=== PATIENT | female | born 1940 | race Hispanic/Latino ===

== ENCOUNTER 2020-03-17 12:53 | Inpatient (IN) | payer MEDICARE, OTHER ==
[~2020-03-17] VITALS: Ht 162.6 cm; Wt 72.2 kg
[2020-03-17 13:35] LABS: BASOPHILS # (AUTO) 0.1 (0.0-0.1); BASOPHILS % 0.7 % (0.0-1.0); EOSINOPHILS # (AUTO) 0.2 (0.0-0.4); EOSINOPHILS % 2.4 % (0.0-6.0); HEMATOCRIT 27.7 % (34.2-44.1); HEMOGLOBIN 8.1 g/dL (12.0-16.0); LYMPHOCYTES # (AUTO) 2.5 (1.0-3.2); LYMPHOCYTES % 27.6 % (18.0-39.1); MEAN CORPUSCULAR HEMOGLOBIN 22.4 pg (28-32); MEAN CORPUSCULAR HGB CONC 29.2 g/dL (31-35); MEAN CORPUSCULAR VOLUME 76.5 fL (81-99); MONOCYTES # (AUTO) 1.1 (0.2-0.8); MONOCYTES % 11.9 % (4.4-11.3); NEUTROPHILS # (AUTO) 5.2 (2.1-6.9); NEUTROPHILS % 56.7 % (38.7-80.0); PLATELET COUNT 265 x10e3/uL (140-360); RED BLOOD COUNT 3.62 x10e6/uL (3.6-5.1); RED CELL DISTRIBUTION WIDTH 21.9 % (11.7-14.4)
--- NOTE | 2020-03-17 13:41 | Diagnostic Imaging Report ---
EXAMINATION: CHEST SINGLE (PORTABLE) INDICATION: Chest pain COMPARISON: None FINDINGS: LINES/TUBES:EKG leads overlie the chest. LUNGS:The lungs are moderately inflated. There is perihilar fullness and indistinctness of the pulmonary vasculature. PLEURA:No pleural effusion or pneumothorax. MEDIASTINUM:The cardiomediastinal silhouette appears normal in size and shape. Atherosclerotic calcifications of the thoracic aorta. Postoperative findings of prior CABG. BONES/SOFT TISSUES:No acute osseous injury. Sternotomy wires in place. ABDOMEN:No free air under the diaphragm. IMPRESSION: Central pulmonary vascular congestion. No focal consolidation or jamal airspace edema. Signed by: Rick Talley MD on 03/17/2020 1:38 PM
[2020-03-17 13:46] LABS: INR 1.05; PROTHROMBIN TIME 14.2 seconds (11.9-14.5)
[2020-03-17 13:47] LABS: PARTIAL THROMBOPLASTIN TIME 33.2 seconds (23.8-35.5)
[2020-03-17 13:56] LABS: ALBUMIN 2.8 g/dL (3.5-5.0); ALBUMIN/GLOBULIN RATIO 0.8 (0.8-2.0); ANION GAP 12.8 mmol/L (8-16); CALCIUM 8.9 mg/dL (8.4-10.2); CREATININE, SERUM 1.2 mg/dL (0.57-1.11); POTASSIUM 4.8 mmol/L (3.5-5.1)
[2020-03-17 14:02] LABS: CREATINE KINASE MB 2.1 ng/mL (0-5.0)
--- NOTE | 2020-03-17 14:49 | Emergency Department Note ---
History of Present Illnes History of Present Illness Chief Complaint: Chest Pain History of Present Illness This is a 79 year old female . 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 PT WENT TO [facility] TODAY BECAUSE SHE HAD CP LAST NIGHT/GERD AND WANT TO GET IT CHECKED OUT. PT AAOX4. PT WITH PREVIOUS EXTENSIVE CARDIAC HX. CABG 2017. SKIN W/D. SINUS WIDE QRS. 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: O2, EKG, See EMS Report Onset (how long ago): day(s) (1) Location: CHEST Quality: DULL Radiation: Denies non-radiation, Denies back, Denies neck, Denies extremity, Denies abdomen, Denies periumbilical, Denies flank, Denies proximal, Denies distal, Denies other Severity: mild Onset quality: gradual Duration (how long): day(s) (1) Timing of current episode: constant, intermittent Progression: waxing and waning Chronicity: new Context: Denies recent illness, Denies recent surgery, Denies recent immobilization, Denies recent travel, Denies trauma/injury, Denies new medications, Denies hx of DVT/PE, Denies non-compliance w/ medications, Denies other Relieving factors: none Exacerbating factors: none Associated symptoms: Reports chest pain; Denies denies other symptoms, Denies confusion, Denies cough, Denies diaphoresis, Denies fever/chills, Denies headaches, Denies loss of appetite, Denies malaise, Denies nausea/vomiting, Denies rash, Denies seizure, Denies shortness of breath, Denies syncope, Denies weakness, Denies other Treatments prior to arrival: none Past Medical/Family History Physician Review I have reviewed the patient's past medical and family history. Any updates have been documented here. Past Medical History Recent Fever: No Clinical Suspicion of Infectio: No New/Unexplained Change in Ment: No Past Medical History: Hypertension, Diabetes, Hypothyroidism, CAD, Anemia, Depression, GERD, Hyperlipedemia, Chronic Kidney Disease, Osteoarthritis Other Medical History: PUD GI BLEED LFT EAR [place] CARPAL TUNNEL SYNDROME Past Surgical History: CABG Other Surgery: BLADDER Social History Smoking Cessation: Never Smoker Counseling Performed: No Alcohol Use: None Any Illegal Drug Use: No Other Any Pre-Existing Lines (PICC,: No Review of Systems Review of Systems Constitutional: Reports no symptoms EENTM: Reports no symptoms Cardiovascular: Reports as per HPI Respiratory: Reports no symptoms Gastrointestinal: Reports no symptoms Genitourinary: Reports no symptoms Musculoskeletal: Reports no symptoms Integumentary: Reports no symptoms Neurological: Reports no symptoms Psychological: Reports no symptoms Endocrine: Reports no symptoms Hematological/Lymphatic: Reports no symptoms Review of other systems: All other systems negative Physical Exam Related Data Triage Vital Signs Vital Signs Date Time Temp Pulse Resp B/P (MAP) Pulse Ox O2 Delivery O2 Flow Rate FiO2 03/17/20 12:58 98.3 70 18 136/77 97 Room Air Vital signs reviewed: Yes Physical Exam CONSTITUTIONAL Constitutional: Present well-developed, Present well-nourished HENT HENT: Present normocephalic, Present atraumatic, Present oropharynx clear/moist, Present nose normal HENT L/R: Present left ext ear normal, Present right ext ear normal EYES Eyes: Reports PERRL, Reports conjunctivae normal NECK Neck: Present ROM normal PULMONARY Pulmonary: Present effort normal, Present breath sounds normal CARDIOVASCULAR Cardiovascular: Present regular rhythm, Present heart sounds normal, Present capillary refill normal, Present normal rate GASTROINTESTINAL Abdominal: Present soft, Present nontender, Present bowel sounds normal GENITOURINARY Genitourinary: Present exam deferred SKIN Skin: Present warm, Present dry MUSCULOSKELETAL Musculoskeletal: Present ROM normal NEUROLOGICAL Neurological: Present alert, Present oriented x 3, Present no gross motor or sensory deficits PSYCHOLOGICAL Psychological: Present mood/affect normal, Present judgement normal Results Laboratory Result Diagram: 03/17/20 [facility] 03/17/20 1326 Laboratory Laboratory Tests Test 03/17/20 13:26 03/17/20 12:57 Prothrombin Time 14.2 seconds (11.9-14.5) Prothromb Time International Ratio 1.05 Activated Partial Thromboplast Time 33.2 seconds (23.8-35.5) Sodium Level 138 mmol/L (136-145) Potassium Level 4.8 mmol/L (3.5-5.1) Chloride Level 111 mmol/L (98-107) Carbon Dioxide Level 19 mmol/L (22-29) Anion Gap 12.8 mmol/L (8-16) Blood Urea Nitrogen 18 mg/dL (7-26) Creatinine 1.20 mg/dL (0.57-1.11) Estimat Glomerular Filtration Rate 44 ML/MIN (60-) BUN/Creatinine Ratio 15 (6-25) Glucose Level 157 mg/dL (74-118) Calcium Level 8.9 mg/dL (8.4-10.2) Total Bilirubin 0.5 mg/dL (0.2-1.2) Aspartate Amino Transf (AST/SGOT) 38 IU/L (5-34) Alanine Aminotransferase (ALT/SGPT) 21 IU/L (0-55) Alkaline Phosphatase 103 IU/L (40-150) Creatine Kinase 40 IU/L (29-168) Creatine Kinase MB 2.10 ng/mL (0-5.0) Troponin I 0.355 ng/mL (0-0.300) Total Protein 6.4 g/dL (6.5-8.1) Albumin 2.8 g/dL (3.5-5.0) Globulin 3.6 g/dL (2.3-3.5) Albumin/Globulin Ratio 0.8 (0.8-2.0) White Blood Count 9.08 x10e3/uL (4.8-10.8) Red Blood Count 3.62 x10e6/uL (3.6-5.1) Hemoglobin 8.1 g/dL (12.0-16.0) Hematocrit 27.7 % (34.2-44.1) Mean Corpuscular Volume 76.5 fL (81-99) Mean Corpuscular Hemoglobin 22.4 pg (28-32) Mean Corpuscular Hemoglobin Concent 29.2 g/dL (31-35) Red Cell Distribution Width 21.9 % (11.7-14.4) Platelet Count 265 x10e3/uL (140-360) Neutrophils (%) (Auto) 56.7 % (38.7-80.0) Lymphocytes (%) (Auto) 27.6 % (18.0-39.1) Monocytes (%) (Auto) 11.9 % (4.4-11.3) Eosinophils (%) (Auto) 2.4 % (0.0-6.0) Basophils (%) (Auto) 0.7 % (0.0-1.0) Neutrophils # (Auto) 5.2 (2.1-6.9) Lymphocytes # (Auto) 2.5 (1.0-3.2) Monocytes # (Auto) 1.1 (0.2-0.8) Eosinophils # (Auto) 0.2 (0.0-0.4) Basophils # (Auto) 0.1 (0.0-0.1) Absolute Immature Granulocyte (auto 0.06 x10e3/uL (0-0.1) Lab results reviewed: Yes Imaging Imaging results reviewed: Yes Procedures 12 Lead ECG Interpretation ECG Interpretation : ECG: ECG 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: Interpreted by ED physician Date: Mar 17, 2020 Time: 13:08 Rhythm: sinus rhythm Rate: normal BPM: 69 QRS axis: right Conduction: complete RBBB ST segments normal: Yes T waves normal: Yes Critical Care Time Total Critical Care Time (min): 45 Critical care time exclusive o: separately billable procedures Critcal care time spent by me: develop tx plan w patient/surrogate, discussion w primary provider, obtaining hx from patient/surrogate, order/perform tx or interventions, order/review laboratory studies, order/review radiographic studies, pulse oximetry, re-evaluation of patient condition Assessment & Plan Medical Decision Making MDM CHEST PAIN ANGINA Reassessment Reassessment BETTER Assessment & Plan Final Impression: (1) Chest pain (2) PUD (peptic ulcer disease) (3) ACS (acute coronary syndrome) Last Vital Signs Date Time Temp Pulse Resp B/P (MAP) Pulse Ox O2 Delivery O2 Flow Rate FiO2 03/17/20 13:24 98.7 65 18 159/79 100 Room Air Medications in the ED Aspirin 325 mg ONCE ONCE PO ; Start 03/17/20 at 14:45; Stop 03/17/20 at 14:46; Status SHARRON COLLINS MD Mar 17, 2020 14:49
[2020-03-17] MEDS ORDERED: ASPIRIN 81 MG CHEW TAB PO ONE (15:00)
[2020-03-17] MEDS ORDERED: ONDANSETRON HCL INJ 2MG/ML 2ML 2 MG/ML VIAL IV PRN (15:00)
[2020-03-17] MEDS ORDERED: PANTOPRAZOLE SOD 40 MG TABEC PO ONE (16:40)
[2020-03-17] MEDS ORDERED: ASPIRIN 325 MG TAB PO ONE (16:40)
--- NOTE | 2020-03-17 18:00 | NUR ---
RECEIVED REPORT FROM REMIGIO SEYMOUR. PATIENT ARRIVED TO THE UNIT @ 1800. PATIENT IN STABLE CONDITION, NO S/S OF DISTRESS NOTED. TELEMETRY APPLIED #18. IV SITE TO THE LEFT FOREARM 20 G, ASYMPTOMATIC AND PATENT, TRANSPARENT DRESSING C/D/I. BED IN LOWEST POSITION AND LOCKED, SIDE RAILS X 2 NON SKID SOCKS APPLIED. CALL LIGHT WITHIN REACH.
[2020-03-17 18:05] VITALS: BP 169/61
--- NOTE | 2020-03-17 19:14 | NUR ---
COMPLETED BEDSIDE SHIFT REPORT AND ROUNDING WITH ONCOMING NIGHT NURSE. PATIENT IN STABLE CONDITION, NO S/S OF DISTRESS NOTED. TELEMETRY APPLIED. BED IN LOWEST POSITION AND BED LOCKED, SIDE RAILS X2, NON SKID SOCK APPLIED. CALL LIGHT WITHIN REACH.
[2020-03-17 20:00] VITALS: BP 171/58
[2020-03-17 20:10] VITALS: BP 171/58
--- NOTE | 2020-03-17 20:30 | NUR ---
Admission assessment done.no pain voiced.no resp.distress.call light within reach.stool to be collected.specimen bottle given and explained to the patient.verbalised understanding.
[2020-03-17 20:34] LABS: CREATINE KINASE MB 1.9 ng/mL (0-5.0)
--- NOTE | 2020-03-17 20:50 | Consultation ---
DATE OF CONSULTATION: Cardiac Consultation REASON FOR CONSULTATION: Chest pain. HISTORY OF PRESENT ILLNESS: A 79-year-old lady, who is known with coronary artery disease, questionable myocardial infarction and coronary artery bypass surgery definitely in 2017 for three vessels in [facility]. The patient is relatively active. She was feeling for the last month or so, very weak. No energy. She went to be seen in [facility] early February, where her lab was done, which showed severe anemia. At that time, she admitted she is having melena. She is admitted to [facility] from 03/04 to 03/07/2020. She had EGD, which showed very large peptic ulcer. The patient treated and she was dismissed home. She went to be seen in [facility], where she complained of severe chest pain over the left side yesterday. But more importantly, the patient's symptoms are severe shortness of breath, easy fatigability, and no energy. The patient referred to the emergency room. Her initial troponin is borderline elevated at 0.355. Her pain responded nicely to nitroglycerin given under her tongue. She is pain-free now. Her hemoglobin is 8.1 and hematocrit 27%. Of note, the patient had blood transfusion during her hospital stay. The patient now denying having any chest pain. She does have definitely shortness of breath on exertion with easy fatigability and chest tightness going on for a month. She had left-sided chest pain, not retrosternal, very vague yesterday, which was severe. There is no pleuritic nor pericarditic component of chest pain. There is no cough. No hemoptysis. REVIEW OF SYSTEMS: Done to all 14 systems, will be summarized for clarity. GENERAL: No fever. No chills. HEENT: Decreased hearing. No vision problem. No hearing problem. PULMONARY: No cough. No hemoptysis. CARDIAC: As per History and Physical. GI: Surprisingly, the patient even when she had severe anemia, she is not having abdominal pain. She does have black melenic stool every now and then. : Increased frequency of urination. MUSCULOSKELETAL: Back pain. ENDOCRINE: No heat, no cold intolerance. The patient does have hypothyroidism, on treatment. SOCIAL HISTORY: She is divorcee. She stopped smoking few years back since 4 years ago. She does not drink alcohol. PAST MEDICAL HISTORY: 1. Coronary artery disease, prior myocardial infarction and coronary artery bypass surgery in 2017 for three vessels. 2. Bladder suspension surgery. 3. Carpal tunnel surgery. 4. Decreased hearing. HOME MEDICATIONS: Metoprolol XL 50 mg daily, Protonix 40 mg twice a day, lovastatin 40 mg a day, levothyroxine 50 mcg a day, hydralazine 25 mg q.8 hours, and Paxil 60 mg a day. ALLERGIES: NONE. FAMILY HISTORY: Positive for diabetes mellitus and hypertension. PHYSICAL EXAMINATION: VITAL SIGNS: Height of 5 feet 4 inches, weight of 170 pounds. Blood pressure 130/70, heart rate of 70, respiratory rate of 18, and temperature of 98.3 Fahrenheit. HEENT: Pupils are reactive. NECK: No elevation of jugular venous pulsation. CHEST: Clear to auscultation and percussion. HEART: PMI 5th left intercostal space. Normal first and second heart sounds. ABDOMEN: Soft. EXTREMITIES: No cyanosis. No clubbing. No edema. NEUROLOGIC: Nonfocal. LABORATORY DATA: Hemoglobin of 8.1, hematocrit 27%, and platelet count of 565,000. BUN of 18, creatinine of 1.2, sodium of 138, potassium of 4.8, and glucose of 157. Troponin of 0.355. EKG, normal sinus rhythm, right bundle branch block, left anterior fascicular block, nonspecific ST changes. Chest x-ray by report showed central pulmonary vascular congestion. No other abnormality. IMPRESSION AND PLAN: 1. Acute coronary syndrome with possible [id number] myocardial infarction, possible demand ischemia, possible occluded graft. 2. Coronary artery bypass surgery in October 2016 with WISDOM to LAD, saphenous vein graft to OM, saphenous vein graft to PDA. 3. Recent major gastrointestinal bleed. 4. The patient remains anemic despite recent blood transfusion. 5. Hypothyroidism. 6. Hypercholesterolemia. Cardiac prieto, my recommendation will be as follow: Beta-devang, statin. No aspirin for the time being because of the patient's recent gastrointestinal bleed. Checking serial H and H, of course serial cardiac enzymes. Hopefully, the enzymes will not go higher, then we can treat her medically till resolution of the current gastrointestinal bleed. I explained the patient in case her enzymes are getting higher and so on, then we will proceed with intervention. Although this will be high risk for gastrointestinal re-bleed. Protonix to be increased to twice a day because of the recent bleed. We will get an echocardiogram. Other steps will be done pending on her course, the lab data, etc. Case discussed and explained to the patient. Questions are answered. MD LILIA Shirley/AMADOU /[id number]
[2020-03-17 21:00] VITALS: BP 171/58
[2020-03-17] MEDS: ATORVASTATIN 40 MG TAB PO SCH (21:47)
[2020-03-17] MEDS: PANTOPRAZOLE SOD 40 MG TABEC PO SCH (22:14)
[2020-03-17] MEDS: HYDRALAZINE HCL 25 MG TAB PO SCH (22:50)
[2020-03-18] VITALS (9 sets, daily range): BP systolic 101–179; BP diastolic 44–65
--- NOTE | 2020-03-18 00:25 | History and Physical ---
PRIMARY CARE DOCTOR: Dr. Ash Andrade. CHIEF COMPLAINT: Chest pain. HISTORY OF PRESENT ILLNESS: This is a 79-year-old woman, who was just discharged from [facility] for anemia. The patient was discharged 6 days ago. The patient was transfused with 1 unit of blood. EGD was done, which showed gastric ulcer. Three days ago, the patient developed left-sided chest pain, lasted for about 3 hours, subsequently went away. The patient also has some shortness of breath. The patient also noticed more dyspnea on exertion. Today, the patient had a followup appointment with her primary care doctor. While over there, her chest pain came back again. This was relieved with nitroglycerin. The patient denies any radiation. No nausea or vomiting. No cough. PAST MEDICAL AND PAST SURGICAL HISTORY: 1. Coronary artery disease, status post CABG 2 years ago. 2. Diabetes. 3. Chronic kidney disease. 4. Hypertension. 5. Dyslipidemia. 6. Hypothyroidism. 7. Peptic ulcer disease. MEDICATIONS: Please see medication reconciliation form. ALLERGIES: NONE. SOCIAL HISTORY: Does not smoke. FAMILY HISTORY: Positive for heart disease. REVIEW OF SYSTEMS: A 10-point review of systems obtained and nothing else is significant other than what is stated in HPI. PHYSICAL EXAMINATION: VITAL SIGNS: Temperature 97.8, pulse 63, respiratory rate 18, blood pressure 168/62. GENERAL: No acute distress. SKIN: No rash. HEENT: Anicteric. Oropharynx is clear. LUNGS: Clear. HEART: Regular rate and rhythm. Normal S1 and S2. GI: Abdomen is soft, nondistended. NEUROLOGIC: Alert and oriented x3. Cranial nerves II through XII grossly intact. PSYCHIATRIC: No hallucination. MUSCULOSKELETAL: Painless range of motion. LABORATORY DATA: White count 9, hemoglobin 8.1, MCV 76.5, and platelet count 265. PT and PTT are normal. Bicarb 19, creatinine 1.2, GFR 44, sugar 157. Troponin is 0.355. Chest x-ray shows some congestion. ASSESSMENT AND PLAN: 1. Chest pain, possibly [id number] myocardial infarction. The patient has been evaluated by Cardiology. At this time, we will hold further aspirin given recent transfusion and gastric ulcer. We will get an echocardiogram and also repeat troponin. The patient will continue on beta-devang and statin. 2. Microcytic anemia. We will check iron studies. She may benefit from iron infusion. We will continue proton pump inhibitor twice a day. 3. Uncontrolled hypertension. We will restart her home medications including losartan, hydralazine, and metoprolol. We will also order IV hydralazine as needed. 4. Stage 3 chronic kidney disease due to diabetes with mild metabolic acidosis. We will continue to monitor. We will continue losartan. 5. Hypothyroidism. We will continue levothyroxine. We will check a TSH. 6. Diabetes. We will continue sliding scale and we will get hemoglobin A1c in the morning. 7. Gastrointestinal and deep venous thrombosis prophylaxis. No chemical deep venous thrombosis prophylaxis given anemia. Tammyching MD JERRY Hawkins/AMADOU /[id number] cc: [facility]
[2020-03-18] MEDS ORDERED: PROTONIX20 MG PO (03:48)
[2020-03-18] MEDS ORDERED: LOSARTAN POTASS25 MG PO (03:48)
[2020-03-18] MEDS ORDERED: HYDRALAZINE HCL25 MG PO (03:48)
[2020-03-18] MEDS ORDERED: LOVASTATIN40 MG PO (03:48)
[2020-03-18] MEDS ORDERED: CYMBALTA30 MG PO (03:48)
[2020-03-18] MEDS ORDERED: ASPIRIN81 MG PO (03:48)
[2020-03-18] MEDS ORDERED: LEVOTHYROXINE50 MCG PO (03:48)
[2020-03-18] MEDS ORDERED: METOPROLOL SUCC50 MG PO (03:56)
[2020-03-18] MEDS: LEVOTHYROXINE SODIUM 50 MCG TAB PO SCH (05:52)
[2020-03-18 06:12] LABS: BASOPHILS # (AUTO) 0.1 (0.0-0.1); BASOPHILS % 0.6 % (0.0-1.0); EOSINOPHILS # (AUTO) 0.3 (0.0-0.4); EOSINOPHILS % 3.5 % (0.0-6.0); HEMATOCRIT 24.3 % (34.2-44.1); HEMOGLOBIN 7.3 g/dL (12.0-16.0); LYMPHOCYTES # (AUTO) 2.7 (1.0-3.2); LYMPHOCYTES % 33.1 % (18.0-39.1); MEAN CORPUSCULAR HEMOGLOBIN 22.5 pg (28-32); MEAN CORPUSCULAR VOLUME 74.8 fL (81-99); MONOCYTES % 12.3 % (4.4-11.3); NEUTROPHILS # (AUTO) 4.1 (2.1-6.9); NEUTROPHILS % 49.9 % (38.7-80.0); PLATELET COUNT 229 x10e3/uL (140-360); RED BLOOD COUNT 3.25 x10e6/uL (3.6-5.1); RED CELL DISTRIBUTION WIDTH 21.5 % (11.7-14.4)
[2020-03-18 06:35] LABS: ALBUMIN 2.3 g/dL (3.5-5.0); ALBUMIN/GLOBULIN RATIO 0.7 (0.8-2.0); ANION GAP 11.9 mmol/L (8-16); CALCIUM 8.5 mg/dL (8.4-10.2); CREATININE, SERUM 0.96 mg/dL (0.57-1.11); POTASSIUM 4.9 mmol/L (3.5-5.1)
--- NOTE | 2020-03-18 07:00 | NUR ---
BEDSIDE SHIFT REPORT RECEIVED FROM THE CNA CAREGIVER RN. EDUCATED PT ABOUT FALL PRECAUTIONS. PT VERBALIZED UNDERSTANDING. CALL LIGHT WITH IN EASY REACH. INSTRUCTED PT TO USE CALL LIGHT FOR ALL THE NEEDS. BED IS LOW AND LOCKED. SIDE RAILS X2. PT DENIES NEEDS AT THIS TIME.
[2020-03-18 07:08] LABS: CHOL/HDL RATIO 3.6 (3.0-3.6)
--- NOTE | 2020-03-18 07:10 | NUR ---
Bed side shift report given to oncoming Rn.stable condition.
[2020-03-18 07:21] LABS: THYROID STIMULATING HORMONE 3.444 uIU/mL (0.350-4.940)
[2020-03-18 07:29] LABS: CREATINE KINASE MB 1.4 ng/mL (0-5.0)
[2020-03-18 07:48] LABS: % IRON SATURATION 6 % (15-50); IRON 23 ug/dL (50-170); TOTAL IRON BINDING CAPACITY 392 ug/dL (261-478); TRANSFERRIN 280 mg/dL (180-382)
[2020-03-18] MEDS: HYDRALAZINE HCL 25 MG TAB PO SCH ×3 (08:52→20:47)
[2020-03-18] MEDS ORDERED: LOSARTAN POTASSIUM 100 MG TAB PO SCH (09:00)
[2020-03-18] MEDS ORDERED: ASPIRIN 325 MG TAB EC PO SCH (09:00)
[2020-03-18] MEDS ORDERED: PANTOPRAZOLE SOD 40 MG TABEC PO SCH (09:00)
[2020-03-18] MEDS: PANTOPRAZOLE SOD 40 MG TABEC PO SCH ×2 (09:00→16:16)
[2020-03-18] MEDS: METOPROLOL SUCCINATE 50 MG TAB XL PO SCH (09:02)
--- NOTE | 2020-03-18 11:50 | NUR ---
OCCULT BLOOD STOOL PENDING FOR THE PT. PT IS AWARE. NO BM YET PER THE PT.
[2020-03-18] MEDS: IRON SUCROSE 100 MG in SODIUM CHLORIDE 0.9% 100 ML 100 ML IV SCH (13:28)
[2020-03-18] MEDS ORDERED: SODIUM CHLORIDE 0.9% 250ML 250 ML ONE (13:35)
[2020-03-18] MEDS ORDERED: LACTULOSE SYRUP 20 GM/30 ML UDC PO ONE (15:20)
[2020-03-18] MEDS: LOSARTAN POTASSIUM 25 MG TAB PO SCH (15:25)
--- NOTE | 2020-03-18 15:32 | NUR ---
PAGED DR. OLMEDO AND INFORMED PT VITALS BP 184/55 HR 70.
--- NOTE | 2020-03-18 19:00 | NUR ---
BEDSIDE SHIFT REPORT GIVEN TO THE BLUE LEATHER SORTER RN. PT DENIED FURTHER NEEDS.
--- NOTE | 2020-03-18 19:08 | NUR ---
Received the patient in report.no pain voiced.stable condition.lyeing in the bed.bed locked and in lowest position.phone and call light within reach.instructed to call for assistance as needed.
[2020-03-18] MEDS: ATORVASTATIN 40 MG TAB PO SCH (20:47)
[2020-03-18] MEDS ORDERED: HYDRALAZINE HCL 20 MG/ML VIAL IV PRN ×2 (21:00)
--- NOTE | 2020-03-18 22:21 | Progress Note ---
DATE: 03/18/2020 SUBJECTIVE: No chest pain. OBJECTIVE: VITAL SIGNS: Temperature 98.6, pulse 67, respiratory rate 16, and blood pressure 148/60. GENERAL: No acute distress. SKIN: No rash. LUNGS: Clear. HEART: Regular rate and rhythm. Normal S1 and S2. GI: Abdomen is soft and nondistended. NEUROLOGIC: Alert and oriented x3. PSYCHIATRIC: No hallucination. LABORATORY DATA: Laboratory prieto, hemoglobin 7.3. Creatinine 0.96. Iron saturation is 6%. Hemoglobin A1c is 6. ASSESSMENT AND PLAN: 1. Chest pain. Cardiology is on the case. Given her troponin trend, possibly she may had a small coo-[id number] myocardial infarction. At this time, we will continue to hold her aspirin given her anemia. Echocardiogram is pending. I will continue beta-devang and statin. We will also continue hydralazine for blood pressure and also along with her losartan. 2. Iron deficiency anemia. We will start iron infusion or continue proton pump inhibitor twice a day. We will repeat hemoglobin in the morning, hopefully she does not need any transfusion. 3. Mild acute kidney injury, resolved. 4. Hypothyroidism, continue levothyroxine. 5. Diabetes, well controlled. A1c is 6.0. 6. Gastrointestinal and deep venous thrombosis prophylaxis. No chemical deep venous thrombosis prophylaxis due to anemia. MD JERRY Fink/AMADOU /[id number]
--- NOTE | 2020-03-18 23:31 | NUR ---
Resting in the bed.no pain voiced.no resp.distress noted.phone and call light within reach.ambulates .voided.
[2020-03-19] VITALS (8 sets, daily range): BP systolic 117–148; BP diastolic 42–83
[2020-03-19] MEDS: LEVOTHYROXINE SODIUM 50 MCG TAB PO SCH (05:34)
--- NOTE | 2020-03-19 07:00 | NUR ---
PATIENT IS ALERT, AWAKE, AND IN STABLE CONDITION WITH NO S/S OF RESPIRATORY DISTRESS. NO PAIN VOICED. TELE APPLIED. CALL LIGHT IS WITHIN REACH, PATIENT INSTRUCTED TO CALL FOR ASSISTANCE NEEDED.
--- NOTE | 2020-03-19 07:01 | NUR ---
Bed side shift report given to oncoming rn.stable condition.
[2020-03-19] MEDS: METOPROLOL SUCCINATE 50 MG TAB XL PO SCH (08:09)
[2020-03-19] MEDS: PANTOPRAZOLE SOD 40 MG TABEC PO SCH ×2 (08:09→16:50)
[2020-03-19] MEDS: HYDRALAZINE HCL 25 MG TAB PO SCH ×3 (08:09→21:00)
[2020-03-19] MEDS: LOSARTAN POTASSIUM 25 MG TAB PO SCH (08:09)
[2020-03-19] MEDS ORDERED: LOSARTAN POTASSIUM 25 MG TAB PO SCH (09:00)
[2020-03-19] MEDS: IRON SUCROSE 100 MG in SODIUM CHLORIDE 0.9% 100 ML 100 ML IV SCH (12:00)
[2020-03-19] MEDS ORDERED: REGADENOSON 0.4 MG/5 ML SYR IV ONE (15:35)
--- NOTE | 2020-03-19 16:48 | NUR ---
PATIENT BACK ON THE UNIT FROM NUCLEAR MEDICINE- REASSESS TEMPERATURE RESULT 99.5. PATIENT IN STABLE CONDITION WITH NO S/S OF RESPIRATORY DISTRESS. NO PAIN VOICED. CALL LIGHT IS WITHIN REACH, PATIENT INSTRUCTED TO CALL FOR ASSISTANCE NEEDED.
[2020-03-19] MEDS: SODIUM CHLORIDE 0.9% 1000ML 1,000 ML IV SCH (18:03)
[2020-03-19] MEDS: DULOXETINE HCL 30 MG DELAYED RELEASE PO SCH (18:03)
--- NOTE | 2020-03-19 19:24 | NUR ---
BEDSIDE SHIF REPORT RECEIVED FROM DAY RN. PT IS ALERT AND ORIENTED X3. TELE ON SR BBB. NS INFUSING VIA LEFT FA AT 75ML/HR.RESPIRATIONS ARE EVEN AND UNLABORED. PT TO HAVE CARDIAC CATH THIS AM. PT TO BE NPO AFTER 12MN. FAMILY AND PT TALKED WITH DR ESCALERA ON THE TELEPHNE YESTERDAY.LABS TO BE CALLED TO DR PICKARD THIS AM 03/20.CALL LIGHT WITHIN REACH. BED LOCKED IN LOW POSITION.
--- NOTE | 2020-03-19 19:27 | NUR ---
PATIENT IN STABLE CONDITION WITH NO S/S OF RESPIRATORY DISTRESS. NO PAIN VOICED. IV FLUIDS INFUSING. TELEMETRY APPLIED. PATIENT IS AWARE SHE WILL BE NPO AFTERMIDNIGHT FOR CARDIAC CATH TOMORROW. CALL LIGHT IS WITHIN REACH, PATIENT INSTRUCTED TO CALL FOR ASSISTANCE NEEDED. REPORT GIVEN TO ONCOMING NURSE.
--- NOTE | 2020-03-19 22:11 | Progress Note ---
DATE: 03/19/2020 SUBJECTIVE: Feeling tired this afternoon. OBJECTIVE: VITAL SIGNS: T-max 100.1, pulse 76, respiratory rate 20, and blood pressure 134/42. GENERAL: Appears tired. SKIN: No rash. LUNGS: Clear. HEART: Regular rate and rhythm. Normal S1 and S2. GI: Abdomen is soft and nondistended. NEUROLOGIC: Alert and oriented x3. PSYCHIATRIC: No hallucination. LABORATORY DATA: Laboratory prieto, hemoglobin 7.9. ASSESSMENT AND PLAN: 1. Chest pain, being evaluated by Cardiology. Given her troponin trend, possibly she may had a small iso-IV-miulbvplh myocardial infarction. Her stress test was done. Unfortunately, she did not pass. At this time, the plan is for a left heart catheterization tomorrow if her hemoglobin was stable. We will continue beta-devang and a statin. We will hold aspirin for now given her anemia. 2. Iron deficiency anemia. We will continue proton pump inhibitor twice a day and an iron infusion. 3. Mild acute kidney injury, which is resolved. 4. Gastrointestinal and deep venous thrombosis prophylaxis. No chemical deep venous thrombosis prophylaxis due to anemia. MD JERRY Fink/AMADOU /[id number]
[2020-03-19] MEDS: ATORVASTATIN 40 MG TAB PO SCH (22:49)
[2020-03-20] VITALS: BP 112/60
[2020-03-20 04:55] VITALS: BP 99/52
[2020-03-20] MEDS: SODIUM CHLORIDE 0.9% 1000ML 1,000 ML IV SCH ×2 (05:53→20:10)
[2020-03-20] MEDS: LEVOTHYROXINE SODIUM 50 MCG TAB PO SCH (05:53)
[2020-03-20 06:11] LABS: BASOPHILS # (AUTO) 0.1 (0.0-0.1); BASOPHILS % 0.5 % (0.0-1.0); EOSINOPHILS # (AUTO) 0.1 (0.0-0.4); EOSINOPHILS % 0.7 % (0.0-6.0); HEMATOCRIT 26.3 % (34.2-44.1); HEMOGLOBIN 7.9 g/dL (12.0-16.0); LYMPHOCYTES # (AUTO) 5.4 (1.0-3.2); MEAN CORPUSCULAR HEMOGLOBIN 22.4 pg (28-32); MEAN CORPUSCULAR VOLUME 74.7 fL (81-99); MONOCYTES # (AUTO) 2.2 (0.2-0.8); MONOCYTES % 11.4 % (4.4-11.3); NEUTROPHILS # (AUTO) 11.2 (2.1-6.9); NEUTROPHILS % 58.4 % (38.7-80.0); PLATELET COUNT 282 x10e3/uL (140-360); RED BLOOD COUNT 3.52 x10e6/uL (3.6-5.1); RED CELL DISTRIBUTION WIDTH 22.3 % (11.7-14.4)
[2020-03-20 06:29] LABS: ALBUMIN 2.6 g/dL (3.5-5.0); ALBUMIN/GLOBULIN RATIO 0.7 (0.8-2.0); ANION GAP 14.6 mmol/L (8-16); CALCIUM 8.8 mg/dL (8.4-10.2); CREATININE, SERUM 1.29 mg/dL (0.57-1.11); POTASSIUM 4.6 mmol/L (3.5-5.1)
[2020-03-20] MEDS ORDERED: HEPARIN SOD (PORCINE) 1000 UNIT/ML 30ML ONE (07:09)
[2020-03-20] MEDS ORDERED: MIDAZOLAM HCL 2 MG/2 ML VIAL ONE (07:09)
[2020-03-20] MEDS ORDERED: LIDOCAINE HCL 2% LOCAL 20 ML VIAL ONE (07:10)
[2020-03-20] MEDS ORDERED: NITROGLYCERIN/D5W 200 MCG/ML 250 ML ONE (07:10)
[2020-03-20] MEDS ORDERED: FENTANYL CITRATE/PF 100MCG/2 ML INJ ONE (07:10)
[2020-03-20] MEDS ORDERED: SODIUM CHLORIDE 0.9% 1000ML 1,000 ML ONE (07:10)
[2020-03-20] MEDS ORDERED: HEPARIN SOD/SOD CHLORIDE 2,000 ML ONE (07:10)
[2020-03-20] MEDS ORDERED: IOPAMIDOL 370 MG/ML 200 ML INFUS..BTL INJ ONE ×2 (07:11→08:07)
--- NOTE | 2020-03-20 07:27 | NUR ---
LAB RESULTS CALLED TO DR ESCALERA BY COSTUMER ASSISTANT. OK TO DO CARDIAC CATH. PT CALLED HER SON.
--- NOTE | 2020-03-20 08:35 | NUR ---
Received patient from chemical laboratory chief. Right groin access checked, no hematoma, no bleeding noted, dressing intact. Bilateral pedal pulses palpated 2+. Patient is advised not to move the right leg and lay straight for 4 hours as ordered. Verbalized understanding. Respiration even and unlabored without SOB. Call light is placed within reach and told to call for assistance.
[2020-03-20] MEDS: PANTOPRAZOLE SOD 40 MG TABEC PO SCH ×2 (09:00→14:10)
[2020-03-20] MEDS: HYDRALAZINE HCL 25 MG TAB PO SCH ×3 (09:00→21:00)
--- NOTE | 2020-03-20 09:12 | Operative Report ---
DATE OF PROCEDURE: 03/20/2020 SURGEON: Betsy Huerta MD TITLE OF THE PROCEDURE: Left cardiac catheterization with graft injection. INDICATION: Unstable coronary syndrome, very abnormal nuclear stress test. TECHNICAL DETAILS: After the usual sterile preparation and draping procedure, intravenous Versed and fentanyl given for sedation, local Xylocaine for anesthesia. A 4-Bengali sheath established in place. Gabby left 4 and 3DRC catheter to engage the coronaries, as well as subclavian injection for WISDOM and saphenous vein graft to the OM. For the SVG to the RCA, we used a multipurpose. Pigtail for hemodynamic measurement and left ventriculogram. At the end of the procedure, sheath was removed. Hemostasis was achieved manually. No complication. No blood loss. Of note, the patient prior to the procedure, her white blood cell count are 19.2, her temperature was 99.3, and her hemoglobin 7.9 and hematocrit 26%. All this numbers before the procedure. RESULTS: 1. Coronary angiogram. a. Left main: Ostial lesion 50%, distal lesion of 90%, very calcified artery. b. LAD: Diffusely diseased with competitive flow from the WISDOM. c. Circumflex: Giving very high obtuse marginal, almost ramus like and then the other branches are occluded. d. Right coronary artery: A 50% mid and 70-80% distal calcified, giving PLV branch. PDA is totally occluded. The WISDOM to LAD seems to be patent, but the problem is with the left subclavian, which got 99% lesion early after its origin and the left vertebral seems to be small and 80% lesion there. SVG to OM is patent with 40% as anastomosis. SVG to PDA is patent. IMPRESSION: 1. Left main and three-vessel coronary artery disease as described above. 2. A 95-99% left subclavian supplying left internal mammary artery to left anterior descending. 3. Patent saphenous vein graft to obtuse marginal. 4. Patent saphenous vein graft to posterior descending artery. 5. Severely diseased right coronary artery, which is giving large PLV. 6. Heavily calcified artery, including heavily calcified femorals. RECOMMENDATION: That is a complex case. CD is made and given to the patient. We need to await the patient anemia to be resolved. Of note, the patient had major GI bleed as per record from [facility] with large peptic ulcer. Her hemoglobin in the 7. Furthermore, the patient having elevated white blood cell count at 19.2, which is new from a couple of days lab. There are no obvious source for infection at this time. Regardless, whatever decision made in managing this patient is very complex. Because of the diffuse nature of the disease and the disease, subclavian, etc., it needs to have multidisciplinary approach with fixing the subclavian and possibly working on the RCA and maybe the left main. COMPLICATION: None. ESTIMATED BLOOD LOSS: None. MD LILIA Shirley/AMADOU /[id number]
[2020-03-20 09:20] VITALS: BP 99/52
[2020-03-20 09:55] LABS: ANISOCYTOSIS MODERATE; LYMPHOCYTES % (MANUAL) 35 % (19-48); MICROCYTOSIS SLIGHT; MONOCYTES % (MANUAL) 5 % (3.4-9.0); NEUTROPHILS % (MANUAL) 60 % (40-74); PLATELET ESTIMATE ADEQUATE; PLATELET MORPHOLOGY COMMENT NORMAL; RBC MORPHOLOGY COMMENT ABNORMAL
[2020-03-20 09:56] LABS: HYPOCHROMASIA SLIGHT; OVALOCYTES FEW; POLYCHROMASIA FEW
--- NOTE | 2020-03-20 10:49 | Myoview Stress Test ---
DATE OF STUDY: 03/19/2020 11:30:00 TITLE OF THE TEST: Lexiscan nuclear cardiac stress test. TECHNICAL DETAILS: This is resting stress protocol. For the resting images, 11 millicurie of Myoview given. After half an hour, proper SPECT imaging and scanning were done. For the stress part, Lexiscan 0.4 mg intravenously followed by 33 millicurie of Myoview. Half an hour after that, SPECT imaging and scanning were done. The patient tolerated the test. There were no complications. RESULTS: A: Hemodynamics: 1. Heart rate remained stable from 86-96 per minute. 2. Blood pressure remained stable at 140/50 to 160/53. No ST-T segment changes. B: Nuclear imaging: I- Myocardial perfusion: 1. Resting images: Showed smooth distribution of the isotope in all segments with no abnormal uptake. 2. Stress images: Showed decreased uptake in the anterior and lateral segments. Moderate to large size defect. II- Segmental wall motion: Normal wall motion with no segmental wall motion abnormality. III- Heart volumes: End-diastolic volume of 79 mL and systolic volume of 20 mL with ejection fraction of 74%. IMPRESSION: Very abnormal nuclear cardiac stress test with moderate to large ischemic area in the lateral and anterior segments with preserved left ventricular systolic function. MD LILIA Shirley/MODL /[id number]
--- NOTE | 2020-03-20 11:00 | Diagnostic Imaging Report ---
X-ray chest AP portable Comparison: None. History: Leukocytosis Findings: Status post median sternotomy and CABG. Cardiomegaly. Atherosclerotic aorta. No pleural effusion. No pneumothorax. Prominence of vascularity in the left upper lobe. No definite focal lung infiltrates. Status post posterior cervical spine fusion. Status post left shoulder orthopedic surgery. Impression: No significant acute cardiopulmonary disease on this exam. Signed by: Bc Starr MD on 03/20/2020 10:57 AM the SI this is
[2020-03-20 11:29] VITALS: BP 140/46
[2020-03-20] MEDS: METOPROLOL SUCCINATE 50 MG TAB XL PO SCH (13:00)
[2020-03-20] MEDS: IRON SUCROSE 100 MG in SODIUM CHLORIDE 0.9% 100 ML 100 ML IV SCH (13:00)
[2020-03-20] MEDS: DULOXETINE HCL 30 MG DELAYED RELEASE PO SCH (13:00)
[2020-03-20] MEDS: LOSARTAN POTASSIUM 25 MG TAB PO SCH (13:00)
[2020-03-20 14:03] LABS: BILIRUBIN,URINE NEGATIVE (NEGATIVE); CLARITY,URINE CLEAR (CLEAR); COLOR,URINE YELLOW (YELLOW); KETONES,URINE NEGATIVE (NEGATIVE); LEUKOCYTE ESTERASE ,URINE NEGATIVE (NEGATIVE); NITRITE,URINE NEGATIVE (NEGATIVE); PROTEIN,URINE DIPSTICK NEGATIVE (NEGATIVE); URINE UROBILINOGEN 0.2 mg/dL (0.2 - 1)
[2020-03-20 14:18] LABS: BACTERIA,URINE RARE /HPF; EPITHELIAL CELLS,URINE FEW /LPF; RBC,URINE 0-5 /HPF (0-5)
[2020-03-20 14:19] LABS: RENAL EPITHELIAL CELLS,URINE RARE
[2020-03-20 15:53] VITALS: BP 145/45
--- NOTE | 2020-03-20 19:15 | NUR ---
BEDSIDE SHIFT REPORT RECEIVED FROM DAY RN. PT IS ALERT AND ORIENTED X3. RESPIRATIONS ARE EVEN AND UNLABORED. TELE ON. GROIN DRESSING IS DRY AND INTACT. NS INFUSING AT 75 ML/HR VIA LEFT FA- 20 G.. PT AMBULATING TO BATHROOM. PT DENIES PAIN. CALL LIGHT WITHIN REACH. BED IN LOW POSITION.
[2020-03-20 20:00] VITALS: BP 147/52
--- NOTE | 2020-03-20 21:00 | NUR ---
LEFT PIV LEAKING. 20 G IV D/C WITH CATHETER INTACT. 22 G SL STARTED IN RT WRIST. PT TOLERATED PROCEDURE WELL.
[2020-03-20] MEDS: ATORVASTATIN 40 MG TAB PO SCH (21:46)
--- NOTE | 2020-03-20 23:32 | Progress Note ---
DATE: 03/20/2020 SUBJECTIVE: Feels better today, not tired anymore. OBJECTIVE: VITAL SIGNS: Temperature 97.9, pulse 74, respiratory rate 18, blood pressure 145/45. GENERAL: No acute distress. SKIN: No rash. LUNGS: Clear. HEART: Regular rate and rhythm. Normal S1, S2. GI: Abdomen is soft, nondistended. NEUROLOGIC: Alert and oriented x3. PSYCHIATRIC: No hallucination. LABORATORY: White count 19, hemoglobin 7.9, platelet count 282, creatinine 1.29. ASSESSMENT/PLAN: 1. Likely a small resolving non ST-elevation myocardial infarction. The patient failed her stress test yesterday and had a left heart catheterization today. I spoke to Dr. Huerta. The patient has a left main and three-vessel coronary disease. At this time, she does have a 95-99% left subclavian supplying left internal mammary artery to left anterior descending. At this time, we will wait till her anemia is better, then at that time, the patient will need a multidisciplinary approach to fix this subclavian and possibly the RCA, and may be the left main. 2. Iron deficiency anemia. We will continue IV infusion and proton pump inhibitor twice a day. 3. Mild acute kidney injury, resolved. 4. Gastrointestinal and deep vein thrombosis prophylaxes. No chemical deep vein thrombosis prophylaxis due to anemia. 5. Leukocytosis. The patient is afebrile. UA and chest x-rays are okay, possibly reacting to iron infusion, possibly reactive. The patient clinically stable. We will repeat the WBC in the morning. If that is better, the patient can be discharged, and I will update primary care doctor in detail. Tammyching MD JERRY Hawkins/AMADOU /[id number]
[2020-03-21] VITALS (14 sets, daily range): BP systolic 100–133; BP diastolic 40–89
[2020-03-21] MEDS: LEVOTHYROXINE SODIUM 50 MCG TAB PO SCH (05:49)
[2020-03-21 06:06] LABS: BASOPHILS # (AUTO) 0.1 (0.0-0.1); BASOPHILS % 0.5 % (0.0-1.0); EOSINOPHILS # (AUTO) 0.2 (0.0-0.4); EOSINOPHILS % 1.9 % (0.0-6.0); LYMPHOCYTES # (AUTO) 3.7 (1.0-3.2); LYMPHOCYTES % 28.6 % (18.0-39.1); MEAN CORPUSCULAR HEMOGLOBIN 22.2 pg (28-32); MEAN CORPUSCULAR HGB CONC 29.9 g/dL (31-35); MEAN CORPUSCULAR VOLUME 74.2 fL (81-99); MONOCYTES # (AUTO) 1.6 (0.2-0.8); MONOCYTES % 12.1 % (4.4-11.3); NEUTROPHILS # (AUTO) 7.3 (2.1-6.9); NEUTROPHILS % 56.1 % (38.7-80.0); PLATELET COUNT 259 x10e3/uL (140-360); RED BLOOD COUNT 3.02 x10e6/uL (3.6-5.1); RED CELL DISTRIBUTION WIDTH 22.3 % (11.7-14.4)
[2020-03-21 06:26] LABS: HEMATOCRIT 22.4 % (34.2-44.1); HEMOGLOBIN 6.7 g/dL (12.0-16.0)
--- NOTE | 2020-03-21 06:30 | NUR ---
LAB CALLED WITH CRITICAL VALUE. HGB 6.7 HCT 22.4 WBC 12.75. CALLED RESULTS TO DR OLMEDO.DR WATKINS INSTRUCT NURSE TO WAIT UNTIL CARDIOLOGY COMES BY TO ASK WHAT TO DO. HE DOES NOT WANT TO GIVE BLOOD.
[2020-03-21 06:33] LABS: ALBUMIN 2.3 g/dL (3.5-5.0); ALBUMIN/GLOBULIN RATIO 0.7 (0.8-2.0); ANION GAP 9.2 mmol/L (8-16); CALCIUM 8.2 mg/dL (8.4-10.2); CREATININE, SERUM 1.08 mg/dL (0.57-1.11); POTASSIUM 4.2 mmol/L (3.5-5.1)
[2020-03-21 07:59] LABS: EOSINOPHILS % (MANUAL) 1 % (0-7); LYMPHOCYTES % (MANUAL) 20 % (19-48); MONOCYTES % (MANUAL) 13 % (3.4-9.0); MYELOCYTES % (MANUAL) 1 % (0-0); NEUTROPHILS % (MANUAL) 65 % (40-74)
[2020-03-21 08:00] LABS: ANISOCYTOSIS MODERATE; BURR CELLS SLIGHT; HYPOCHROMASIA SLIGHT; OVALOCYTES FEW; POLYCHROMASIA FEW; RBC MORPHOLOGY COMMENT ABNORMAL
[2020-03-21 08:01] LABS: PLATELET ESTIMATE ADEQUATE; PLATELET MORPHOLOGY COMMENT NORMAL
[2020-03-21] MEDS ORDERED: SODIUM CHLORIDE 0.9% 250ML 250 ML IV ONE (08:30)
[2020-03-21] MEDS: HYDRALAZINE HCL 25 MG TAB PO SCH ×3 (09:00→20:37)
[2020-03-21] MEDS: LOSARTAN POTASSIUM 25 MG TAB PO SCH (09:00)
[2020-03-21] MEDS: PANTOPRAZOLE SOD 40 MG TABEC PO SCH ×2 (09:11→17:42)
[2020-03-21] MEDS: METOPROLOL SUCCINATE 50 MG TAB XL PO SCH (09:11)
[2020-03-21] MEDS: DULOXETINE HCL 30 MG DELAYED RELEASE PO SCH (09:11)
[2020-03-21] MEDS ORDERED: SODIUM CHLORIDE 0.9% 250ML 250 ML ONE (12:44)
--- NOTE | 2020-03-21 15:15 | NUR ---
blood transfusion started.
--- NOTE | 2020-03-21 18:28 | NUR ---
1 unit of prbc infused. patient doing well. wctm.
--- OUTSIDE RECORDS SUMMARY | 2020-03-21 18:50 | XMS REPORT | Clinical Summary ---
Author Author EDWIN [facility] Address Unknown Phone Unavailable Care Team Providers Care Storekeeper Engineering Name Role Phone Ash Andrade MD PCP Unavailable Allergies No Known Allergies Medications End Date Status Medication Sig Dispensed Refills Start Date Active aspirin 81 MG EC tablet Take 81 mg by 0 mouth daily. Active HYDROcodone-acetaminophen Take 1 tablet 0 (NORCO 5-325) 5-325 mg by mouth per tablet every 8 (eight) hours as needed for Pain . Active levothyroxine (SYNTHROID, Take 50 mcg 0 LEVOTHROID) 50 MCG tablet by mouth Every morning on an empty stomach. Active DULoxetine (CYMBALTA) 60 Take 60 mg by 0 MG capsule mouth daily. Active fenofibrate (TRICOR) 48 Take 48 mg by 0 MG tablet mouth daily. Active gabapentin (NEURONTIN) Take 1 30 capsule 0 300 MG capsule capsule (300 8 mg total) by mouth nightly. Active metoprolol (TOPROL-XL) 50 Take 1 tablet 60 tablet 0 MG 24 hr tablet (50 mg total) 8 by mouth 2 (two) times daily Note change in dose. Active lovastatin (MEVACOR) 40 Take 1 tablet 0 01/20/ 202 MG tablet by mouth 0 nightly. Active triamcinolone (KENALOG) Apply 1 0 0.1 % topical cream application 7 topically daily APPLY TO AFFECTED AREA(S) ONCE DAILY NEEDED FOR RASH. Active hydrALAZINE (APRESOLINE) Take 1 tablet 180 tablet 0 25 MG tablet (25 mg total) 0 by mouth every 8 (eight) hours Hold for SBP < 110 mmHg. Active pantoprazole (PROTONIX) Take 1 tablet 60 tablet 0 40 MG tablet (40 mg total) 0 by mouth 2 (two) times daily. 03/04/2020 Discontinued simvastatin (ZOCOR) 20 MG Take 20 mg by 0 tablet mouth nightly. 03/07/2020 Discontinued lisinopril Take 1 tablet 30 tablet 0 (PRINIVIL,ZESTRIL) 10 MG (10 mg total) 8 tablet by mouth daily Note change in dose. 03/04/2020 Discontinued atorvastatin (LIPITOR) 80 Take 1 tablet 90 tablet 0 MG tablet (80 mg total) 8 by mouth nightly Take instead of simvastatin. 03/07/2020 Discontinued COZAAR 50 mg tablet Take 1 tablet 0 by mouth 0 every morning. 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 11/04/2016 pectoris Bilateral carotid artery stenosis 11/04/2016 CKD (chronic kidney disease) stage 3, GFR 30-59 ml/mi n 11/04/2016 Essential hypertension 11/04/2016 H/O major depression 11/04/2016 Cervical spinal stenosis s/p fusion 02/06/2013 Resolved Problems Problem Noted Date Resolved Date Visual loss 11/18/2017 03/04/2020 Postoperative anemia due to acute blood loss 11/11/2016 03/04/2020 FRITZ (acute kidney injury) 11/11/2016 03/04/2020 Oliguria 11/10/2016 03/04/2020 Acute pulmonary insufficiency following thoracic surgery 0 11/09/2016 03/04/2020 Dyslipidemia 11/04/2016 03/04/2020 Encounters Care Team Description Date Type Specialty Reny Michelle CRNA 03/05/2020 Anesthesia Gastroenterology Event Eric Barkley UPPER ENDOSCOPY 03/05/2020 Surgery Gastroenterology 03/05/2020 Travel Usman Melgar, Tricia Cartwright MD Microcytic hypochromic anemia (Primary D x) 03/04/2020 Hospital General Internal Nc dicine - Encounter 03/07/2020 03/04/2020 Travel after 03/17/2019 Family History Medical History Relation Name Comments Heart disease Brother Heart disease Father Diabetes Mother Cancer Sister pancreatic Relation Name Status Comments Brother Father Mother Sister Social History Date Tobacco Use Types Packs/Day Years Used Former Smoker Smokeless Tobacco: Never Used Comments: quit 90's Alcohol Use Drinks/Week oz/Week Comments No Sex Assigned at Date Recorded Not on file Industry Job Start Date Occupation Not on file Not on file Not on file Travel End Travel History Travel Start No recent travel history available. Last Filed Vital Signs Time Taken Vital Sign Reading 03/07/2020 7:47 AM CDT Blood Pressure 140/61 03/07/2020 7:47 AM CDT Pulse 55 03/07/2020 7:47 AM CDT Temperature 36.7 C (98.1 F) 03/07/2020 7:47 AM CDT Respiratory Rate 18 03/07/2020 7:47 AM CDT Oxygen Saturation 97% - Inhaled Oxygen - Concentration - Weight - - Height - - Body Mass Index - Plan of Treatment Health Maintenance Due Date Last Done Comments MEDICARE ANNUAL WELLNESS 05/23/2008 (YEAR 2 or FIRST YEAR if no IPPE) INFLUENZA VACCINE (#1) 2020 04/27/2019, 07/2017, 05/06/2016, Additional history exists PNEUMOCOCCAL 65+ Completed 04/29/2015, 010, 10/13/2007 LOW/MEDIUM RISK Procedures Comments Procedure Name Priority Date/Time Associated Diag nosis TRANSFUSION SERVICE 03/07/2020 REPORT - SCAN 6:03 PM CDT POCT-GLUCOSE METER Routine 03/07/2020 7:49 AM CDT CBC W/PLT COUNT & AUTO Routine 03/07/2020 DIFFERENTIAL 4:28 AM CDT CBC W/PLT COUNT & AUTO Routine 03/07/2020 DIFFERENTIAL 4:28 AM CDT BASIC METABOLIC PANEL (7) Routine 03/07/2020 4:28 AM CDT PREPARE LEUKO-REDUCED RBC Routine 03/06/2020 11:54 PM CDT TRANSFUSION SERVICE 03/06/2020 REPORT - SCAN 6:03 PM CDT POTASSIUM STAT 03/06/2020 8:18 AM CDT CBC W/PLT COUNT & AUTO Routine 03/06/2020 DIFFERENTIAL 4:25 AM CDT CBC W/PLT COUNT & AUTO Routine 03/06/2020 DIFFERENTIAL 4:25 AM CDT BASIC METABOLIC PANEL (7) Routine 03/06/2020 4:25 AM CDT TRANSFUSION SERVICE 03/05/2020 REPORT - SCAN 6:03 PM CDT CBC W/PLT COUNT & AUTO Routine 03/05/2020 DIFFERENTIAL 4:47 PM CDT CBC W/PLT COUNT & AUTO Routine 03/05/2020 DIFFERENTIAL 4:47 PM CDT BASIC METABOLIC PANEL (7) Routine 03/05/2020 4:47 PM CDT TRANSFUSE LEUKO-REDUCED Routine 03/05/2020 RED BLOOD CELLS 2:08 PM CDT REPORT OF PROCEDURE - 03/05/2020 ENDOSCOPY URL 1:59 PM CDT TISSUE EXAM AP Routine 03/05/2020 1:49 PM CDT UPPER ENDOSCOPY 03/05/2020 Melena 1:00 PM CDT TYPE AND SCREEN, Routine 03/04/2020 AUTOMATED 11:25 PM CDT SARS-COV2/RT-PCR ([facility] & STAT 03/04/2020 REF LABS) 9:51 PM CDT CBC W/PLT COUNT & AUTO Routine 03/04/2020 DIFFERENTIAL 9:49 PM CDT VITAMIN B12 AND FOLATE Routine 03/04/2020 9:49 PM CDT IRON, TIBC, % SAT. Routine 03/04/2020 (WITHOUT FERRITIN) 9:49 PM CDT FERRITIN Routine 03/04/2020 9:49 PM CDT CBC W/PLT COUNT & AUTO Routine 03/04/2020 DIFFERENTIAL 9:49 PM CDT BASIC METABOLIC PANEL (7) Routine 03/04/2020 9:49 PM CDT after 03/17/2019 Results * TRANSFUSION SERVICE REPORT - SCAN (03/07/2020 6:03 PM CDT) Only the most recent of 3 results within the time period is included. Narrative Performed At This result has an attachment that is n ot available. * POC-Glucose meter (03/07/2020 7:49 AM CDT) POC-Glucose Meter 100Comment: : TESTED AT [facility] 70 - 110 mg/d L [address] [address]: Lithographic Camera Operator/Engineering Operations Leader ID = [id number] for QUEEN BASSETT [facility] Blood Performing Organization Address City/State/[facility] Ph one Number [address] [facility] * CBC with platelet count + automated diff (03/07/2020 4:28 AM CDT) Only the most recent of 4 results within the time period is included. WBC 8.2 3.5 - 10.5 K/L [facility] RBC 3.66 (L) 3.93 - 5.22 M/L [facility] Hemoglobin 8.5 (L) 11.2 - 15.7 GM/DL [facility] Hematocrit 28.0 (L) 34.1 - 44.9 % [facility] MCV 76.5 (L) 79.4 - 94.8 fL [facility] MCH 23.2 (L) 25.6 - 32.2 pg [facility] MCHC 30.4 (L) 32.2 - 35.5 GM/DL [facility] RDW 19.3 (H) 11.7 - 14.4 % [facility] Platelets 236 150 - 450 K/CU MM [facility] MPV 11.2 9.4 - 12.3 fL [facility] nRBC 0 0 - 0 /100 WBC [facility] % Neutros 42 % [facility] % Lymphs 42 % [facility] % Monos 12 % [facility] % Eos 3 % [facility] % Baso 1 % [facility] # Neutros 3.44 1.56 - 6.13 K/L [facility] # Lymphs 3.46 1.18 - 3.74 K/L [facility] # Monos 1.02 (H) 0.24 - 0.36 K/L [facility] # Eos 0.24 0.04 - 0.36 K/L [facility] # Baso 0.05 0.01 - 0.08 K/L [facility] Immature 0 0 - 1 % [facility] Granulocytes-[facility] Specimen Blood Performing Organization Address City/State/Zipcode Ph one Number [facility] [address] [place] [address] [facility] [facility] * Basic Metabolic Panel (03/07/2020 4:28 AM CDT) Only the most recent of 4 results within the time period is included. Sodium 140 136 - 145 meq/L [facility] Potassium 4.7 3.5 - 5.1 meq/L [facility] Chloride 112 (H) 98 - 107 meq/L [facility] CO2 23 22 - 29 meq/L [facility] BUN 19 7 - 21 mg/dL [facility] Creatinine 1.14 0.57 - 1.25 mg/dL [facility] Glucose 106 (H) 70 - 105 mg/dL [facility] Calcium 8.7 8.4 - 10.2 mg/dL [facility] EGFR 46Comment: ESTIMATED GFR IS mL/min/1.73 sq m [facility] NOT ACCURATE CREATININE [facility] CLEARANCE IN PREDICTING GLOMERULAR FILTRATION RATE. ESTIMATED GFR IS NOT APPLICABLE FOR DIALYSIS PATIENTS. Specimen Blood Narrative Performed At Lithographic Camera Operator ID - DALTON W [facility] Performing Organization Address [facility] Ph one Number [place] [address] [phone] [place] [address] * Prepare Leuko-Red RBC (03/06/2020 11:54 PM CDT) CROSSMATCH COMPATIBLE SAFETRACE TX Unit ABO A Pos [facility]ET[facility] TX UNIT NUMBER [id number] [facility] [place] Status TX_TIMEINCHART [facility] [place] Blood Bank Product RED BLOOD CELLS [place] PRODUCT CODE [id number] [place] Specimen Other Performing Organization Address [facility] one Number [place] * Potassium (03/06/2020 8:18 AM CDT) Potassium 5.3 (H)Comment: Specimen 3.5 - 5.1 meq/L [facility] slightly hemolyzed [facility] Specimen Blood Narrative Performed At Lithographic Camera Operator ID - LM [facility] Performing Organization Address [facility] one [place] [address] [phone] [place] [address] * Transfuse Leuko-Red RBC (03/05/2020 2:08 PM CDT) Only the most recent of 2 results within the time period is included. * REPORT OF PROCEDURE - ENDOSCOPY URL (03/05/2020 1:59 PM CDT) Narrative Performed At This result has an attachment that is n ot available. * Tissue Exam (03/05/2020 1:49 PM CDT) Case Report Surgical Pathology [facility] Case: [id number] Authorizing Provider:Eric Barkley Collected: 03/05/2020 01:49 PM Ordering Location: [address] Received: 03/05/2020 04:10 PM Service Pathologist: Andres Stuart MD Specimen:Biopsy, Gastric, Random Bx DIAGNOSIS PART A RANDOM GASTRIC BIOPSY: [facility] ANTRAL MUCOSA WITH FOCAL [facility] ACTIVE CHRONIC GASTRITIS AND INTESTINAL METAPLASIA WITH REACTIVE CHANGES. NEGATIVE FOR DYSPLASIA OR INVASIVE CARCINOMA. WARTHIN STARRY STAIN FOR HELICOBACTER IS NEGATIVE. Signing Pathologist Direct Phone Line: [phone] CPT Code(s) 69009, [address] [facility] CLINICAL HISTORY Clinical history: Melena [facility] Procedure: Upper endoscopy [facility] SPECIMEN SOURCE Gastric antrum [facility] GROSS DESCRIPTION Part A. Received in formalin [facility] labeled with the same [facility] patient's information and "gastric random biopsy" is a 0.7 x 0.3 x 0.2 cm aggregate of brown-barnett irregular shaped fragment of soft tissue that is submitted in toto one cassette (A1). ELLIS/ew MICROSCOPIC DESCRIPTION PERFORMED. [facility] SPECIAL STUDIES The interpretation of this [facility] case included the use of [facility] immunohistochemistry or special stains. BLOCK A1- WARTHIN STARRY Control Slides Examined: In-house known positive controls were evaluated along with the test tissue. These control slides run alongside of the patients sample show appropriate staining. Internal positive and negative controls when available are evaluated Immunohistochemistry technical testing was performed at [facility], Pathology Laboratory where it was developed and its performance characteristics were determined. It has not been cleared or approved by the U.S. Food and Drug Administration. The FDA has determined that such clearance or approval is not necessary. The test is used for clinical purposes. It should not be regarded as investigational or for research. This laboratory is certified under the Clinical Laboratory Improvement Amendments of 1988 (CLIA-88) as qualified to perform high complexity clinical laboratory testing. Gross assessment was [facility] performed at Center, Department of [facility] Pathology, [address] [place] [address], Technical component was [facility] performed at [place], Department of [facility] Pathology, [address] [place] [address], Professional component [facility] was performed at [place], Department of [facility] Pathology, [address] [place] [address], Specimen Tissue Performing Organization Address [facility] Ph one Number [address] [facility] * Type and screen, automated (03/04/2020 11:25 PM CDT) ABO/RH AUTOMATED (BEAKER) A POSITIVE [facility] Ab Scrn NEGATIVE [facility] Specimen Blood Performing Organization Address [facility] Ph one Number [address] [address] [facility] * SARS-CoV2/RT-PCR (Asymptomatic ONLY) (03/04/2020 9:51 PM CDT) SARS-COV2/RT-PCR Negative Not Detected, Negative [facility] SARS-COV-2 PERFORMING LAB [facility] Specimen Other Narrative Performed At Negative result for this test determine s that SARS-CoV-2 RNA was not present in [facility] the specimen above the Limit of Detecti on (LOD).However, Negative results do [facility] not preclude SARS-CoV-2 infection and s hould not be used as the sole basis for treatment or patient management decisio ns. Negative results must be combined with clinical observations, patient his tory, and epidemiological information. A false negative result may occur if a sp ecimen is improperly collected, transported or handled.A false nega tive result should be considered if patient's recent exposures or clinical presentation indicate that COVID-19 (SARS-CoV-2) is likely and diagnostic t ests for other causes of illness are negative.Re-testing should be consi dered in cases of suspected false negatives. The limit of detection for this assay i s 800 copies/mL. This SARS CoV-2 test is a real-time RT- PCR test intended for the qualitative detection of nucleic acid from SARS-CoV -2 in a nasopharyngeal swab specimen collected from individuals suspected of COVID-19 by their healthcare provider. This test has not been Food and Drug Ad ministration (FDA) cleared or approved.This is a modified version of an approved Emergency Use Authorization (EUA) and is in the proce ss of review by the FDA. Once authorized by the FDA, the issued EUA w ill be effective until the declaration that circumstances exist justifying the authorization of the emergency use of in vitro diagnostic tests for detection an d/or diagnosis of COVID-19 is terminated under Section 564(b)(2) of the Act or t he EUA is revoked under Section 564(g) of the Act. Fact Sheet for Healthcare Providers: https://www.[employer]/sites/default/files/product/documents/Fact_Sheet_HC_Provi itha_Rhqt_CLWR-OoN-4.pdf Fact Sheet for Healthcare Patients: https://www.[employer]/sites/default/files/product/documents/Fact_Sheet_Patients _Agnx_FNCC-SfR-8.pdf Performing Laboratory: [address] [place] [address] Performing Organization Address [facility] Ph one Number [address] [facility] * Vitamin B12 and Folate (03/04/2020 9:49 PM CDT) Vitamin B12 279 213 - 816 pg/mL [facility] Folate 6.50 (L) >=7.00 ng/mL [facility] Specimen Blood Narrative Performed At Lithographic Camera Operator ID - PIAYA L [facility] Performing Organization Address [facility] Ph one Number [address] [facility] * Iron, TIBC, % sat. (without ferritin) (03/04/2020 9:49 PM CDT) Iron 19.0 (L) 40.0 - 160.0 ug/dL [facility] TIBC 423 250 - 450 ug/dL [facility] Iron % Saturation 4 (L) 20 - 55 % [facility] Specimen Blood Narrative Performed At Lithographic Camera Operator ID - DB [facility] Performing Organization Address City/[facility] Ph one Number [address] [facility] * Ferritin (03/04/2020 9:49 PM CDT) Ferritin 13.68 5.00 - 275.00 ng/mL [facility] Specimen Blood Narrative Performed At Lithographic Camera Operator ID - PIAYA L [facility] Performing Organization Address City/State/Zipcode Ph one Number [address] [facility] after 03/17/2019 Insurance Payer Benefit Subscriber ID Type Phone Address Plan / Group MEDICAID - MEDICAID MGD [facility] xxxxxxxxx Medica id CARE COMM STAR Contracted PLAN WELLCARE MEDICARE MGD WELLCARE xxxxxxxxxxx [facility] x[facility]xx MEDICARE ADV MEDICAID MEDICAID xxxxxxxxx Medicaid [facility] MEDICARE MEDICARE A xxxxxxxxxx Medicare B (Home) [place] [phone] Advance Directives For more information, please contact: [address] [phone] Date Inactivated Comments Code Status Date Activated 03/07/2020 1:49 PM Full Code 03/04/2020 6:51 PM This code status was determined by: Patient 11/19/2017 8:30 PM Full Code 11/18/2017 2:59 AM This code status was determined by: Patient 11/16/2016 5:05 PM Full Code 11/09/2016 5:40 PM This code status was determined by: Person holding P ower of Power Nut Runner Operator 11/09/2016 5:40 PM Full Code 11/04/2016 1:57 AM This code status was determined by: Patient 02/08/2013 1:58 PM All possible means of suppor t, including: cardiac massage, mechanical ventilation, and defibrillation will be used to support life. Code ONE 02/06/2013 7:57 PM Relationship Healthcare Agent Relationship Phone Name Daughter First alternate healthcare agent [phone] Lacey Nelson Natural son Second alternate healthcare agent Jose Alberto Villa
[2020-03-21] MEDS: ATORVASTATIN 40 MG TAB PO SCH (20:40)
--- NOTE | 2020-03-21 21:16 | Progress Note ---
DATE: 03/21/2020 SUBJECTIVE: No new complaints. OBJECTIVE: VITAL SIGNS: Temperature 98.1, pulse 66, respiratory rate 17, blood pressure 130/47. GENERAL: No acute distress. SKIN: No rash. LUNGS: Clear. HEART: Regular rate and rhythm. Normal S1, S2. GI: Abdomen is soft, nondistended. NEUROLOGIC: Alert and oriented x3. PSYCHIATRIC: No depression. LABORATORY DATA: White count 12.95. Hemoglobin 6.7, platelet count 259. Creatinine 1.08. ASSESSMENT AND PLAN: 1. Likely chronic blood loss anemia. Given her coronary artery disease, we will go ahead and transfuse 1 unit of packed red blood. 2. Likely a small resolving lae-MC-wjgzshyve myocardial infarction. At this time, given her anemia, we will treat medically. However, the patient will need a multi-disciplinary approach to fix her subclavian and possibly the RCA and maybe the left main down the line. 3. Iron-deficiency anemia. We will finish her iron infusion x3 doses. 4. Peptic ulcer disease. Continue proton pump inhibitor twice a day. 5. Leukocytosis, resolved. 6. Gastrointestinal and deep vein thrombosis prophylaxis. No chemical DVT prophylaxis due to anemia. 7. Disposition. Likely home tomorrow if her repeat hemoglobin responded appropriately to the 1 unit of blood. MD JERRY Fink/AMADOU /[id number]
[2020-03-22] VITALS: BP 115/41
[2020-03-22 04:00] VITALS: BP 127/46
[2020-03-22] MEDS: LEVOTHYROXINE SODIUM 50 MCG TAB PO SCH (05:24)
[2020-03-22 06:13] LABS: BASOPHILS # (AUTO) 0.1 (0.0-0.1); BASOPHILS % 0.6 % (0.0-1.0); EOSINOPHILS # (AUTO) 0.3 (0.0-0.4); EOSINOPHILS % 2.9 % (0.0-6.0); HEMATOCRIT 27.3 % (34.2-44.1); HEMOGLOBIN 8.5 g/dL (12.0-16.0); LYMPHOCYTES # (AUTO) 3.5 (1.0-3.2); LYMPHOCYTES % 32.2 % (18.0-39.1); MEAN CORPUSCULAR HEMOGLOBIN 23.9 pg (28-32); MEAN CORPUSCULAR HGB CONC 31.1 g/dL (31-35); MEAN CORPUSCULAR VOLUME 76.7 fL (81-99); MONOCYTES # (AUTO) 1.3 (0.2-0.8); MONOCYTES % 12.3 % (4.4-11.3); NEUTROPHILS # (AUTO) 5.5 (2.1-6.9); NEUTROPHILS % 51.1 % (38.7-80.0); PLATELET COUNT 240 x10e3/uL (140-360); RED BLOOD COUNT 3.56 x10e6/uL (3.6-5.1); RED CELL DISTRIBUTION WIDTH 21.2 % (11.7-14.4)
--- NOTE | 2020-03-22 07:25 | NUR ---
received pt from previous shift, pt resting in bed, no c/o chest pain at time
[2020-03-22 07:46] VITALS: BP 126/44
[2020-03-22 08:18] VITALS: BP 126/44
[2020-03-22] MEDS: LOSARTAN POTASSIUM 25 MG TAB PO SCH (09:05)
[2020-03-22] MEDS: HYDRALAZINE HCL 25 MG TAB PO SCH (09:05)
[2020-03-22] MEDS: PANTOPRAZOLE SOD 40 MG TABEC PO SCH (09:05)
[2020-03-22] MEDS: METOPROLOL SUCCINATE 50 MG TAB XL PO SCH (09:05)
[2020-03-22] MEDS: DULOXETINE HCL 30 MG DELAYED RELEASE PO SCH (09:05)
--- NOTE | 2020-03-22 09:45 | NUR ---
dr weinberg at bedside. dr weinberg examined pt, right groin drsg dry and intact. pt has no c/o chest pain at time. dr weinberg given pt vital signs from 8am. dr weinberg told pt son wanted to be called. no new orders given
[2020-03-22 11:13] VITALS: BP 130/44
[2020-03-22 15:21] VITALS: BP 136/47
[2020-03-22] MEDS ORDERED: ONDANSETRON HCL 4 MG ORAL DISINTEGRATING TAB PO PRN (15:30)
--- NOTE | 2020-03-22 22:41 | Discharge Summary ---
PRIMARY CARE DOCTOR: Dr. Ash Andrade. FINAL DIAGNOSIS: Type 2 myocardial infarction. SECONDARY DIAGNOSES: 1. Iron-deficiency anemia. 2. Peptic ulcer disease. 3. Hypertension. 4. 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 5. Hypothyroidism. ARCHIVES DIRECTOR: Dr. Huerta, Cardiology. PROCEDURES/STUDIES PERFORMED: Nuclear stress test and left heart catheterization. HISTORY: Per dictated H and P. HOSPITAL COURSE: The patient was admitted. First troponin was 0.3, second was 0.2, the last one was 0.1. This is likely due to type 2 demand HI due to anemia. The patient received 3 doses of iron infusion. The patient also got 1 unit of packed red blood cell transfusion. Her baby aspirin was held. She was continued on her Protonix 40 mg twice a day. Stress test was done, which she failed. Subsequently, left heart catheterization was done, which showed 95% subclavian supplying left internal mammary artery to the left anterior descending. The patient also has RCA and also left main disease. The patient has had bypass previously. Given her anemia, no intervention was done. The recommendation right now is continue to hold aspirin. The patient can go home once her anemia and peptic ulcer disease are stable. The patient should be referred to [facility] for a multidisciplinary approach to fix the subclavian and possibly working on the RCA and may be the left main. This was related to the primary care doctor, who will see her within a week. This was also relayed to her son, Jose Alberto over the phone. CT of the left heart catheterization was also given to the patient. The patient was seen and examined today. It took 35 minutes total to discharge this patient including updating the PCP, the son, and also discussing with the gas brazer. CONDITION ON DISCHARGE: Improved. DISCHARGE MEDICATIONS: Please see medication reconciliation form. MD JERRY Fink/AMADOU /[id number] cc: [facility]
== END 2020-03-22 17:15 | disposition home or self-care (01) | DRG 811 ==
LOC: ER 13:13 → ERHOLD 14:53 → MED/SURG3 17:20
PROVIDERS: ADMIT Internal Medicine; ATTEND Internal Medicine
PROC: 4A023N7 Measurement of Cardiac Sampling and Pressure, Left Heart, Percutaneous Approach (ICD-10-PCS; principal; 2020-03-20)
PROC: B2131ZZ Fluoroscopy of Multiple Coronary Artery Bypass Grafts using Low Osmolar Contrast (ICD-10-PCS; 2020-03-20)
PROC: B2181ZZ Fluoroscopy of Left Internal Mammary Bypass Graft using Low Osmolar Contrast (ICD-10-PCS; 2020-03-20)
PROC: B2171ZZ Fluoroscopy of Right Internal Mammary Bypass Graft using Low Osmolar Contrast (ICD-10-PCS; 2020-03-20)
DX: D50.0 Iron deficiency anemia secondary to blood loss (chronic) (principal); I21.A1 Myocardial infarction type 2; N17.9 Acute kidney failure, unspecified; E87.2 Acidosis; K21.9 Gastro-esophageal reflux disease without esophagitis; Z95.1 Presence of aortocoronary bypass graft; E03.9 Hypothyroidism, unspecified; I25.10 Atherosclerotic heart disease of native coronary artery without angina pectoris; E78.5 Hyperlipidemia, unspecified; E11.22 Type 2 diabetes mellitus with diabetic chronic kidney disease; N18.3 Chronic kidney disease, stage 3 (moderate); I12.9 Hypertensive chronic kidney disease with stage 1 through stage 4 chronic kidney disease, or unspecified chronic kidney disease; K27.9 Peptic ulcer, site unspecified, unspecified as acute or chronic, without hemorrhage or perforation; K25.9 Gastric ulcer, unspecified as acute or chronic, without hemorrhage or perforation; Z82.49 Family history of ischemic heart disease and other diseases of the circulatory system; Z83.3 Family history of diabetes mellitus; Z87.891 Personal history of nicotine dependence; E78.00 Pure hypercholesterolemia, unspecified; D72.829 Elevated white blood cell count, unspecified; Z11.59 Encounter for screening for other viral diseases
CPT/HCPCS: 36415; 71045; 78452; 80053; 80061; 81001; 82270; 82550; 82553; 82948; 83036; 83540; 84443; 84466; 84484; 85014; 85025; 85610; 85730; 86850; 86900; 86920; 93005; 93017; 93306; 93458; 93459; 96360; 99152; 99153; 99284; A9502; C1766; C1769; C1887; J1644; J1756; J2001; J2250; J3010; J7030; J7050; P9016; Q9967; U0002

== ENCOUNTER 2020-06-30 18:01 | Emergency (ER) | payer MEDICARE, OTHER ==
[~2020-06-30] VITALS: Ht 162.6 cm; Wt 72.1 kg
[~2020-06-30 18:01] MED LIST: ASPIRIN81 MG PO; CYMBALTA30 MG PO; HYDRALAZINE HCL25 MG PO; LEVOTHYROXINE50 MCG PO; LOSARTAN POTASS25 MG PO; LOVASTATIN40 MG PO; METOPROLOL SUCC50 MG PO; PROTONIX20 MG PO
--- NOTE | 2020-06-30 19:06 | Emergency Department Note ---
History of Present Illnes History of Present Illness Chief Complaint: General Medicine Complaints History of Present Illness This is a 80 year old female STATES THAT SHE WAS SENT BY [facility] FOR EVALUATION OF ABDOMINAL PAIN AND LOW HEMOGLOBIN. PATIENT RATES PAIN 9/10, DENIES DARK OR TARRY STOOLS, DENIES NAUSEA OR VOMITING. PATIENT APPEARS IN NO DISTRESS, . Historian: Patient Arrival Mode: Car Onset (how long ago): day(s) (7) Location: GENERALIZED ABD Quality: PAIN, LOW HGB Radiation: Reports non-radiation Severity: moderate Onset quality: gradual Duration (how long): day(s) (7) Timing of current episode: constant Progression: worsening Chronicity: new Context: Denies recent illness, Denies recent surgery Relieving factors: none Exacerbating factors: none Associated symptoms: Reports weakness Treatments prior to arrival: none Past Medical/Family History Physician Review I have reviewed the patient's past medical and family history. Any updates have been documented here. Past Medical History Recent Fever: No Clinical Suspicion of Infectio: No New/Unexplained Change in Ment: No Past Medical History: Hypertension, Diabetes, Hypothyroidism, CAD, Anemia, Depression, GERD, Hyperlipedemia, Chronic Kidney Disease, Osteoarthritis Other Medical History: PUD GI BLEED LFT EAR CHICKEN RANCH CARPAL TUNNEL SYNDROME Past Surgical History: CABG Other Surgery: BLADDER Social History Smoking Cessation: Never Smoker Alcohol Use: None Any Illegal Drug Use: No Physically hurt or threatened: No Family History Family history of heart diseas: Yes Review of Systems Review of Systems Constitutional: Reports no symptoms EENTM: Reports no symptoms Cardiovascular: Reports no symptoms Respiratory: Reports no symptoms Gastrointestinal: Reports as per HPI Genitourinary: Reports no symptoms Musculoskeletal: Reports no symptoms Integumentary: Reports no symptoms Neurological: Reports as per HPI Psychological: Reports no symptoms Endocrine: Reports no symptoms Hematological/Lymphatic: Reports no symptoms Physical Exam Related Data Allergies: Coded Allergies: No Known Allergies (Unverified , 06/30/20) Triage Vital Signs Vital Signs Date Time Temp Pulse Resp B/P (MAP) Pulse Ox O2 Delivery O2 Flow Rate FiO2 06/30/20 18:54 97.3 62 20 133/48 97 Room Air Vital signs reviewed: Yes Physical Exam CONSTITUTIONAL Constitutional: Present well-developed, Present well-nourished; Absent distressed HENT HENT: Present normocephalic, Present atraumatic, Present oropharynx clear/moist, Present nose normal HENT L/R: Present left ext ear normal, Present right ext ear normal EYES Eyes: Reports PERRL, Reports other (PALE CONJUNCTIVA) NECK Neck: Present ROM normal PULMONARY Pulmonary: Present effort normal, Present breath sounds normal CARDIOVASCULAR Cardiovascular: Present regular rhythm, Present heart sounds normal, Present capillary refill normal, Present normal rate GASTROINTESTINAL Abdominal: Present soft, Present bowel sounds normal, Present tender (DIFFUSE TENDERNESS BUT UPPER ABD IS WORSE) GENITOURINARY Genitourinary: Present exam deferred SKIN Skin: Present warm, Present dry MUSCULOSKELETAL Musculoskeletal: Present ROM normal NEUROLOGICAL Neurological: Present alert, Present oriented x 3, Present no gross motor or sensory deficits PSYCHOLOGICAL Psychological: Present mood/affect normal, Present judgement normal Results Laboratory Lab results reviewed: Yes Laboratory comments Laboratory Tests Test 06/30/20 21:51 White Blood Count 14.53 x10e3/uL (4.8-10.8) Red Blood Count 2.68 x10e6/uL (3.6-5.1) Hemoglobin 7.2 g/dL (12.0-16.0) Hematocrit 23.5 % (34.2-44.1) Mean Corpuscular Volume 87.7 fL (81-99) Mean Corpuscular Hemoglobin 26.9 pg (28-32) Mean Corpuscular Hemoglobin Concent 30.6 g/dL (31-35) Red Cell Distribution Width 15.0 % (11.7-14.4) Platelet Count 352 x10e3/uL (140-360) Neutrophils (%) (Auto) 50.0 % (38.7-80.0) Lymphocytes (%) (Auto) 35.4 % (18.0-39.1) Monocytes (%) (Auto) 12.0 % (4.4-11.3) Eosinophils (%) (Auto) 1.4 % (0.0-6.0) Basophils (%) (Auto) 0.6 % (0.0-1.0) Neutrophils # (Auto) 7.3 (2.1-6.9) Lymphocytes # (Auto) 5.1 (1.0-3.2) Monocytes # (Auto) 1.8 (0.2-0.8) Eosinophils # (Auto) 0.2 (0.0-0.4) Basophils # (Auto) 0.1 (0.0-0.1) Absolute Immature Granulocyte (auto 0.08 x10e3/uL (0-0.1) Prothrombin Time 14.3 seconds (11.9-14.5) Prothromb Time International Ratio 1.06 Activated Partial Thromboplast Time 25.5 seconds (23.8-35.5) Sodium Level 136 mmol/L (136-145) Potassium Level 4.1 mmol/L (3.5-5.1) Chloride Level 103 mmol/L (98-107) Carbon Dioxide Level 23 mmol/L (22-29) Anion Gap 14.1 mmol/L (8-16) Blood Urea Nitrogen 40 mg/dL (7-26) Creatinine 1.74 mg/dL (0.57-1.11) Estimat Glomerular Filtration Rate 28 ML/MIN (60-) BUN/Creatinine Ratio 23 (6-25) Glucose Level 121 mg/dL (74-118) Calcium Level 8.8 mg/dL (8.4-10.2) Total Bilirubin 0.5 mg/dL (0.2-1.2) Aspartate Amino Transf (AST/SGOT) 27 IU/L (5-34) Alanine Aminotransferase (ALT/SGPT) 12 IU/L (0-55) Alkaline Phosphatase 86 IU/L (40-150) Total Protein 6.8 g/dL (6.5-8.1) Albumin 3.0 g/dL (3.5-5.0) Globulin 3.8 g/dL (2.3-3.5) Albumin/Globulin Ratio 0.8 (0.8-2.0) Amylase Level 248 U/L (25-125) Lipase 131 U/L (8-78) Imaging Imaging results reviewed: Yes Impressions EXAM: CT Abdomen and Pelvis WITHOUT contrast INDICATION: ^abd pain, low hemoglobin, dark stools ^[id number] ^2251 ^Y COMPARISON: None. TECHNIQUE: Abdomen and pelvis were scanned utilizing a multidetector helical scanner from the lung base to the pubic symphysis without administration of IV contrast. Absence of intravenous contrast decreases sensitivity for detection of focal lesions and vascular pathology. Coronal and sagittal reformations were obtained. Routine protocol was performed. IV CONTRAST: None ORAL CONTRAST: None COMPLICATIONS: None RADIATION DOSE: Total DLP: ... 413 mGy*cm Estimated effective dose: (DLP x 0.015 x size factor) mSv CTDIvol has been reviewed. It is below the limits set by the Radiation Protocol Committee (RPC). Dose modulation, iterative reconstruction, and/or weight based adjustment of the mA/kV was utilized to reduce the radiation dose to as low as reasonably achievable. FINDINGS: LINES and TUBES: None. LOWER THORAX: Scarring in the lung bases. Surgical changes in the coronaries. Mitral and aortic valve hyperdensities. Unremarkable HEPATOBILIARY: Nodular hepatic surface contour. No focal hepatic lesions. No biliary ductal dilation. GALLBLADDER: Tiny layering hyperdensity in the gallbladder neck, likely sludge. SPLEEN: No splenomegaly. PANCREAS: No focal masses or ductal dilatation. ADRENALS: No adrenal nodules KIDNEYS/URETERS: No hydronephrosis. No cystic or solid mass lesions. Punctate left renal superior pole nonobstructive calculus. GI TRACT: No abnormal distention, wall thickening, or evidence of bowel obstruction. Colonic diverticulosis. Appendix is normal. PELVIC ORGANS/BLADDER: Hysterectomy. No adnexal masses. Urinary bladder unremarkable. Unremarkable. LYMPH NODES: No lymphadenopathy. VESSELS: Arterial calcifications. PERITONEUM / RETROPERITONEUM: No free air or fluid. BONES: Degenerative changes. Sternotomy wires. SOFT TISSUES: Right proximal medial thigh fat stranding, likely due to prior vascular access or surgery.. IMPRESSION: Moderate volume of stool in the colon is seen for constipation. The stool is radiopaque, a blood component is possible. Tiny layering hyperdensity in the gallbladder neck, likely calcific sludge. Nodular hepatic surface contour can be seen with cirrhosis. No evidence of portal hypertension. Colonic diverticulosis without diverticulitis. Punctate left renal superior pole nonobstructive calculus. Signed by: Gonsalo Shah DO on 06/30/2020 11:55 PM Dictated By: GONSALO SHAH DO [id number] Transcribed By: JESSICA on 06/30/20 [id number] COPY TO: WILLARD BARRIGA MD~ Assessment & Plan Medical Decision Making MDM PT WITH ABD PAIN AND REPORTED LOW HGB CBC, CMP, AMYLASE,LIPASE, CTA ABD, PT/PTT ORDERED TO EVAL FOR ANEMIA, DIVERTICULITIS, COLITIS, AORTIC ANEURYSM, PANCREATITIS, COAGULOPATHY PT WITH GALLBLADDER PANCREATITIS, NEEDS ADMISSION FOR FURTHER EVAL, IV ANTIBIOTICS AND SURGERY, NO BEDS AVAILABLE AT THIS FACILITY, PT WILL REQUIRE TRANSFER TO ANOTHER HOSPITAL FOR CONTINUATION OF CARE I SPOKE WITH DR BRIONES [facility], HE ACCEPTS PT FOR TRANSFER Assessment & Plan Final Impression: (1) Pancreatitis (2) Sludge in gallbladder (3) Chronic anemia Depart Disposition: TRANS TO OTHER [facility] FAC[facility] Last Vital Signs Date Time Temp Pulse Resp B/P (MAP) Pulse Ox O2 Delivery O2 Flow Rate FiO2 06/30/20 18:54 97.3 62 20 133/48 97 Room Air Home Meds Reported Medications Metoprolol Succinate (METOPROLOL SUCCINATE) 50 Mg Tab.er.24h, 50 MG PO DAILY, MG 03/18/20 Hydralazine Hcl (HYDRALAZINE HCL) 25 Mg Tab, 25 MG PO TID, TAB 03/18/20 Pantoprazole Sodium (PROTONIX) 20 Mg Tablet.dr, 40 MG PO BID, #30 TAB 03/18/20 Levothyroxine Sodium (LEVOTHYROXINE SODIUM) 50 Mcg Tablet, 50 MCG PO DAILY, #30 TAB 03/18/20 Lovastatin (LOVASTATIN) 40 Mg Tablet, 40 MG PO DAILY THERAPEUTICALLY SUBSTITUTED WITH SIMVASTATIN 20MG 03/18/20 Duloxetine Hcl (CYMBALTA) 30 Mg Capsule.dr, 60 MG PO DAILY, #30 CAP 03/18/20 Losartan Potassium (LOSARTAN POTASSIUM) 25 Mg Tablet, 50 MG PO DAILY 03/18/20 WILLARD BARRIGA MD Jun 30, 2020 19:06
--- OUTSIDE RECORDS SUMMARY | 2020-06-30 20:09 | XMS REPORT | Clinical Summary ---
Author Author EDWIN [facility] Address Unknown Phone Unavailable Care Team Providers Care Kitchen Hand Name Role Phone Ash Andrade MD PCP Allergies No Known Allergies Medications End Date [...] 0 by mouth 2 (two) times daily. Active losartan (COZAAR) 50 MG Take 50 mg by 0 tablet mouth daily. Active furosemide (LASIX) 40 MG Take 40 mg by 0 tablet mouth 2 (two) times daily. Active biotin 10,000 mcg Cap Take by 0 mouth. Active meclizine (ANTIVERT) 25 Take 25 mg by 0 MG tablet mouth 3 (three) times daily as needed. 06/06/2021 Active clopidogreL (PLAVIX) 75 Take 1 tablet 90 tablet 3 mg tablet (75 mg total) 0 by mouth daily. 03/04/2020 Discontinued simvastatin (ZOCOR) 20 MG Take 20 mg by 0 tablet mouth nightly. 03/07/2020 Discontinued (Stop Taking at Discharge) lisinopril Take 1 tablet 30 tablet 0 (PRINIVIL,ZESTRIL) 10 MG (10 mg total) 8 tablet by mouth daily Note change in dose. 03/04/2020 Discontinued atorvastatin (LIPITOR) 80 Take 1 tablet 90 tablet 0 MG tablet (80 mg total) 8 by mouth nightly Take instead of simvastatin. 03/07/2020 Discontinued (Stop Taking at Discharge) COZAAR 50 mg tablet Take 1 tablet 0 by mouth 0 every morning. Active Problems Problem Noted Date Chest pain due to CAD 06/05/2020 CAD (coronary artery disease) 06/04/2020 Stenosis of left subclavian artery 06/04/2020 H/O three vessel coronary artery bypass 06/04/2020 Microcytic hypochromic anemia 03/07/2020 Gastric ulcer 03/07/2020 Hyperkalemia 03/07/2020 GI bleed 03/04/2020 S/P CABG (coronary artery bypass graft) on 11/09/2016 11/09/2016 Coronary artery disease of [place] artery of [place] he art with stable angina 11/04/2016 pectoris [...] Encounters Care Team Description Date Type Specialty 06/05/2020 Travel Humberto Lee MD 06/04/2020 Anesthesia Event Mateo Suarez MD L CATH & CORONARY ANGIOS 06/04/2020 Surgery Cirilo Mandujano MD 06/04/2020 Anesthesia Event Mateo Suarez MD Stenosis of left subclavian artery (HCC) (Primary Dx) 06/04/2020 Hospital Cardiac Intensive C are - Encounter 06/05/2020 Lucia English MD Ahmmed, Zahra Tiwana, JEAN 03/05/2020 Anesthesia Gastroenterology Event Eric Barkley UPPER ENDOSCOPY 03/05/2020 Surgery Gastroenterology 03/05/2020 Travel Usman Melgar, Tricia Cartwright MD Microcytic hypochromic anemia (Primary D x) 03/04/2020 Hospital General Internal [place] d[place] - Encounter 03/07/2020 03/04/2020 Travel after 06/30/2019 Family History Medical History Relation Name Comments Heart disease Brother Heart disease Father Diabetes Mother Cancer Sister pancreatic Relation Name Status Comments Brother Father Mother Sister Social History Date Tobacco Use Types Packs/Day Years Used Former Smoker Smokeless Tobacco: Never Used Comments: quit 90's Drinks/Week oz/Week Comments Alcohol Use No Sex Assigned at Date Recorded Not on file Date Recorded COVID-19 Exposure Response 06/05/2020 12:12 AM CDT In the last month, have you been in contact with No / Unsure someone who was confirmed or suspected to have Coronavirus / COVID-19? Last Filed Vital Signs Reading Time Taken Comments Vital Sign 150/42 06/05/2020 5:03 PM CDT Blood Pressure 90 06/05/2020 5:03 PM CDT Pulse 37.2 C (98.9 F) 06/05/2020 8:20 AM CDT Temperature 18 06/05/2020 5:03 PM CDT Respiratory Rate 96% 06/05/2020 3:00 PM CDT Oxygen Saturation - - Inhaled Oxygen Concentration 69.8 kg (153 lb 14.4 oz) 06/05/2020 3:09 AM CDT Weight 149.9 cm (4' 11") 06/05/2020 3:09 AM CDT Height 31.08 06/05/2020 3:09 AM CDT Body Mass Index Plan of Treatment Health Maintenance Due Date Last Done Comments MEDICARE ANNUAL WELLNESS 02/07/2014 (YEAR 2 or FIRST YEAR if no IPPE) INFLUENZA VACCINE (#1) 2020 04/27/2019, 05/03/2017, 05/06/2016, Additional history exists PNEUMOCOCCAL 65+ YRS Completed 04/29/2015, 09/30/2009, 10/13/2007 Implants Device Identifier Shelf Expiration Date Model / Serial / L ot Implanted Type Area Manufactur er 05/11/2021 [id number] / [id number] / Cirilo Ballon Expandable GORE Implanted: Qty: 1 on 06/04/2020 by Mateo Suarez MD at [facility] Procedures Comments Procedure Name Priority Date/Time Associated Diag nosis PREPARE LEUKO-REDUCED RBC Routine 06/06/2020 11:54 PM CDT HEMOGLOBIN AND HEMATOCRIT STAT 06/05/2020 4:51 PM CDT (CELLAVISION MANUAL DIFF) Routine 06/05/2020 9:24 AM CDT CBC W/PLT COUNT & AUTO Routine 06/05/2020 DIFFERENTIAL 9:24 AM CDT CBC W/PLT COUNT & AUTO Routine 06/05/2020 DIFFERENTIAL 9:24 AM CDT TRANSFUSE LEUKO-REDUCED Routine 06/05/2020 RED BLOOD CELLS 7:22 AM CDT XR CHEST 1 VIEW Routine 06/05/2020 PORTABLE/BEDSIDE 4:18 AM CDT CBC (HEMOGRAM ONLY) Routine 06/05/2020 3:03 AM CDT B-TYPE NATRIURETIC FACTOR Routine 06/05/2020 (BNP) 3:03 AM CDT BASIC METABOLIC PANEL (7) Routine 06/05/2020 3:02 AM CDT APTT Routine 06/05/2020 3:02 AM CDT 2D ECHO W/ DOPPLER STAT 06/05/2020 (CW/PW/COLOR) 12:58 AM CDT POCT-ACT Routine 06/04/2020 10:38 PM CDT POCT-ACT Routine 06/04/2020 7:14 PM CDT XR CHEST 1 VIEW STAT 06/04/2020 PORTABLE/BEDSIDE 7:12 PM CDT XR CHEST 1 VIEW Routine 06/04/2020 PORTABLE/BEDSIDE 5:18 PM CDT HEMOGLOBIN AND HEMATOCRIT STAT 06/04/2020 5:05 PM CDT TYPE AND SCREEN, STAT 06/04/2020 AUTOMATED 5:00 PM CDT POCT-ACT Routine 06/04/2020 4:00 PM CDT L CATH & CORONARY ANGIOS 06/04/2020 SOB (shortne ss of breath) 2:10 PM CDT Cardiovascular arteriosclerosis Case Notes 6TOP REPORT OF PROCEDURE - 06/04/2020 ENDOSCOPY SCAN CARDIAC CATH REPORT - 06/04/2020 SCAN TRANSFUSION SERVICE 03/07/2020 REPORT - SCAN 6:03 [...] 1:49 PM CDT UPPER ENDOSCOPY 03/05/2020 Melena 1:26 PM CDT TYPE AND SCREEN, Routine 03/04/2020 AUTOMATED 11:25 PM CDT SARS-COV2/RT-PCR ([facility] & STAT 03/04/2020 REF LABS) 9:51 PM [...] (7) Routine 03/04/2020 9:49 PM CDT after 06/30/2019 Results * Prepare Leuko-Red RBC (06/06/2020 11:54 PM CDT) Only the most recent of 2 results within the time period is included. CROSSMATCH COMPATIBLE SAFETRACE TX Unit ABO A Pos SAFETRACE TX UNIT NUMBER [id number] SAFETRACE TX Status TX_TIMEINCHART SAFETRACE TX Blood Bank RED BLOOD CELLS SAFETRACE TX Product PRODUCT CODE [id number] SAFETRACE TX Specimen Other Performing Organization Address [facility] one Number SAFETRACE TX * Hemoglobin and hematocrit (06/05/2020 4:51 PM CDT) Only the most recent of 2 results within the time period is included. Hemoglobin 9.1 (L) 11.2 - 15.7 GM/DL [facility] Hematocrit 28.1 (L) 34.1 - 44.9 % [facility] Specimen Blood Narrative Performed At Receiving Inspector ID - [id number] [facility] Performing Organization Address [facility] one Number [address] [address] MED[facility] CENTER * Manual Differential (06/05/2020 9:24 AM CDT) % Neutros 61 % [facility] % Lymphs 29 % [facility] % Monos 8 % [facility] % Eos 2 % [facility] # Neutros 9.09 (H) 1.56 - 6.13 K/ul [facility] # Lymphs 4.32 (H) 1.18 - 3.74 K/ul [facility] # Monos 1.19 (H) 0.24 - 0.36 K/uL [facility] # Eos 0.30 0.04 - 0.36 K/uL [facility] Total Counted 100 [facility] WBC Morphology Normal [facility] Giant Platelet Present [facility] Large Platelet Present [facility] Polychromasia 2+ moderate [facility] Anisocytosis 1+ few [facility] Microcytes 1+ few [facility] Artifact Present [facility] Platelet Conc Adequate [facility] Specimen Blood Narrative Performed At Receiving Inspector ID - Mikey Drummondobar [facility] User comments: [facility] Slide comments: Performing Organization Address City/State/Zipcode Ph one Number [facility] [address] [place], [place] [address] [facility] * CBC with platelet count + automated diff (06/05/2020 9:24 AM CDT) Only the most recent of 5 results within the time period is included. WBC 14.9 (H) 3.5 - 10.5 K/L [facility] RBC 2.96 (L) 3.93 - 5.22 M/L [facility] Hemoglobin 8.6 (L) 11.2 - 15.7 GM/DL [facility] Hematocrit 27.5 (L) 34.1 - 44.9 % [facility] MCV 92.9 79.4 - 94.8 fL [facility] MCH 29.1 25.6 - 32.2 pg [facility] MCHC 31.3 (L) 32.2 - 35.5 GM/DL [facility] RDW 17.6 (H) 11.7 - 14.4 % [facility] Platelets 215 150 - 450 K/CU MM [facility] MPV 11.7 9.4 - 12.3 fL [facility] nRBC 1 (H) 0 - 0 /100 WBC [facility] Specimen Blood Performing Organization Address City/State/Zipcode Ph one Number [facility] [address] [place], [place] [address] [facility] * Transfuse Leuko-Red RBC (06/05/2020 7:22 AM CDT) Only the most recent of 2 results within the time period is included. * XR chest 1 view portable / bedside (06/05/2020 4:18 AM CDT) Only the most recent of 3 results within the time period is included. Specimen Narrative Performed At FINAL REPORT GE RIS RAD, CHEST, 1 VIEW, NON DEPT INDICATION: IABP COMPARISON: Prior day's exam FINDINGS: Portable frontal view of the chest. IMPRESSION: Support Lines: Interval removal of the previously seen intra-aortic balloon pump Lungs and pleura: Increased coarse inte rstitial airspace opacities which may be in part related to decreas ed lung volumes. No pleural effusion.. No pneumothorax. Heart and mediastinum: Stable contours. Stable surgical changes. Additional findings: None. Signed: Gloria Underwood MD Report Verified Date/Time: 06/05/2020 04:41:13 Procedure Note Interface, External Ris In - 06/05/2020 4:43 AM CDT FINAL REPORT RAD, CHEST, 1 VIEW, NON DEPT INDICATION: IABP COMPARISON: Prior day's exam FINDINGS: Portable frontal view of the chest. IMPRESSION: Support Lines: Interval removal of the previously seen intra-aortic balloon pump Lungs and pleura: Increased coarse interstitial airspace opacities which may be in part related to decreased lung volumes. No pleural effusion.. No pneumothorax. Heart and mediastinum: Stable contours. Stable surgical changes. Additional findings: None. Signed: Gloria Underwood MD Report Verified Date/Time: 06/05/2020 04:41:13 Performing Organization Address City/[facility] Ph one Number GE RIS * CBC (Hemogram only) (06/05/2020 3:03 AM CDT) WBC 13.2 (H) 3.5 - 10.5 K/L [facility] RBC 2.44 (L) 3.93 - 5.22 M/L [facility] Hemoglobin 6.9 (L) 11.2 - 15.7 GM/DL [facility] Hematocrit 22.0 (L) 34.1 - 44.9 % [facility] MCV 90.2 79.4 - 94.8 fL [facility] MCH 28.3 25.6 - 32.2 pg [facility] MCHC 31.4 (L) 32.2 - 35.5 GM/DL [facility] RDW 18.7 (H) 11.7 - 14.4 % [facility] Platelets 214 150 - 450 K/CU MM [facility] MPV 11.7 9.4 - 12.3 fL [facility] nRBC 0 0 - 0 /100 WBC [facility] Specimen Blood Performing Organization Address [facility] Ph one Number [address] [facility] * B-type Natriuretic Factor (BNP) (06/05/2020 3:03 AM CDT) BNP 218 (H) 0 - 100 pg/mL [facility] Specimen Blood Narrative Performed At Receiving Inspector LIZBETH - COREY Nolasco [facility] Performing Organization Address City/[facility] Ph one Number [facility] [address] [place] [address] [facility] * aPTT (06/05/2020 3:02 AM CDT) PTT 35.7 22.5 - 36.0 seconds [facility] Specimen Blood Narrative Performed At Prior to initiating heparin [facility] Performing Organization Address [facility] Ph one Number [facility] [address] [place] [address] [facility] * Basic metabolic panel (06/05/2020 3:02 AM CDT) Only the most recent of 5 results within the time period is included. Sodium 137 136 - 145 meq/L [facility] Potassium 4.3 3.5 - 5.1 meq/L [facility] Chloride 111 (H) 98 - 107 meq/L [facility] CO2 17 (L) 22 - 29 meq/L [facility] BUN 31 (H) 7 - 21 mg/dL [facility] Creatinine 1.20 0.57 - 1.25 mg/dL [facility] Glucose 193 (H) 70 - 105 mg/dL [facility] Calcium 7.8 (L) 8.4 - 10.2 mg/dL [facility] EGFR 44Comment: ESTIMATED GFR IS mL/min/1.73 sq m [facility] NOT ACCURATE CREATININE [facility] CLEARANCE IN PREDICTING [facility] GLOMERULAR FILTRATION RATE. ESTIMATED GFR IS NOT APPLICABLE FOR DIALYSIS PATIENTS. Specimen Blood Narrative Performed At Receiving Inspector ID - COREY M [facility] Performing Organization Address [facility] Ph one Number [address] [facility] * 2D Echo W/Doppler(CW/PW/Color) (06/05/2020 12:58 AM CDT) Ejection SLEH ECHO Fraction HEARTLAB [facility] Specimen Narrative Performed At Transthoracic Echocardiography Report (TTE) SLE ECH O HEARTLAB Demographics [facility] Patient Name STEPHANIE LUBIN ate of Study 06/05/2020 EMILY Gender Female Visit Number [id number] Race Unknown Room Number 6101 Number Date of 1940 Referring Physician Mateo Suarez 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 Clinical History CAD;HLD;HYPOTHYROIDISM;RENAL DISORDER;B YPASS/AORTO [id number]. Height: 60 inches Weight: 67.13 kg (148 lbs) BSA: 1.64 m^2 BMI: 28.9 kg/m^2 HR: 81 bpm BP: 159/43 mmHg Signature Findings Rhythm/BP Regular s inus rhythm during the exam. Left Ventricle The left afia tricle is chamber size (by PSLAX dime nsion) is normal (female - LVIDd 3.8-5.2cm) . LV s eptal thickness is normal. LV posterior wall thic kness is mildly increased (1.2-1.4cm) . All of the LV segments contract normally . LVEF by Mcnamara's method of disk assessment is norm al (>60%) . Norm al diastolic function. Left Atrium LA size is normal (16-34 ml/m2) . Right Ventricle The right ve ntricular chamber size and systolic func tion are within normal limits. Right Atrium RA size is probably normal based on available view s. Atrial Septum Normal inte ratrial septum by available views. Aortic Valve Mild AoV cu sp thickening. Mild -to-moderate AoV cusp calcification. The non-coronary cusp has decreased mobility. Mitral Valve Mild MV jesus flet thickening. Mild mitral regurgitation. Tricuspid Valve TV structure is normal. A tr melanie amount of tricuspid regurgitation. Jahaira mated peak systolic PA pressure is 25-30 mmHg (nor mal range) . Pulmonic Valve Normal PV st ructure and function. Aorta Aortic root size (SInus of Valsalva diameter) is norm al . Pericardium No signifi cant pericardial effusion is visualized. IVC/SVC/PA/PV/Pleural The estimated R A pressure by IVC dynamics 0-5mmHg . Chambers/Structures Left Atrium LA Volume: 40.33 ml LA Area: 15.73 cm^2 LA Vol. Index: 25 ml/m^2 Left Ventricle LVIDd: 4.2 cm LVEDV:70.91 ml LVIDs: 1.69 cm LV Septum Diastolic: 0.97 cm LV PW Diastolic: 1.42 cm LV FS: 59.8 % LVEDV Mcnamara's:75.74 ml LVESV Mcnamara's:22.27 ml LVEDVI: 46 ml/m^2 LVEF Mcnamara's: 70.6 % LVESVI: 14 ml/m^2 LVOT Diameter: 2.21 cm Right Ventricle TAPSE: 1.4 7 cm Aorta Ao Root S of Kathryn.: 3.46 cm Doppler/Quantitative Measurements Mitral Valve MV Peak E-Wave: 0.69 m/s MV Peak A-Wave: 0.89 m/s E/A Ratio: 0.78 Peak Gradient: 1.91 mmHg Deceleration Time: 206.5 msec MV Sunil. Peak: Tissue Doppler E' Septal Velocity: 0.08 m/s A' Septal Velocity: 0.11 m/s E' Lateral Velocity: 0.14 m/s A' Lateral Velocity: 0.1 m/s E/E': 5.06 Aortic Valve Peak Velocity: 1.54 m/s Mean Velocity: 0.95 m/s Peak Gradient: 9.49 mmHg Mean Gradient: 4.29 mmHg AV Area (continuity): 4.16 cm^2 AV VTI: 25.31 cm AV DVI: 1.09 LVOT Peak Velocity: 1.33 m/s Peak Gradient: 7.04 mmHg Mean Velocity: 1.03 m/s Mean Gradient: 4.56 mmHg LVOT Diameter: 2.21 cm LVOT VTI: 27.48 cm LVOT Area: 3.84 cm^2 LVOT SV:105.36 ml LVOT CO: 8.53 l/min LVOT CI: 5.2 l/min/m^2 Pulmonic Valve Peak Velocity: 1.54 m/s Peak Gradient: 9.5 mmHg Mean Velocity: 1.04 m/s Mean Gradient: 4.33 mmHg Procedure Note Interface, External Ris In - 06/05/2020 9:14 AM CDT Transthoracic Echocardiography Report (TTE) Demographics Patient Name STEPHANIE LUBIN Date of Study 06/05/2020 EMILY Gender Female Visit Number [id number] Race Unknown Room Number 6101 Number Date of 1940 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 Clinical History CAD;HLD;HYPOTHYROIDISM;RENAL DISORDER;BYPASS/AORTO [id number]. Height: 60 inches Weight: 67.13 kg (148 lbs) BSA: 1.64 m^2 BMI: 28.9 kg/m^2 HR: 81 bpm BP: 159/43 mmHg Signature Findings Rhythm/BP Regular sinus rhythm during the exam. Left Ventricle The left ventricle is chamber size (by PSLAX dimension) is normal (female - LVIDd 3.8-5.2cm) . LV septal thickness is normal. LV posterior wall thickness is mildly increased (1.2-1.4cm) . All of the LV segments contract normally . LVEF by Mcnamara's method of disk assessment is normal (>60%) . Normal diastolic function. Left Atrium LA size is normal (16-34 ml/m2) . Right Ventricle The right ventricular chamber size and systolic function are within normal limits. Right Atrium RA size is probably normal based on available views. Atrial Septum Normal interatrial septum by available views. Aortic Valve Mild AoV cusp thickening. Jcwe-hq-emjoauky AoV cusp calcification. The non-coronary cusp has decreased mobility. Mitral Valve Mild MV leaflet thickening. Mild mitral regurgitation. Tricuspid Valve TV structure is normal. A trace amount of tricuspid regurgitation. Estimated peak systolic PA pressure is 25-30 mmHg (normal range) . Pulmonic Valve Normal PV structure and function. Aorta Aortic root size (SInus of Valsalva diameter) is normal . Pericardium No significant pericardial effusion is visualized. IVC/SVC/PA/PV/Pleural The estimated RA pressure by IVC dynamics 0-5mmHg . Chambers/Structures Left Atrium LA Volume: 40.33 ml LA Area: 15.73 cm^2 LA Vol. Index: 25 ml/m^2 Left Ventricle LVIDd: 4.2 cm LVEDV:70.91 ml LVIDs: 1.69 cm LV Septum Diastolic: 0.97 cm LV PW Diastolic: 1.42 cm LV FS: 59.8 % LVEDV Mcnamara's:75.74 ml LVESV Mcnamara's:22.27 ml LVEDVI: 46 ml/m^2 LVEF Mcnamara's: 70.6 % LVESVI: 14 ml/m^2 LVOT Diameter: 2.21 cm Right Ventricle TAPSE: 1.47 cm Aorta Ao Root S of Kathryn.: 3.46 cm Doppler/Quantitative Measurements Mitral Valve MV Peak E-Wave: 0.69 m/s MV Peak A-Wave: 0.89 m/s E/A Ratio: 0.78 Peak Gradient: 1.91 mmHg Deceleration Time: 206.5 msec MV Sunil. Peak: Tissue Doppler E' Septal Velocity: 0.08 m/s A' Septal Velocity: 0.11 m/s E' Lateral Velocity: 0.14 m/s A' Lateral Velocity: 0.1 m/s E/E': 5.06 Aortic Valve Peak Velocity: 1.54 m/s Mean Velocity: 0.95 m/s Peak Gradient: 9.49 mmHg Mean Gradient: 4.29 mmHg AV Area (continuity): 4.16 cm^2 AV VTI: 25.31 cm AV DVI: 1.09 LVOT Peak Velocity: 1.33 m/s Peak Gradient: 7.04 mmHg Mean Velocity: 1.03 m/s Mean Gradient: 4.56 mmHg LVOT Diameter: 2.21 cm LVOT VTI: 27.48 cm LVOT Area: 3.84 cm^2 LVOT SV:105.36 ml LVOT CO: 8.53 l/min LVOT CI: 5.2 l/min/m^2 Pulmonic Valve Peak Velocity: 1.54 m/s Peak Gradient: 9.5 mmHg Mean Velocity: 1.04 m/s Mean Gradient: 4.33 mmHg Performing Organization Address [facility] one Number [facility] ECHO HEARTLAB MKCKESSON CPACS * POC ACTIVATED CLOTTING TIME (06/04/2020 10:38 PM CDT) Only the most recent of 3 results within the time period is included. Pathologist Katharine Activated 147 sec [facility] Clotting Time Comment: [facility] : 74-137 seconds, [facility] : TESTED AT [address], [address] : Receiving Inspector/Tax Services Manager ID = [id number] for DAVIDSON LEE Specimen Blood Performing Organization Address [facility] one Number [address] [facility] * Type and screen, automated (06/04/2020 5:00 PM CDT) Only the most recent of 2 results within the time period is included. Pathologist Katharine ABO/RH A POSITIVE [facility] Ab Scrn NEGATIVE [facility] Specimen Blood Performing Organization Address [facility] Ph one Number [address] [phone] [place] [address] * EKG-SCANNED (06/04/2020) Narrative Performed At This result has an attachment that is n ot available. Ordered by an unspecified provider. * CARDIAC CATH REPORT - SCAN (06/04/2020) Narrative Performed At This result has an attachment that is n ot available. Ordered by an unspecified provider. * TRANSFUSION SERVICE REPORT - SCAN (03/07/2020 6:03 PM CDT) Only the most recent of 3 results within the time period is included. Narrative Performed At This result has an attachment that is n ot available. * POC-Glucose meter (03/07/2020 7:49 AM CDT) POC-Glucose 100Comment: : TESTED AT [facility] 70 - 110 mg/dL [facility] Meter [address] [place] [id number]: Receiving Inspector/Tax Services Manager ID [facility] = [id number] for [facility] Specimen Blood Performing Organization Address City/[facility] Ph one Number [address] 0 [phone] * Potassium (03/06/2020 8:18 AM CDT) Potassium 5.3 (H)Comment: Specimen 3.5 - 5.1 meq/L [facility] slightly hemolyzed [facility] Specimen Blood - Entire left upper arm (body structure) Narrative Performed At Receiving Inspector ID - LM [facility] Performing Organization Address City/[facility] Ph one Number [address] 0 [phone] [address] * REPORT OF PROCEDURE - ENDOSCOPY URL (03/05/2020 1:59 PM CDT) Narrative Performed At This result has an attachment that is n ot available. * Tissue Exam (03/05/2020 1:49 PM CDT) Case Report Surgical Pathology Report [facility] Case: [id number] [facility] Authorizing Provider: Eric Barkley Collected: 03/05/2020 01:49 PM Ordering Location: [address] Received: 03/05/2020 04:10 PM Service Pathologist: Andres Stuart MD Specimen: Biopsy, Gastric, Random Bx DIAGNOSIS PART A RANDOM GASTRIC BIOPSY: [facility] Electronically ANTRAL MUCOSA WITH FOCAL [facility] signed by Jeremias londono, ACTIVE CHRONIC GASTRITIS AND [facility] Andres Mccoy MD on INTESTINAL METAPLASIA WITH 03/06/2020 at 10:37 REACTIVE CHANGES. AM NEGATIVE FOR DYSPLASIA OR INVASIVE CARCINOMA. WARTHIN STARRY STAIN FOR HELICOBACTER IS NEGATIVE. Signing Pathologist Direct Phone Line: [phone] CPT Code(s) 98225, [address] [facility] CL[facility]ICAL Clinical history: Melena [facility] HISTORY Procedure: Upper endoscopy [facility] SPECIMEN SOURCE Gastric antrum [facility] GROSS Part A. Received in formalin [facility] ST Lamberto FIORE DESCRIPTION labeled with the same [facility] patient's information and MEDICAL CENTER "gastric random biopsy" is a 0.7 x 0.3 x 0.2 cm aggregate of brown-barnett irregular shaped fragment of soft tissue that is submitted in toto one cassette (A1). ELLIS/ew MICROSCOPIC PERFORMED. [facility] DESCRIPTION [facility] SPECIAL STUDIES The interpretation of this [facility] ST ALVAREZ S case included the use of [facility] immunohistochemistry or [facility] special stains. BLOCK A1- WARTHIN STARRY Control Slides Examined: In-house known positive controls were evaluated along with the test tissue. These control slides run alongside of the patients sample show appropriate staining. Internal positive and negative controls when available are evaluated Immunohistochemistry technical testing was performed at [facility], Pathology Laboratory where it was developed and [...] perform high complexity clinical laboratory testing. [facility] assessment was Center, Department of [facility] performed at Pathology, [address] [place] [address], [place] [address], Technical [facility] 'S component was [facility] performed at Pathology, [address] [place] [id number], Professional [facility] component was [facility] performed at Pathology, [address] [place] [address], [place] [address], Specimen Tissue - Gastric biopsy sample (specimen) Performing Organization Address City/State/Zipcode Ph one Number [address] [facility] [facility]ENTER * SARS-CoV2/RT-PCR (Asymptomatic ONLY) (03/04/2020 9:51 PM CDT) SARS-COV2/RT-PC Negative Not Detected, [facility] Negative [facility] SARS-COV-2 [facility] PERFORMING LAB [facility] Specimen Other - Nasopharyngeal wall structure (body structure) Narrative Performed At Negative result for this test determine s that SARS-CoV-2 RNA was not present in [facility] the specimen above the Limit of Detecti on (LOD). However, Negative results do [facility] not preclude SARS-CoV-2 infection and s hould not be used as the sole basis for treatment or patient management decisio ns. Negative results must be combined with clinical observations, patient his tory, and epidemiological information. A false negative result may occur if a sp ecimen is improperly collected, transported or handled. A false negat sharon result should be considered if patient's recent exposures or clinical presentation indicate that COVID-19 (SARS-CoV-2) is likely and diagnostic t ests for other causes of illness are negative. Re-testing should be consid ered in cases of suspected false negatives. The [...] and Drug Ad ministration (FDA) cleared or approved. This is a modified version of an appr grecia Emergency Use Authorization (EUA) and is in the process of review by the FDA. Once authorized by the FDA, the issued EUA will be effective until the declaration that circumstances exist justifying the authorization of the suasn rgency use of in vitro diagnostic tests for detection and/or diagnosis of COVID -19 is terminated under Section 564(b)(2) of the Act or the EUA is revoked under Section 564(g) of the Act. Fact Sheet for Healthcare Providers: https://www.[employer]/sites/default/files/product/documents/Fact_Sheet_HC_Provi iqdn_Nwmy_ENSU-HrX-4.pdf Fact Sheet for Healthcare Patients: https://www.[employer]/sites/default/files/product/documents/Fact_Sheet_Patients _Dhzi_MOGF-GfE-9.pdf Performing Laboratory: [address] [place] [address] Performing Organization Address [facility] Ph one Number [place] [address] [facility] * Vitamin B12 and Folate (03/04/2020 9:49 PM CDT) Vitamin B12 279 213 - 816 pg/mL [facility] Folate 6.50 (L) >=7.00 ng/mL [facility] Specimen Blood Narrative Performed At Receiving Inspector LIZBETH - JAMES Orantes [facility] Performing Organization Address [facility] Ph one Number [address] [facility] * Iron, TIBC, % sat. (without ferritin) (03/04/2020 9:49 PM CDT) Iron 19.0 (L) 40.0 - 160.0 ug/dL [facility] TIBC 423 250 - 450 ug/dL [facility] Iron % 4 (L) 20 - 55 % [facility] Specimen Blood Narrative Performed At Receiving Inspector ID - DB [facility] Performing Organization Address City/[facility]/Zipcode Ph one Number [facility] [address] [place] [address] [facility] * Ferritin (03/04/2020 9:49 PM CDT) Ferritin 13.68 5.00 - 275.00 ng/mL [facility] Specimen Blood Narrative Performed At Receiving Inspector ID - PIAYA L [facility] Performing Organization Address City/State/Zipcode Ph one Number [facility] [address] [place] [address] [facility] after 06/30/2019 Insurance Type Payer Benefit Subscriber ID Effective Phone Address Plan / Dates Group [employer] [id number] 2018-P MEDICARE resent ADV CDC REVIEW CDC REVIEW [id number] 2020- [place] [place] [address] Medicaid Contracted MEDICAID - MEDICAID [facility] [id number] 20 15-P CARE COMM STAR resent PLAN [id number] [facility] (Home) [place] [address] Advance Directives For more information, please contact: [phone] Date Inactivated Comments Code Status Date Activated 06/05/2020 8:06 PM Full Code 06/04/2020 10:55 AM This code status was determined by: Patient 03/07/2020 1:49 PM Full Code 03/04/2020 6:51 PM This code status was determined by: Patient 11/19/2017 8:30 PM Full Code 11/18/2017 2:59 AM This code status was determined by: Patient 11/16/2016 5:05 PM Full Code 11/09/2016 5:40 PM This code status was determined by: 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
--- OUTSIDE RECORDS SUMMARY | 2020-06-30 20:09 | XMS REPORT | Continuity of Care Document ---
Author Author [facility] t Organization [facility] Address [address] [place] [id number] Phone Unavailable Care Team Providers Care Truck Jumper Name Role Phone NONSTAFF PCP Unavailable Daniela ANDERSON, Awa Attphys Rosa ANDERSON, Kg Paul Attphys Delbert ANDERSON, Cirilo Attphys AWA SUAREZ Attphys Unavailable Carson OLMEDO Attphys Unavailable Tran Oro DO Attphys Ky ANDERSON, Senia Attphys Tameka ANDERSON, Reid Myers Attphys Miguel Angel mcbride CRNA Attphys [phone] Rubia, Eric Attphys Tran ORO Attphys Unavailable ANNABEL VAZQUEZ Attphys Unavailable Moe FONSECA Attphys Unavailable AWA SUAREZ Admphys Unavailable Carson OLMEDO Admphys Unavailable SENIA FERREIRA Admphys Unavailable MARIFER ORONA Admphys Unavailable Moe FONSECA TERRY Admphys Unavailable Payers Payer Name Policy Type Policy Number Effective Date Expiration Date Nicolasa RHODESSEYCAREKELSEYCARE MEDICARE [id number] 2017-Present [id number] 2018 00:00:00 [facility] Monse gil [facility] [id number] RAJESH CALDWELL [id number] 2020 00:00:00 [facility] MEDICAID - MEDICAID MGD CARED [facility] [id number] 2014- PresentMedicaid Contracted [id number] 2015 00:00:00 [facility] [id number] 2020 00:00 :[address] [facility] Kelsey Care Medicare Advantage [id number] 2018 00:0 0:00 [facility] Problems Condition Name Condition Details Condition Category Status Onset Date Resolution Date Last Treatment Date Treating Clinician Comments Source Chest pain due to CAD Chest pain due to CAD Disease Active 00:00:00 [facility] CAD (coronary artery disease) CAD (coronary artery disease) Disease Active 2020-06-04 00:00:00 [facility] Stenosis of left subclavian artery Stenosis of left subclavian a rtery Disease Active 2020-06-04 00:00:00 [facility] H/O three vessel coronary artery bypass H/O three vessel cor onary artery bypass Disease Active 2020-06-04 00:00:00 [facility] Microcytic hypochromic anemia Microcytic hypochromic anemia Disease Active 2020-03-07 00:00:00 [facility] Gastric ulcer Gastric ulcer Disease Active 2020-03-07 00:00:00 [facility] Hyperkalemia Hyperkalemia Disease Active 2020-03-07 00:00:00 [facility] GI bleed GI bleed Disease Active 2020-03-04 00:00:00 [facility] S/P CABG (coronary artery bypass graft) on 11/09/2016 S/P CABG (coronary artery bypass graft) on 11/09/2016 Disease Active 2016-11-09 00:00:00 [facility] 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 Disease Active 2016-11-04 00:00:00 [facility] Bilateral carotid artery stenosis Bilateral carotid artery steno sis Disease Active 2016-11-04 00:00:00 [facility] CKD (chronic kidney disease) stage 3, GFR 30-59 ml/min CKD (chronic kidney disease) stage 3, GFR 30-59 ml/min Disease Active 2016-11-04 00:00:00 [facility] Essential hypertension Essential hypertension Disease Active 2016-11-04 00:00:00 [facility] H/O major depression H/O major depression Disease Active 00:00:00 [facility] Cervical spinal stenosis s/p fusion Cervical spinal stenosis s/p fusion Disease Active 2013-02-06 00:00:00 [facility] Chest pain Problem Active [facility] Peptic ulcer Problem Active [facility] Acute coronary syndrome Problem Active [facility] History of Past Illness Condition Name Condition Details Condition Category Status Onset Date Resolution Date Last Treatment Date Treating Clinician Comments Source Visual loss Visual loss Disease Resolved 2017-11-18 00:00:00 202 00:00:00 2020-03-04 18:53:12 [facility] Postoperative anemia due to acute blood loss Postopera tive anemia due to acute blood loss Disease Resolved 2016-11-11 00:00:00 2020-03-04 00:00:00 2 18:53:11 [facility] FRITZ (acute kidney injury) FRITZ (acute kidney injury) Disease Re solved 2016-11-11 00:00:00 2020-03-04 00:00:00 2020-03-04 18:52:26 [facility] Oliguria Oliguria Disease Resolved 2016-11-10 00:00:00 2020-03-04 00:00:00 2020-03-04 18:53:10 [facility] Acute pulmonary insufficiency following thoracic surge ry Acute pulmonary insufficiency following thoracic surgery Disease Resolved 2016-10 00:00:00 2020-03-04 00:00:00 2020-03-04 18:52:24 [facility] Dyslipidemia Dyslipidemia Disease Resolved 2016-11-04 00:00:00 2 00:00:00 2020-03-04 18:53:14 [facility] Allergies, Adverse Reactions, Alerts This patient has no known allergies or adverse reactions. Family History Family Member Diagnosis Comments Start Date Stop Date Source Natural brother Heart disease [facility] Natural father Heart disease [facility] Natural mother Diabetes [facility] Natural sister Cancer [facility] Social History Social Habit Start Date Stop Date Quantity Comments Source Sex Assigned At [facility] Exposure to SARS-CoV-2 (event) Not sure [facility] Tobacco use and exposure 2020-06-05 00:00:00 2020-06-05 00:00:00 Marion gil used [facility] Alcohol intake 2020-06-05 00:00:00 2020-06-05 00:00:00 Current non-drinker of alcohol (finding) [facility] Tobacco Comment 2016-03-11 00:00:00 2016-03-11 00:00:00 quit 90's [facility] Smoking Status Start Date Stop Date Source Former smoker 2020-06-05 00:00:00 2020-06-05 00:00:00 [facility] Medications Ordered Medication Name Filled Medication Name Start Date Stop Da te Current Medication? Ordering Clinician Indication Dosage Frequency Signature (SIG) Comments Components Source clopidogreL (PLAVIX) 75 mg tablet 2020-06-06 00:00:00 2020 23:59:00 Yes 75mg QD Take 1 tablet (75 mg total) by mouth misty ly. [facility] aspirin 81 MG EC tablet 2020-06-05 18:06:19 Yes 81mg QD Take 81 mg by mouth daily. [facility] HYDROcodone-acetaminophen (NORCO 5-325) 5-325 mg per tablet 2020-06-05 18:06:19 Yes 1{tbl} Take 1 tab let by mouth every 8 (eight) hours as needed for Pain . [facility] levothyroxine (SYNTHROID, LEVOTHROID) 50 MCG tablet 2019-08 18:06:19 Yes 50ug Take 50 mcg by mouth Every morning on an empty stomach. [facility] DULoxetine (CYMBALTA) 60 MG capsule 2020-06-05 18:06:19 Yes 60mg QD Take 60 mg by mouth daily. [facility] fenofibrate (TRICOR) 48 MG tablet 2020-06-05 18:06:19 Yes 48mg QD Take 48 mg by mouth daily. [facility] losartan (COZAAR) 50 MG tablet 2020-06-05 18:06:19 Yes 50mg QD Take 50 mg by mouth daily. [facility] furosemide (LASIX) 40 MG tablet 2020-06-05 18:06:19 Yes 40mg Q.5D Take 40 mg by mouth 2 (two) times daily. [facility] biotin 10,000 mcg Cap 2020-06-05 18:06:19 Yes Take by mouth. [facility] meclizine (ANTIVERT) 25 MG tablet 2020-06-05 18:06:19 Yes 25mg Take 25 mg by mouth 3 (three) times daily as needed. [facility] hydrALAZINE (APRESOLINE) 25 MG tablet 2020-03-07 00:00:00 Y es 25mg Take 1 tablet (25 mg total) by mouth every 8 (eight) hours Hold for SBP < 110 mmHg. [facility] pantoprazole (PROTONIX) 40 MG tablet 2020-03-07 00:00:00 Ye s 40mg Q.5D Take 1 tablet (40 mg total) by mouth 2 (two) times daily. [facility] simvastatin (ZOCOR) 20 MG tablet 2020-03-04 18:46:48 2020-02 00:00:00 No 20mg QD Take 20 mg by mouth nightly. [facility] COZAAR 50 mg tablet 2020-01-23 00:00:00 2020-03-07 00:00:00 No 1{tbl} QD Take 1 tablet by mouth every morning. [facility] lovastatin (MEVACOR) 40 MG tablet 2020-01-21 00:00:00 Yes 1{tbl} QD Take 1 tablet by mouth nightly. [facility] gabapentin (NEURONTIN) 300 MG capsule 2017-11-19 00:00:00 Y es 300mg QD Take 1 capsule (300 mg total) by mouth nightly. [facility] metoprolol (TOPROL-XL) 50 MG 24 hr tablet 2017-11-19 00:00:00 Yes 50mg Q.5D Take 1 tablet (50 mg total) by mouth 2 ( two) times daily Note change in dose. [facility] lisinopril (PRINIVIL,ZESTRIL) 10 MG tablet 11-19 00:00:00 2020-03-07 00:00:00 No 10mg QD Take 1 tablet (10 mg total) by mouth daily Note change in dose. [facility] atorvastatin (LIPITOR) 80 MG tablet 2017-11-19 00:00:0 0 2020-03-04 00:00:00 No 80mg QD Take 1 tablet ( 80 mg total) by mouth nightly Take instead of simvastatin. [facility] triamcinolone (KENALOG) 0.1 % topical cream 2006-11-29 00:00:00 Yes 1{application} QD Apply 1 application topicall y daily APPLY TO AFFECTED AREA(S) ONCE DAILY NEEDED FOR RASH. [facility] Duloxetine Hcl (Cymbalta) 30 Mg CAPSULE. Duloxetine Hcl (Cymbalta) 30 Mg CAPSULE. Yes 60 Daily [facility] Hydralazine Hcl Hydralazine Hcl Yes 25 Three Ti mes A Day [facility] Levothyroxine Sodium Levothyroxine Sodium Yes 50 Daily [facility] Losartan Potassium Losartan Potassium Yes 50 Da veronica [facility] Lovastatin Lovastatin Yes 40 Daily [facility] Metoprolol Succinate Metoprolol Succinate Yes 50 Daily [facility] Pantoprazole Sodium (Protonix) 20 Mg TABLET. Pantopr azole Sodium (Protonix) 20 Mg TABLET. Yes 40 Twice A Day [facility] Aspirin Aspirin 2020-03-22 00:00:00 No 81 Daily [facility] Vital Signs Vital Name Observation Time Observation Value Comments Source Systolic blood pressure 2020-06-05 17:03:00 150 mm[Hg] [facility] Diastolic blood pressure 2020-06-05 17:03:00 42 mm[Hg] [facility] Heart rate 2020-06-05 17:03:00 90 /min [facility] Respiratory rate 2020-06-05 17:03:00 18 /min [facility] Oxygen saturation in Arterial blood by Pulse oximetry 2019-08 15:00:00 96 /min [facility] Body temperature 2020-06-05 08:20:00 37.17 Mirian [facility] Body height 2020-06-05 03:09:00 149.9 cm [facility] Body weight 2020-06-05 03:09:00 69.809 kg [facility] BMI 2020-06-05 03:09:00 31.08 kg/m2 [facility] Body Temperature 2020-03-22 15:21:00 97.1 [degF] [facility] Weight 2020-03-21 00:40:00 159.19 [lb_av] [facility] BMI (Body Mass Index) 2020-03-21 00:40:00 27.3 kg/m2 [facility] Procedures Procedure Date / Time Performed Performing Clinician [facility] e PREPARE LEUKO-REDUCED RBC 2020-06-06 23:54:00 Awa Suarez [facility] HEMOGLOBIN AND HEMATOCRIT 2020-06-05 16:51:00 [facility] CBC W/PLT COUNT & AUTO DIFFERENTIAL 2020-06-05 09:24:00 Isidro Ware [facility] (CELLAVISION MANUAL DIFF) 2020-06-05 09:24:00 Isidro Campbell [facility] TRANSFUSE LEUKO-REDUCED RED BLOOD CELLS 2020-06-05 07:22:07 Awa Sandra [facility] XR CHEST 1 VIEW PORTABLE/BEDSIDE 2020-06-05 04:18:00 Shannan Isidro Hercules [facility] B-TYPE NATRIURETIC FACTOR (BNP) 2020-06-05 03:03:00 Shannan Isidro Hercules [facility] CBC (HEMOGRAM ONLY) 2020-06-05 03:03:00 Shannan Isidro Hercules [facility] APTT 2020-06-05 03:02:00 Shannan Isidro Hercules [facility] BASIC METABOLIC PANEL (7) 2020-06-05 03:02:00 Isidro Campbell Constance calderon [facility] 2D ECHO W/ DOPPLER (CW/PW/COLOR) 2020-06-05 00:58:30 Shannan Isidro [facility] POCT-ACT 2020-06-04 22:38:00 [facility] POCT-ACT 2020-06-04 19:14:00 [facility] XR CHEST 1 VIEW PORTABLE/BEDSIDE 2020-06-04 19:12:00 [facility] XR CHEST 1 VIEW PORTABLE/BEDSIDE 2020-06-04 17:18:00 Shannan Isidro [facility] HEMOGLOBIN AND HEMATOCRIT 2020-06-04 17:05:09 [facility] TYPE AND SCREEN, AUTOMATED 2020-06-04 17:00:00 [facility] POCT-ACT 2020-06-04 16:00:00 [facility] L CATH & CORONARY ANGIOS 2020-06-04 14:10:00 [facility] CARDIAC CATH REPORT - SCAN 2020-06-04 00:00:00 Provider, Default Scanning [facility] REPORT OF PROCEDURE - ENDOSCOPY SCAN 2020-06-04 00:00:00 Pro vider, Default Scanning [facility] TRANSFUSION SERVICE REPORT - SCAN 2020-03-07 18:03:06 Provid er, Default Scanning [facility] POCT-GLUCOSE METER 2020-03-07 07:49:[address] [facility] BASIC METABOLIC PANEL (7) 2020-03-07 04:28:00 [facility] CBC W/PLT COUNT & AUTO DIFFERENTIAL 2020-03-07 04:28:00 [facility] PREPARE LEUKO-REDUCED RBC 2020-03-06 23:54:00 [facility] TRANSFUSION SERVICE REPORT - SCAN 2020-03-06 18:03:12 Provid er, Default Scanning [facility] POTASSIUM 2020-03-06 08:18:00 Ramón Usman K. [facility] BASIC METABOLIC PANEL (7) 2020-03-06 04:25:00 [facility] CBC W/PLT COUNT & AUTO DIFFERENTIAL 2020-03-06 04:25:00 [facility] TRANSFUSION SERVICE REPORT - SCAN 2020-03-05 18:03:36 Provid er, Default Scanning [facility] BASIC METABOLIC PANEL (7) 2020-03-05 16:47:00 [facility] CBC W/PLT COUNT & AUTO DIFFERENTIAL 2020-03-05 16:47:00 [facility] TRANSFUSE LEUKO-REDUCED RED BLOOD CELLS 2020-03-05 14:08:55 [facility] - ENDOSCOPY URL 2020-03-05 13:59:[facility] 2020-03-05 13:49:00 [facility] 2020-03-05 13:26:00 [facility] TYPE AND SCREEN, AUTOMATED 2020-03-04 23:25:00 [facility] SARS-COV2/RT-PCR ([facility]) 2020-03-04 21:51:00 [facility] BASIC METABOLIC PANEL (7) 2020-03-04 21:49:00 [facility] FERRITIN 2020-03-04 21:49:00 [facility] IRON, TIBC, % SAT. (WITHOUT FERRITIN) 2020-03-04 21:49:00 [facility] VITAMIN B12 AND FOLATE 2020-03-04 21:49:00 [facility] CBC W/PLT COUNT & AUTO DIFFERENTIAL 2020-03-04 21:49:00 Senia Ferreira [facility] Plan of Care Planned Activity Planned Date Details Comments Source Future Scheduled Test 2020-04-22 00:00:00 INFLUENZA VACCINE (#1) [code = INFLUENZA VACCINE (#1)] [facility] Future Scheduled Test 2014-02-07 00:00:00 MEDICARE ANNUAL WE LLNESS (YEAR 2 or FIRST YEAR if no IPPE) [code = MEDICARE ANNUAL WELLNESS (YEAR 2 or FIRST YEAR if no IPPE)] [facility] Instructions Chest Pain - Chest Wall [facility] Results Test Description Test Time Test Comments Results Result Comments Source CARDIAC CATH REPORT - SCAN 2020-06-13 10:50:12 O rdered by an unspecified provider. [facility] Cent[facility] r Prepare Leuko-Red RBC 2020-06-06 23:54:00 Test Item CROSSMATCH (test code = 2264) COMPATIBLE Unit ABO (test code = 5947813) A Pos UNIT NUMBER (test code = 934-0) [id number] Status (test code = 2272034) [place]_TIMEINCHART Blood Bank Product (test code = 2263) RED BLOOD CELLS PRODUCT CODE (test code = 933-2) [id number] [facility] and [id number] 16:58:00* Test Item Value Reference Range Interpretation Comments Hemoglobin (test code = 786-4) 9.1 11.2- 15.7 GM/DL L Hematocrit (test code = 4544-3) 28.1 % 34.1-44.9 L VADIM (test code = VADIM) [employer] ID - [id number] Lab Interpretation (test code = 70820-8) Abnormal [facility] AND [id number] 16:58:00* Test Item Value Reference Range Interpretation Comments HEMOGLOBIN (BEAKER) (test code = 410) 9.1 GM/DL 11.2-15.7 L HEMATOCRIT (BEAKER) (test code = 411) 28.1 % 34.1-44.9 L [employer] ID - [id number] with platelet count + automated [id number] 13:43:00* Test Item Value Reference Range Interpretation Comments WBC (test code = 6690-2) 14.9 3.5- 10.5 K/L H RBC (test code = 789-8) 2.96 3.93- 5.22 M/L L MCHC (test code = 786-4) 31.3 32.2- 35.5 GM/DL L Hematocrit (test code = 4544-3) 27.5 % 34.1-44.9 L MCV (test code = 787-2) 92.9 fL 79.4-94.8 MCH (test code = 785-6) 29.1 pg 25.6-32.2 RDW (test code = 788-0) 17.6 % 11.7-14.4 H Platelets (test code = 777-3) 215 150- 450 K/CU MM MPV (test code = 25710-4) 11.7 fL 9.4-12.3 nRBC (test code = 413) 1 0- 0 /100 WBC H Lab Interpretation (test code = 19742-2) [facility]normal [facility] [id number] 13:43:00* Test Item Value Reference Range Interpretation Comments % Neutros (test code = 2816) 61 % % Lymphs (test code = 2817) 29 % % Monos (test code = 2818) 8 % % Eos (test code = 2819) 2 % # Neutros (test code = 2830) 9.09 K/ul 1.56-6.13 H # Lymphs (test code = 2831) 4.32 K/ul 1.18-3.74 H # Monos (test code = 2832) 1.19 K/uL 0.24-0.36 H # Eos (test code = 2834) 0.30 K/uL 0.04-0.36 Total Counted (test code = 1351) 100 WBC Morphology (test code = 487) Normal Giant Platelet (test code = 313) Present Large Platelet (test code = 2156) Present Polychromasia (test code = 478) 2+ moderate Anisocytosis (test code = 961) 1+ few Microcytes (test code = 965) 1+ few Artifact (test code = 3432) Present Platelet Conc (test code = 3438) Adequate VADIM (test code = VADIM) [employer] ID - Mikey Martin comments: Slide comments: Lab Interpretation (test code = 33477-0) Abnormal [facility] W/PLT COUNT & AUTO [id number] 13:43:00* Test Item Value Reference Range Interpretation Comments WHITE BLOOD CELL COUNT (BEAKER) (test code = 775) 14.9 K/ L 3.5- 10.5 H RED BLOOD CELL COUNT (BEAKER) (test code = 761) 2.96 M/ L 3.93-5 .22 L HEMOGLOBIN (BEAKER) (test code = 410) 8.6 GM/DL 11.2-15.7 L HEMATOCRIT (BEAKER) (test code = 411) 27.5 % 34.1-44.9 L MEAN CORPUSCULAR VOLUME (BEAKER) (test code = 753) 92.9 fL 79. 4-94.8 MEAN CORPUSCULAR HEMOGLOBIN (BEAKER) (test code = 751) 29.1 pg 25.6-32.2 MEAN CORPUSCULAR HEMOGLOBIN CONC (BEAKER) (test code = 752) 31.3 GM/DL 32.2-35.5 L RED CELL DISTRIBUTION WIDTH (BEAKER) (test code = 412) 17.6 % 11.7-14.4 H PLATELET COUNT (BEAKER) (test code = 756) 215 K/CU MM 150-450 MEAN PLATELET VOLUME (BEAKER) (test code = 754) 11.7 fL 9.4-12 .3 NUCLEATED RED BLOOD CELLS (BEAKER) (test code = 413) 1 /100 WBC 0 -0 H (CELLAVISION MANUAL DIFF)2020-06-05 13:43:00* Test Item Value Reference Range Interpretation Comments NEUTROPHILS - REL (CELLAVISION)(BEAKER) (test code = 2816) 61 % LYMPHOCYTES - REL (CELLAVISION)(BEAKER) (test code = 2817) 29 % MONOCYTES - REL (CELLAVISION)(BEAKER) (test code = 2818) 8 % EOSINOPHILS - REL (CELLAVISION)(BEAKER) (test code = 2819) 2 % NEUTROPHILS - ABS (CELLAVISION)(BEAKER) (test code = 2830) 9.09 K/ul 1.56-6.13 H LYMPHOCYTES - ABS (CELLAVISION)(BEAKER) (test code = 2831) 4.32 K/ul 1.18-3.74 H MONOCYTES - ABS (CELLAVISION)(BEAKER) (test code = 2832) 1.19 K/uL 0.24-0.36 H EOSINOPHILS - ABS (CELLAVISION)(BEAKER) (test code = 2834) 0.30 K/uL 0.04-0.36 TOTAL COUNTED (BEAKER) (test code = 1351) 100 WBC MORPHOLOGY (BEAKER) (test code = 487) Normal GIANT PLATELETS (BEAKER) (test code = 313) Present LARGE PLT(BEAKER) (test code = 2156) Present POLYCHROMATOPHILLIC RBCS(BEAKER) (test code = 478) 2+ moderate ANISOCYTOSIS (BEAKER) (test code = 961) 1+ few MICROCYTES (BEAKER) (test code = 965) 1+ few ARTIFACT (CELLAVISION)(BEAKER) (test code = 3432) Present PLATELET CONCENTRATION (CELLAVISION)(BEAKER) (test code = 3438) Lilly quate [employer] ID - Mikey NelsonUser comments: Slide comments: 2D Echo W/Doppler(CW/PW/Color)2020-06-05 09:14:14Ejection FractionSLE ECHO [facility]ART[facility] MKCKESSON CPACSInterface, External Ris In - 06/05/2020 9:14 AM CDTTransthoracic Echocardiography Report (TTE) Demographics Patient Name STEPHANIE LUBIN Date of Study 06/05/2020 EMILY Gender Female Visit Number [id number] Race Unknown Room Number 6101 Number Date of 1940 Referring Physician Awa Suarez 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 Left Ventricle The left ventricle is chamber size (by PSLAX dim ension) is normal (female - LVIDd 3.8-5.2cm) . LV septal thickness is normal. LV posterior wall thickness is mildl y increased (1.2-1.4cm) . All of the LV [...] views. Aortic Valve Mild AoV cusp thickening. [id number]-chtyfdxs AoV cusp calcification. The non-coronary cusp has [...] Velocity: 1.04 m/s Mean Gradient: 4.33 mmHg [facility], NON [id number] 04:41:00 Reason for exam:->IABPShould this be performed at the bedside?->Yes [facility] 1940 Sex: F FINAL REPORT RAD, CHEST, 1 VIEW, NON DEPT INDICATION: IABP COMPARISON: Prior day's exam FINDINGS: Portable frontal view of the chest. IMPRESSION: Support Lines: Interval removal of the previously seen intra-aortic balloon pump Lungs and ple ura: Increased coarse interstitial airspace opacities which may be in part relat ed to decreased lung volumes. No pleural effusion.. No pneumothorax.Heart and me diastinum: Stable contours. Stable surgical changes.Additional findings: None. S igned: Amaya Underwood Verified Date/Time: 06/05/2020 04:41:13 E lectronically signed by: AMAYA UNDERWOOD MD on 06/05/2020 04:41 AM XR chest 1 view portable / [id number] 04:41:00Interface, External Ris In - 06/05/2020 4:43 AM CDTFINAL REPORT RAD, CHEST, 1 VIEW, NON DEPT INDICATION: IABP COMPARISON: Prior day's exam FINDINGS: Portable frontal view of the chest. IMPRESSION: Support Lines: Interval removal of the previously seen intra-aortic balloon pump Lungs and pleura: Increased coarse interstitial airspace opacities which may be in part related to decreased lung volumes. No pleural effusion.. No pneumothorax.Heart and mediastinum: Stable contours. Stable surgical changes.Additional findings: None. Signed: Amaya Underwood Verified Date/Time: 06/05/2020 04:41:13 [facility] Center[facility] metabolic [id number] 03:42:00* Test Item Value Reference Range Interpretation Comments Sodium (test code = 2951-2) 137 meq/L 136-145 Potassium (test code = 2823-3) 4.3 meq/L 3.5-5.1 Chloride (test code = 5-0) 111 meq/L 98-107 H CO2 (test code = 2027-9) 17 meq/L 22-29 L BUN (test code = 3094-0) 31 mg/dL 7-21 H Creatinine (test code = 2160-0) 1.20 mg/dL 0.57-1.25 Glucose (test code = 2345-7) 193 mg/dL 70-105 H Calcium (test code = 00875-3) 7.8 mg/dL 8.4-10.2 L EGFR (test code = 91201-5) 44 mL/min/1.73 sq m ESTIMATED GFR IS NOT ACCURATE CREATININE CLEARANCE IN PREDICTING GLOMERULAR FILTRATION RATE. ESTIMATED GFR IS NOT APPLICABLE FOR DIALYSIS PATIENTS. VADIM (test code = VADIM) [employer] ID - COREY M Lab Interpretation (test code = 19781-1) Abnormal [facility] Center[facility] Natriuretic Factor (BNP)2020-06-05 03:42:00 * Test Item Value Reference Range Interpretation Comments BNP (test code = 77258-7) 218 pg/mL 0-100 H VADIM (test code = VADIM) [employer] ID - COREY M Lab Interpretation (test code = 60045-2) Abnormal [facility] Center[facility]TYPE NATRIURETIC FACTOR (BNP)2020-06-05 03:42:00 * Test Item Value Reference Range Interpretation Comments B-TYPE NATRIURETIC PEPTIDE (BEAKER) (test code = 700) 218 pg/mL 0-100 H [employer] ID - COREY MBASIC METABOLIC [id number] 03:42:00* Test Item Value Reference Range Interpretation Comments SODIUM (BEAKER) (test code = 381) 137 meq/L 136-145 POTASSIUM (BEAKER) (test code = 379) 4.3 meq/L 3.5-5.1 CHLORIDE (BEAKER) (test code = 382) 111 meq/L 98-107 H CO2 (BEAKER) (test code = 355) 17 meq/L 22-29 L BLOOD UREA NITROGEN (BEAKER) (test code = 354) 31 mg/dL 7-21 H CREATININE (BEAKER) (test code = 358) 1.20 mg/dL 0.57-1.25 GLUCOSE RANDOM (BEAKER) (test code = 652) 193 mg/dL 70-105 H CALCIUM (BEAKER) (test code = 697) 7.8 mg/dL 8.4-10.2 L EGFR (BEAKER) (test code = 1092) 44 mL/min/1.73 sq m ESTIMATED GFR IS NOT ACCURATE CREATININE CLEARANCE IN PREDICTING GLOMERULAR FILTRATION RATE. ESTIMATED GFR IS NOT APPLICABLE FOR DIALYSIS PATIENTS. [employer] ID - COREY [id number] 03:31:00* Test Item Value Reference Range Interpretation Comments PTT (test code = 21771-2) 35.7 22.5- 36.0 seconds VADIM (test code = VADIM) Prior to initiating heparin Lab Interpretation (test code = 82780-0) [facility]* Test Item Value Reference Range Interpretation Comments PARTIAL THROMBOPLASTIN TIME (BEAKER) (test code = 760) 35.7 seconds 22.5-36.0 Prior to initiating heparinCBC (Hemogram only)2020-06-05 03:20:00* Test Item Value Reference Range Interpretation Comments WBC (test code = 6690-2) 13.2 3.5- 10.5 K/L H RBC (test code = 789-8) 2.44 3.93- 5.22 M/L L MCHC (test code = 786-4) 31.4 32.2- 35.5 GM/DL L Hematocrit (test code = 4544-3) 22.0 % 34.1-44.9 L MCV (test code = 787-2) 90.2 fL 79.4-94.8 MCH (test code = 785-6) 28.3 pg 25.6-32.2 RDW (test code = 788-0) 18.7 % 11.7-14.4 H Platelets (test code = 777-3) 214 150- 450 K/CU MM MPV (test code = 00983-6) 11.7 fL 9.4-12.3 nRBC (test code = 413) 0 0- 0 /100 WBC Lab Interpretation (test code = 80898-1) Abnormal [facility] (HEMOGRAM ONLY)2020-06-05 03:20:00* Test Item Value Reference Range Interpretation Comments WHITE BLOOD CELL COUNT (BEAKER) (test code = 775) 13.2 K/ L 3.5- 10.5 H RED BLOOD CELL COUNT (BEAKER) (test code = 761) 2.44 M/ L 3.93-5 .22 L HEMOGLOBIN (BEAKER) (test code = 410) 6.9 GM/DL 11.2-15.7 L HEMATOCRIT (BEAKER) (test code = 411) 22.0 % 34.1-44.9 L MEAN CORPUSCULAR VOLUME (BEAKER) (test code = 753) 90.2 fL 79. 4-94.8 MEAN CORPUSCULAR HEMOGLOBIN (BEAKER) (test code = 751) 28.3 pg 25.6-32.2 MEAN CORPUSCULAR HEMOGLOBIN CONC (BEAKER) (test code = 752) 31.4 GM/DL 32.2-35.5 L RED CELL DISTRIBUTION WIDTH (BEAKER) (test code = 412) 18.7 % 11.7-14.4 H PLATELET COUNT (BEAKER) (test code = 756) 214 K/CU MM 150-450 MEAN PLATELET VOLUME (BEAKER) (test code = 754) 11.7 fL 9.4-12 .3 NUCLEATED RED BLOOD CELLS (BEAKER) (test code = 413) 0 /100 WBC 0 -0 POC ACTIVATED CLOTTING [id number] 22:57:00* Test Item Value Reference Range Interpretation Comments Activated Clotting Time (test code = 441) 147 sec : 74-137 seconds, Baseline: TESTED AT [address], [address]: [employer]/Technical Designer ID = [id number] for DAVIDSON LEE [facility] CenterPOCT-[id number] 22:57:00* Test Item Value Reference Range Interpretation Comments ACTIVATED CLOTTING TIME (BEAKER) (test code = 441) 147 sec : 74-137 seconds, Baseline: TESTED AT [facility] [address], [address]: [employer]/Technical Designer ID = [id number] for DAVIDSON LEE [id number] 19:36:00* Test Item Value Reference Range Interpretation Comments ACTIVATED CLOTTING TIME (BEAKER) (test code = 441) 191 sec : 74-137 seconds, Baseline: TESTED AT [facility] [address], [address]: [employer]/Technical Designer ID = [id number] for HEMALATHA JONES RAD, CHEST, 1 VIEW, NON [id number] 19:16:00Reason for exam:->check balloon pumpShould this be performed at the bedside?->Yes [facility] 1940 Sex: F FINAL REPORT X-ray chest AP HISTORY: Repositioning of the IABP COMPARISON: 2 hours prior Findings/impression: The cranial IABP marker is just below the aortic arch . This likely is a good position. The caudal marker is not seen. Signed: Bc Renner Verified Date/Time: 06/04/2020 19:16:30 Reading Location: [facility] [id number] Consult Reading Room Type and screen, kedmcwzge2351-28-84 18:01:00* Test Item Value Reference Range Interpretation Comments ABO/RH AUTOMATED (BEAKER) (test code = 2260) A POSITIVE Ab Scrn (test code = 890-4) NEGATIVE [facility] CenterRAD, CHEST, 1 VIEW, NON [id number] 17:54:00 Reason for exam:->IABP [facility] : 1940 Sex: F FINAL REPORT TECHNIQUE: Frontal view of the chest. INDICATION: IABP COMPARISON:11/12 DISCUSSION:Limited evaluation due to portable technique. Lines and hardwar e: Distal tip of the intra-aortic balloon pump is identified with tip projecting 3.4 cm below the superior border of the aortic arch. Cervical fusion changes are noted. Left shoulder rotator cuff repair is noted. Midline sternotomy changes and mediastinal surgical clips are noted.Heart and mediastinum: Mild cardiomegal y and central vascular congestion are similar to prior exam.Lungs and pleura: Co arsened increased interstitial markings are noted. Negative for large consolidat ion or pneumothorax. Question trace effusions.Soft tissues and bones: No acute a bnormality. IMPRESSION: 1. Distal tip of the intra-aortic balloon pump is identi fied projecting 3.4 cm below the superior border of the aortic arch.2. Coarsened prominent interstitial markings could relate to a component of fluid overload/e ruthie with small effusions. Signed: Alejo Marcus MDReport Verified Date/Time: 17:54:10 Reading Location: [facility] Diagnostic Imaging Reading Room - [facility] 1.310.12 05 :54 PM HEMOGLOBIN AND [id number] 17:17:00* Test Item Value Reference Range Interpretation Comments HEMOGLOBIN (BEAKER) (test code = 410) 7.3 GM/DL 11.2-15.7 L HEMATOCRIT (BEAKER) (test code = 411) 24.1 % 34.1-44.9 L [employer] ID - [id number] 16:18:00* Test Item Value Reference Range Interpretation Comments ACTIVATED CLOTTING TIME (BEAKER) (test code = 441) 274 sec : 74-137 seconds, Baseline: TESTED AT [address], [address]: [employer]/Technical Designer ID = [id number] for SHREYA BERNAL [id number] 00:00:00Ordered by an unspecified provider.[facility] CenterBlood leukocytes automated count (number/volume)2020-03-22 05:40:00* Test Item Value Reference Range Interpretation Comments White Blood Count (test code = 6690-2) 10.76 4.8-10.8 [facility] erythrocytes automated count (number/volume)2020-03-22 05:40:00* Test Item Value Reference Range Interpretation Comments Red Blood Count (test code = 789-8) 3.56 3.6-5.1 [facility]fieldBlood hemoglobin measurement (moles/volume)2020-03-22 05:40:00* Test Item Value Reference Range Interpretation Comments Hemoglobin (test code = 32069-0) 8.5 12.0-16.0 [facility]fieldAutomated blood hematocrit (volume fraction)2020-03-22 05:40:00* Test Item Value Reference Range Interpretation Comments Hematocrit (test code = 4544-3) 27.3 34.2-44.1 [facility]fieldAutomated erythrocyte mean corpuscular ysbhbf6437-38-55 05:40:00* Test Item Value Reference Range Interpretation Comments Mean Corpuscular Volume (test code = 787-2) 76.7 81-99 [facility]fieldAutomated erythrocyte mean corpuscular hemoglobin (mass per erythrocyte)2020-03-22 05:40:00* Test Item Value Reference Range Interpretation Comments Mean Corpuscular Hemoglobin (test code = 785-6) 23.9 28-32 [facility]fieldAutomated erythrocyte mean corpuscular hemoglobin concentration measurement (mass/volume)2020-03-22 05:40:00* Test Item Value Reference Range Interpretation Comments Mean Corpuscular Hemoglobin Concent (test code = 786-4) 31.1 31-35 [facility] MansfieldRDW SwpIu-Vpw9869-79-01 05:40:00* Test Item Value Reference Range Interpretation Comments Red Cell Distribution Width (test code = 24449-8) 21.2 11.7 -14.4 [facility]fieldAutomated blood platelet count (count/volume)2020-03-22 05:40:00* Test Item Value Reference Range Interpretation Comments Platelet Count (test code = 777-3) 240 140-360 [facility]fieldAutomated blood segmented neutrophil count as percentage of total ncsppcnruk8891-66-40 05:40:00* Test Item Value Reference Range Interpretation Comments Neutrophils (%) (Auto) (test code = 85904-3) 51.1 38.7-80.0 [facility] MansfieldAutomat blood lymphocyte count as percentage ot total zbzwczaykb3718-75-74 05:40:00* Test Item Value Reference Range Interpretation Comments Lymphocytes (%) (Auto) (test code = 736-9) 32.2 18.0-39.1 [facility]fieldAutomated blood monocyte count as percentage of total buufuenrje8432-54-92 05:40:00* Test Item Value Reference Range Interpretation Comments Monocytes (%) (Auto) (test code = 5905-5) 12.3 4.4-11.3 [facility]fieldAutomated blood eosinophil count as percentage of total utafdnuzdo5711-81-44 05:40:00* Test Item Value Reference Range Interpretation Comments Eosinophils (%) (Auto) (test code = 713-8) 2.9 0.0-6.0 [facility]fieldAutomated blood basophil count as percentage of total ehqabqiwdn4241-19-07 05:40:00* Test Item Value Reference Range Interpretation Comments Basophils (%) (Auto) (test code = 706-2) 0.6 0.0-1.0 [facility] MansfieldFluoroscopic procedure less than one hour pvsuxnqg2916-51-91 05:40:00* Test Item Value Reference Range Interpretation Comments IM GRANULOCYTES % (test code = IM GRANULOCYTES %) 0.9 0.0- 1.0 [facility]fieldAutomated blood neutrophil count 2020-03-22 05:40:00* Test Item Value Reference Range Interpretation Comments Neutrophils # (Auto) (test code = 751-8) 5.5 2.1-6.9 [facility]fieldBlood lymphocytes count (number/volume) 2020-03-22 05:40:00* Test Item Value Reference Range Interpretation Comments Lymphocytes # (Auto) (test code = 49569-6) 3.5 1.0-3.2 [facility] monocytes automated count (number/volume)2020-03-22 05:40:00* Test Item Value Reference Range Interpretation Comments Monocytes # (Auto) (test code = 742-7) 1.3 0.2-0.8 [facility] MansfieldAutomated blood eosinophil count 2020-03-22 05:40:00* Test Item Value Reference Range Interpretation Comments Eosinophils # (Auto) (test code = 711-2) 0.3 0.0-0.4 [facility]fieldAutomated blood basophil count (count/volume)2020-03-22 05:40:00* Test Item Value Reference Range Interpretation Comments Basophils # (Auto) (test code = 704-7) 0.1 0.0-0.1 [facility]fieldFluoroscopic procedure less than one hour wghdruvh5876-08-23 05:40:00* Test Item Value Reference Range Interpretation Comments Absolute Immature Granulocyte (auto (eliecer t code = Absolute Immature Granulocyte (auto) 0.10 0-0.1 [facility]fieldFluoroscopic procedure less than one hour kiylxxav1514-59-06 05:35:00* Test Item Value Reference Range Interpretation Comments Differential Total Cells Counted (test code = Differen tial Total Cells Counted) 100 [facility] blood neutrophils/100 leukocytes 2020-03-21 05:35:00* Test Item Value Reference Range Interpretation Comments Neutrophils % (Manual) (test code = 56509-6) 65 40-74 [facility] blood lymphocytes/100 leukocytes 2020-03-21 05:35:00* Test Item Value Reference Range Interpretation Comments Lymphocytes % (Manual) (test code = 737-7) 20 19-48 [facility] Resourcesual blood monocytes/100 leukocytes 2020-03-21 05:35:00* Test Item Value Reference Range Interpretation Comments Monocytes % (Manual) (test code = 744-3) 13 3.4-9.0 [facility] blood eosinophil count as percentage of total hwttdjazqw9125-81-80 05:35:00* Test Item Value Reference Range Interpretation Comments Eosinophils % (Manual) (test code = 714-6) 1 0-7 [facility] blood myelocytes/100 leukocytes 2020-03-21 05:35:00* Test Item Value Reference Range Interpretation Comments Myelocytes % (test code = 749-2) 1 0-0 [facility] platelets count by estimate (number/volume)2020-03-21 05:35:00* Test Item Value Reference Range Interpretation Comments Platelet Estimate (test code = 18382-2) ADEQUATE [facility] MansfieldPlatelet bagmbkttzn9845-92-82 05:35:00* Test Item Value Reference Range Interpretation Comments Platelet Morphology Comment (test code = 87240-4) NORMAL [facility] polychromasia detection by light bvbhewcphw4868-12-88 05:35:00* Test Item Value Reference Range Interpretation Comments Polychromasia (test code = 64020-4) FEW [facility] hypochromia detection by light ghytshnjtu1819-09-42 05:35:00* Test Item Value Reference Range Interpretation Comments Hypochromasia (test code = 728-6) SLIGHT [facility] anisocytosis detection by light mjpmmabdwx1261-48-95 05:35:00* Test Item Value Reference Range Interpretation Comments Anisocytosis (test code = 702-1) MODERATE [facility] ovalocytes detection by light gxizuzwpwk2109-67-18 05:35:00* Test Item Value Reference Range Interpretation Comments Ovalocytes (test code = 774-0) FEW [facility] arnold cells detection by light fzgreztzai5755-80-37 05:35:00* Test Item Value Reference Range Interpretation Comments Arnold Cells (test code = 7790-9) SLIGHT [facility] MansfieldRBC gaqvhxkinp0505-80-34 05:35:00* Test Item Value Reference Range Interpretation Comments Red Cell Morphology Comment (test code = 6742-1) ABNORMAL [facility] sodium measurement (moles/volume)2020-03-21 05:35:00* Test Item Value Reference Range Interpretation Comments Sodium Level (test code = 2951-2) 134 136-145 [facility]ererum or plasma potassium measurement (moles/volume)2020-03-21 05:35:00* Test Item Value Reference Range Interpretation Comments Potassium Level (test code = 2823-3) 4.2 3.5-5.1 [facility]ererum or plasma chloride measurement (moles/volume)2020-03-21 05:35:00* Test Item Value Reference Range Interpretation Comments Chloride Level (test code = 2075-0) 109 98-107 [facility]ererum or plasma carbon dioxide, total measurement (moles/volume)2020-03-21 05:35:00* Test Item Value Reference Range Interpretation Comments Carbon Dioxide Level (test code = 2028-9) 20 22-29 [facility]ererum or plasma anion mkk9059-30-15 05:35:00* Test Item Value Reference Range Interpretation Comments Anion Gap (test code = 38082-8) 9.2 8-16 [facility]ererum or plasma urea nitrogen measurement (mass/volume)2020-03-21 05:35:00* Test Item Value Reference Range Interpretation Comments Blood Urea Nitrogen (test code = 3094-0) 17 7-26 [facility]ererum or plasma creatinine measurement (mass/volume)2020-03-21 05:35:00* Test Item Value Reference Range Interpretation Comments Creatinine (test code = 2160-0) 1.08 0.57-1.11 [facility]ererum or plasma urea nitrogen/creatinine mass giugi1508-28-65 05:35:00* Test Item Value Reference Range Interpretation Comments BUN/Creatinine Ratio (test code = 3097-3) 16 6-25 [facility] MansfieldEstimated glomerular filtration rate (GFR) tymfhjqokvrhb6059-68-93 05:35:00* Test Item Value Reference Range Interpretation Comments Estimat Glomerular Filtration Rate (test code = 009525969) 49 >60 Ranges were taken from the National Kidney Disease Education Program and the [facility] Foundation literature.Reference ranges:60 or greater: Vnbzqv06-21 ( for 3 consecutive months): Chronic kidney disease 15 or less: Kidney failureTexas Health Hospital MansfieldGlucose cxbkhhcqptp0272-16-05 05:35:00* Test Item Value Reference Range Interpretation Comments Glucose Level (test code = SUX3410) 89 74-118 [facility]ererum or plasma calcium measurement (mass/volume)2020-03-21 05:35:00* Test Item Value Reference Range Interpretation Comments Calcium Level (test code = 29137-6) 8.2 8.4-10.2 [facility]ererum or plasma total bilirubin measurement (mass/volume)2020-03-21 05:35:00* Test Item Value Reference Range Interpretation Comments Total Bilirubin (test code = 1975-2) 0.7 0.2-1.2 [facility]fieldFluoroscopic procedure less than one hour zdrlulqp7325-77-91 05:35:00* Test Item Value Reference Range Interpretation Comments Aspartate Amino Transf (AST/SGOT) (test code = Aspartate Amino Transf (AST/SGOT)) 26 5-34 [facility]ererum or plasma alanine aminotransferase measurement (enzymatic activity/volume)2020-03-21 05:35:00* Test Item Value Reference Range Interpretation Comments Alanine Aminotransferase (ALT/SGPT) (test code = 1742-6) 14 0-55 [facility]ererum or plasma protein measurement (mass/volume)2020-03-21 05:35:00* Test Item Value Reference Range Interpretation Comments Total Protein (test code = 2885-2) 5.4 6.5-8.1 [facility]ererum or plasma albumin measurement (mass/volume)2020-03-21 05:35:00* Test Item Value Reference Range Interpretation Comments Albumin (test code = 1751-7) 2.3 3.5-5.0 [facility]fieldPlasma globulin measurement (mass/volume) 2020-03-21 05:35:00* Test Item Value Reference Range Interpretation Comments Globulin (test code = 23521-0) 3.1 2.3-3.5 [facility]ererum or plasma albumin/globulin mass wklll9866-96-36 05:35:00* Test Item Value Reference Range Interpretation Comments Albumin/Globulin Ratio (test code = 1759-0) 0.7 0.8-2.0 [facility]ererum or plasma alkaline phosphatase measurement (enzymatic activity/volume)2020-03-21 05:35:00* Test Item Value Reference Range Interpretation Comments Alkaline Phosphatase (test code = 6768-6) 90 40-150 [facility] MansfieldUrine color eucviqfxybetj4825-35-29 13:37:00* Test Item Value Reference Range Interpretation Comments Urine Color (test code = 5778-6) YELLOW YELLOW [facility] MansfieldUrine zrqsuyo6412-91-54 13:37:00* Test Item Value Reference Range Interpretation Comments Urine Clarity (test code = 63898-0) CLEAR CLEAR [facility] Centerpecific gravity of Urine by Test strip 2020-03-20 13:37:00* Test Item Value Reference Range Interpretation Comments Urine Specific [place] (test code = 5811-5) <=1.005 1.010-1.02 5 [facility]fieldUrine pH measurement by automated test agcao0187-14-31 13:37:00* Test Item Value Reference Range Interpretation Comments Urine pH (test code = 04836-4) 6 5-7 [facility]fieldUrine leukocyte esterase detection by wzhslljr4369-67-37 13:37:00* Test Item Value Reference Range Interpretation Comments Urine Leukocyte Esterase (test code = 5799-2) NEGATIVE NEGATIVE [facility]fieldUrine nitrite dhghfyhbw2589-36-18 13:37:00* Test Item Value Reference Range Interpretation Comments Urine Nitrite (test code = 64700-0) NEGATIVE NEGATIVE [facility] MansfieldUrine protein measurement by test strip (mass/volume)2020-03-20 13:37:00* Test Item Value Reference Range Interpretation Comments Urine Protein (test code = 5804-0) NEGATIVE NEGATIVE [facility]fieldUrine glucose loxcyzcau3870-93-27 13:37:00* Test Item Value Reference Range Interpretation Comments Urine Glucose (UA) (test code = 2349-9) NEGATIVE NEGATIVE [facility] MansfieldUrine ketones detection by automated test bwreb8690-71-13 13:37:00* Test Item Value Reference Range Interpretation Comments Urine Ketones (test code = 15569-3) NEGATIVE NEGATIVE [facility] MansfieldUrine urobilinogen measurement by test strip (mass/volume)2020-03-20 13:37:00* Test Item Value Reference Range Interpretation Comments Urine Urobilinogen (test code = 63935-1) 0.2 0.2-1 [facility]fieldUrine total bilirubin measurement (mass/volume)2020-03-20 13:37:00* Test Item Value Reference Range Interpretation Comments Urine Bilirubin (test code = 1978-6) NEGATIVE NEGATIVE [facility] MansfieldUrine erythrocytes lnscktkqg7796-33-42 13:37:00* Test Item Value Reference Range Interpretation Comments Urine Blood (test code = 66875-6) TRACE NEGATIVE [facility] MansfieldAutomated urine sediment leukocyte count by microscopy (number/high power field)2020-03-20 13:37:00* Test Item Value Reference Range Interpretation Comments Urine WBC (test code = 5821-4) NONE 0-5 [facility] MansfieldErythrocytes detection in urine sediment by light diqqtfgjwz2273-16-39 13:37:00* Test Item Value Reference Range Interpretation Comments Urine RBC (test code = 83306-7) 0-5 0-5 [facility]fieldBacteria detection in urine sediment by light qexpvnxupi9852-15-66 13:37:00* Test Item Value Reference Range Interpretation Comments Urine Bacteria (test code = 74311-7) RARE NONE [facility] MansfieldEpithelial cells detection in urine sediment by light ujjogzhvvd2564-80-94 13:37:00* Test Item Value Reference Range Interpretation Comments Urine Epithelial Cells (test code = 14421-8) FEW NONE [facility] MansfieldRenal epithelial cells detection in urine sediment by light wbqeawplnf6851-94-70 13:37:00* Test Item Value Reference Range Interpretation Comments Urine Renal Epithelial Cells (test code = 61933-5) RARE NON E [facility]2020-03-20 10:53:00 [facility] [address] [address] Patient Name: STEPHANIE LUBIN MR #: [id number] : 1940 Age/Sex: 79/F Req #: [id number] Adm Physician: MARLYN OLMEDO MD Ordered by: MARLYN OLMEDO MD Report #: [id number] Location: MED/SURG3 Room/Bed: [facility] Procedure: [id number] DX/CHEST SING LE (PORTABLE) Exam Date: 03/20/20 Exam Time: 0956 REPORT STATUS: Signed X-ray chest AP portable Comparison: None. History: Leukocytosis Findings: Status post median sternotomy and CABG. Cardiomegaly. Atherosclerotic aorta. N o pleural effusion. No pneumothorax. Prominence of vascularity in the left upp er lobe. No definite focal lung infiltrates. Status post posterior cervical spine fusion. Status post left shoulder orthopedic surgery. Impression: No significant acute cardiopulmonary disease on this exam. Signed by: Bc Renner MD on 03/20/2020 10:57 AM the SI this is Dictated By: BC KIRKLAND MD 1052 Transcr ibed By: JESSICA on 03/20/20 1056 COPY TO: MARLYN OLMEDO MD Capillary blood glucose measurement by glucometer (mass/volume)2020-03-20 06:47:00* Test Item Value Reference Range Interpretation Comments Bedside Glucose (test code = 69746-4) 107 70-120 [facility]: [id number]tes detection by light tofbgqykcj9276-07-53 05:15:00* Test Item Value Reference Range Interpretation Comments Microcytosis (test code = 741-9) [facility] [id number] 17:12:00 [facility] [address] [address] Patient Name : STEPHANIE LUBIN MR #: [id number] : 1940 Age/Sex: 79/F Adm Physician : MARLYN OLMEDO MD Admit Date : 03/17/20 Location : [place] [address] Room/Bed : [facility] REPORT: Yousif lan Stress Test DATE OF STUDY: 03/19/2020 11:30:00 TITLE OF THE TEST: Jasiel iscan nuclear cardiac stress test. TECHNICAL DETAILS: This is resting stres s protocol. For the resting images, 11 millicurie of Myoview given. After pop f an hour, proper SPECT imaging and scanning were done. For the stress part, L exiscan 0.4 mg intravenously followed by 33 millicurie of Myoview. Half an gerry r after that, SPECT imaging and scanning were done. The patient tolerated the test. There were no complications. RESULTS: A: Hemodynamics: 1. Heart rate remained stable from 86-96 per minute. 2. Blood pressure remained stable at 140/50 to 160/53. No ST-T segment changes. B: Nuclear imaging: I- Myocardial perfusion: 1. Resting images: Showed smooth distribution of the isot ope in all segments with no abnormal uptake. 2. Stress images: Showed decrea sed uptake in the anterior and lateral segments. Moderate to large size defect. II- Segmental wall motion: Normal wall motion with no segmental wall chikis on abnormality. III- Heart volumes: End-diastolic volume of 79 mL and sys tolic volume of 20 mL with ejection fraction of 74%. IMPRESSION: Very abn ormal nuclear cardiac stress test with moderate to large ischemic area in the l ateral and anterior segments with preserved left ventricular systolic function. MD LILIA Shirley/AMADOU /[id number] Signature Date Dictated By: JEREMY ZURITA MD Transcribed By: AMADOU on 03/19/20 <Electronically signed by JEREMY ZURITA MD><<Signature on File>>03/20/20 [id number] COPY TO: Stool gastrointestinal hemoglobin detection 2020-03-18 13:00:00* Test Item Value Reference Range Interpretation Comments Stool Occult Blood (test code = 2335-8) NEGATIVE NEGATIVE [facility] less than one hour qghqfqds6515-30-33 05:45:00* Test Item Value Reference Range Interpretation Comments Hemoglobin A1c Percent (test code = Hemoglobin A1c Percent) 6.0 4.0-7.0 [facility] iron measurement (mass/volume)2020-03-18 05:45:00* Test Item Value Reference Range Interpretation Comments Iron Level (test code = 2498-4) 23 50-170 [facility] iron binding capacity measurement (mass/volume)2020-03-18 05:45:00* Test Item Value Reference Range Interpretation Comments Total Iron Binding Capacity (test code = 2500-7) 392 261-4 78 [facility] iron saturation measurement (mass fraction)2020-03-18 05:45:00* Test Item Value Reference Range Interpretation Comments Percent Iron Saturation (test code = 2502-3) 6 15-50 [facility] transferrin measurement (mass/volume)2020-03-18 05:45:00* Test Item Value Reference Range Interpretation Comments Transferrin (test code = 3034-6) 280 180-382 [facility] triglyceride measurement (mass/volume)2020-03-18 05:45:00* Test Item Value Reference Range Interpretation Comments Triglycerides Level (test code = 2571-8) 75 0-149 [facility] cholesterol measurement (mass/volume)2020-03-18 05:45:00* Test Item Value Reference Range Interpretation Comments Cholesterol Level (test code = 2093-3) 125 0-199 Less than 200 mg/dL Low Lotm698 - 239 mg/dL Borderline Ankn618 m g/dl and greater High Risk [facility] cholesterol in LDL measurement (mass/volume) 2020-03-18 05:45:00* Test Item Value Reference Range Interpretation Comments LDL Cholesterol (test code = 2089-1) 75 60-130 [facility] cholesterol in HDL measurement (mass/volume)2020-03-18 05:45:00* Test Item Value Reference Range Interpretation Comments HDL Cholesterol (test code = 2085-9) 35 40-60 [facility] total cholesterol/cholesterol in HDL mass dihex4299-28-53 05:45:00* Test Item Value Reference Range Interpretation Comments Cholesterol/HDL Ratio (test code = 9830-1) 3.6 3.0-3.6 [facility] creatine kinase measurement (enzymatic activity/volume)2020-03-18 05:45:00* Test Item Value Reference Range Interpretation Comments Creatine Kinase (test code = 2157-6) 42 29-168 [facility] creatine kinase MB measurement (mass/volume)2020-03-18 05:45:00* Test Item Value Reference Range Interpretation Comments Creatine Kinase MB (test code = 91528-3) 1.40 0-5.0 [facility]field[facility] measurement by highly sensitive enzyme gwztpnfslyl2560-72-07 05:45:00* Test Item Value Reference Range Interpretation Comments Troponin I (test code = 01985-3) 0.193 0-0.300 [facility] thyrotropin measurement by detection limit <= 0.005 miu/l (units/volume)2020-03-18 05:45:00* Test Item Value Reference Range Interpretation Comments Thyroid Stimulating Hormone (TSH) (test code = 64336-1) 3.444 0.350-4.940 [facility]fieldFluor[facility] procedure less than one hour pvvmuraq5474-76-48 15:48:00* Test Item Value Reference Range Interpretation Comments Coronavirus (PCR) (test code = Coronavirus (PCR)) NOT DETECTED NOTD ETECTED Filtr8 Aptima SARS-CoV-2 assay is a nucleic amplification test intended for the qualitative detection of RNA from SARS-CoV-2 from nasopharyngeal ([employer]) specimens. It is used under Emergency Use Authorization (EUA) by FDA.A positive result is indicative of the presence of SARS-CoV-2 RNA. Clinical correlation with patient history and other diagnostic information is necessary to determine patient infe ction status.A negative (Not Detected) result does not preclude SARS-CoV-2 infec tion. Clinical Correlation with patient history and other diagnostic information should be used in patient management decisions.Invalid: Unable to generate a va lid result on this specimen. Please submit a new specimen for reprat testing oc clinically indicated.Tesing performed by:[facility] [address] [place] [address] [id number], Diomedes Beauchamp MD, PhD [facility]field[facility] (PORTABLE)2020-03-17 13:36:[address] [place] [address] Patient Name: STEPHANIE LUBIN MR #: [id number] : 1940 Age/Sex: 79/F Req #: [id number] Adm Physician: MARLYN OLMEDO MD Ordered by: JESSICA HERRING MD Report #: [id number] Location: MED/SURG3 Room/Bed: [facility] Procedure: [id number] DX/CHEST SING LE (PORTABLE) Exam Date: 03/17/20 Exam Time: 1300 REPORT STATUS: Signed EXAMINATION: CHEST SINGLE (PORTABLE) INDICATION: Chest pain COMPARISON: None FINDINGS: LINES/TUBES:EKG leads overlie the chest. LUNGS:The lungs are moderately inflated. There is perihilar fullness and indistinctness of the pulmonary vasculature. PLEURA:No pleural effusion or pneumothorax. MEDIASTINUM:The cardiomediastinal silhouette appears normal in size and sha pe. Atherosclerotic calcifications of the thoracic aorta. Postoperative findin gs of prior CABG. BONES/SOFT TISSUES:No acute osseous injury. Sternotomy wires in place. ABDOMEN:No free air under the diaphragm. IMPRESSION : Central pulmonary vascular congestion. No focal consolidation or jamal airs pace edema. Signed by: Howard Cardenas MD on 03/17/2020 1:38 PM Dictate d By: HOWARD CARDENAS MD 37 T ranscribed By: JESSICA on 03/17/201337 COPY TO: JESSICA HERRING MD Prothrombin time (PT) in platelet poor plasma by coagulation tnwwc7945-27-42 13:26:00* Test Item Value Reference Range Interpretation Comments Prothrombin Time (test code = 5902-2) 14.2 11.9-14.5 [facility]field[facility] in Platelet poor plasma by Coagulation fstbi5988-47-35 13:26:00* Test Item Value Reference Range Interpretation Comments Prothromb Time International Ratio (test code = 6301-6) 1.05 Oral Anticoagulant Therapy INR Values:1. Low Intensity Therapy 1.5 - 2.02 . Moderate Intensity Therapy 2.0 - 3.03. High Intensity Therapy(1) 2.5 - 3. 54. High Intensity Therapy(2) 3.0 - 4.05. Panic Value INR > 5.0 [facility]fieldActivated partial thromboplastin time (aPTT) in platelet poor plasma by coagulation mlysy1042-74-42 13:26:00* Test Item Value Reference Range Interpretation Comments Activated Partial Thromboplast Time (test code = 11550-0) 33.2 23.8-35.5 [facility]fieldPO-Glucose dphbx9576-63-54 08:06:00* Test Item Value Reference Range Interpretation Comments POC-Glucose Meter (test code = 1538) 100 mg/dL 70-110 : TESTED AT [address], [address]: [employer]/Technical Designer ID = [id number] for [facility] Lab Interpretation (test code = 26600-5) Normal [facility]-GLUCOSE TGGCX9703-57-57 08:06:00* Test Item Value Reference Range Interpretation Comments POC-GLUCOSE METER (BEAKER) (test code = 1538) 100 mg/dL 70-110 : TESTED AT [address], [address]: [employer]/Technical Designer ID = [id number] for [employer] METABOLIC [id number] 05:20:00* Test Item Value Reference Range Interpretation Comments SODIUM (BEAKER) (test code = 381) 140 meq/L 136-145 POTASSIUM (BEAKER) (test code = 379) 4.7 meq/L 3.5-5.1 CHLORIDE (BEAKER) (test code = 382) 112 meq/L 98-107 H CO2 (BEAKER) (test code = 355) 23 meq/L 22-29 BLOOD UREA NITROGEN (BEAKER) (test code = 354) 19 mg/dL 7-21 CREATININE (BEAKER) (test code = 358) 1.14 mg/dL 0.57-1.25 GLUCOSE RANDOM (BEAKER) (test code = 652) 106 mg/dL 70-105 H CALCIUM (BEAKER) (test code = 697) 8.7 mg/dL 8.4-10.2 EGFR (BEAKER) (test code = 1092) 46 mL/min/1.73 sq m ESTIMATED GFR IS NOT ACCURATE CREATININE CLEARANCE IN PREDICTING GLOMERULAR FILTRATION RATE. ESTIMATED GFR IS NOT APPLICABLE FOR DIALYSIS PATIENTS. [employer] ID - [place] WCBC W/PLT COUNT & AUTO TQTNFTYPIVXO4265-18-02 05:17:00* Test Item Value Reference Range Interpretation Comments WHITE BLOOD CELL COUNT (BEAKER) (test code = 775) 8.2 K/ L 3.5- 10.5 RED BLOOD CELL COUNT (BEAKER) (test code = 761) 3.66 M/ L 3.93-5 .22 L HEMOGLOBIN (BEAKER) (test code = 410) 8.5 GM/DL 11.2-15.7 L HEMATOCRIT (BEAKER) (test code = 411) 28.0 % 34.1-44.9 L MEAN CORPUSCULAR VOLUME (BEAKER) (test code = 753) 76.5 fL 79. 4-94.8 L MEAN CORPUSCULAR HEMOGLOBIN (BEAKER) (test code = 751) 23.2 pg 25.6-32.2 L MEAN CORPUSCULAR HEMOGLOBIN CONC (BEAKER) (test code = 752) 30.4 GM/DL 32.2-35.5 L RED CELL DISTRIBUTION WIDTH (BEAKER) (test code = 412) 19.3 % 11.7-14.4 H PLATELET COUNT (BEAKER) (test code = 756) 236 K/CU MM 150-450 MEAN PLATELET VOLUME (BEAKER) (test code = 754) 11.2 fL 9.4-12 .3 NUCLEATED RED BLOOD CELLS (BEAKER) (test code = 413) 0 /100 WBC 0 -0 NEUTROPHILS RELATIVE PERCENT (BEAKER) (test code = 429) 42 % LYMPHOCYTES RELATIVE PERCENT (BEAKER) (test code = 430) 42 % MONOCYTES RELATIVE PERCENT (BEAKER) (test code = 431) 12 % EOSINOPHILS RELATIVE PERCENT (BEAKER) (test code = 432) 3 % BASOPHILS RELATIVE PERCENT (BEAKER) (test code = 437) 1 % NEUTROPHILS ABSOLUTE COUNT (BEAKER) (test code = 670) 3.44 K/ L 1.56-6.13 LYMPHOCYTES ABSOLUTE COUNT (BEAKER) (test code = 414) 3.46 K/ L 1.18-3.74 MONOCYTES ABSOLUTE COUNT (BEAKER) (test code = 415) 1.02 K/ L 0. 24-0.36 H EOSINOPHILS ABSOLUTE COUNT (BEAKER) (test code = 416) 0.24 K/ L 0.04-0.36 BASOPHILS ABSOLUTE COUNT (BEAKER) (test code = 417) 0.05 K/ L 0. 01-0.08 IMMATURE GRANULOCYTES-RELATIVE PERCENT (BEAKER) (test code = 2801) 0 % 0-1 Tissue Xysu6909-80-75 10:37:00* Test Item Value Reference Range Interpretation Comments Case Report (test code = 104) Surgical Pathology Repor t Case: [id number] Authorizing Provider: Mireya Barkleyil Collected: 03/05/2020 01:49 PM Ordering Location: [address] Received: 03/05/2020 04:10 PM Service Pathologist: Andres Stuart MD Specimen: Biopsy, Gastric, Random Bx DIAGNOSIS (test code = 3220) d5bkeXCcSDMui9jrLRVpfJUxDaKdXpLrXlAiThbqjMGqMZhbzlWzFRqqe2MaH4GqTbUcAPvqewKsINZp YfynatacBBUfYRL7qhKsGDWhAQexAWDeWOftEf3lxJMwuTywZlHvXVOyg3jopgQTdahqsCy4z5crJKGk CpL8xMChAGelG7slmaFdpWDsGTOePSn1fN08IQMysU 8pgVGuCHakttUvQuT7FQwbRRAgOfO9ZVWsjHVuKZYdO8frBPCwNPcgUKRtMTxhsRDmCDW9qPken3L6vL IdmHMmxCfdAmZzCnTeULJZk5TmOFu7xEehK0VxMUIkYrS0kHQpNKZcYVhgTOPiFWPcceP3dX94MObfaf W2uAUeh2Tel05mw992tH8tgEDjCOR9YPPaERZyrWAh MMNdQFK1HREixNQgG9r5QlImcBHuI6T9WhNaxNGoV9W2CqRysDBgD2K8StCszJWrBIXrdJIuKp4mfPVm mAAeuy8mbi66NUG1c7ExjEvoNYA1EFL0PqGwLu0keBCxOVAxQJ3iUwOkeBMsMNJgfe19lZiuPRaldoGv eB0vFsWdUKZhlKWhGYMaNH5olQDgIIVxkX7kjnnlRG AwVmLduuzhDMXwiRbbqmQwIm2kpEmxTSD6SMbbT5mvfL0eHvO3NZkwX6pwdJ1oABm7VRdqgVD8WUQkfL 2pZD1okjamr0bbTiRsJE6qxfnxh9tmPuLhEL0zrce5f8gjMbRpGJ8evjrgk1hnKiJrBDdsUBOfmnxjBE Ato9TnrzfiUIMmu6ZzO4ZpjEjsQ81wnNogU03zQOXq hEjcaM6ypPmwsM4gAtGfPlHnPRyvsKshfOBqkpmcMWnuxfPsETphymzfDFRiXXrxD3spCpVmPHYcnEvw TNaxt9UzYWEbNEBbBaAuOUGLWKXCBZPUUzXXMYXMHORIOksQFDODP0YSDBkxiEPjSTFGDOGOJWFXNWCW T5PeV0rEFQPOB8HRGNZOG7GBOkXqR9mFW20RExWAOS XTGnqPUPBcKX6DDAcGELWLRSqZXYleXTWDPSOTBJEGTPHXZWKVSRAPJMDWNMFJLZRDYP3QSUUcCWTubl PWXLdSTWgCXSSIL0XuCXnFTRbRC9nIBL8TSRsRRuERTMTTOAWQZrSHQd3SBQ6qaGDfGRyTHgNIZV8qJ4 ZTCyLUYJFTFPoBYYFMVqGKMUvPN51DNFQCNJGwUUVp UtQQDJGSNbDqXBYhoi19NFF4IoKtp3P0WPP2QAQwVHMum3kaVLCxoJHfZpAiWyDwVmCxKgpumJUmXHFj CoZiz5rdf208uPVgt3ulCRWhShK5kVRxGMBtqMQmU999WLOvOHoib9xtc6NcMWZvfSAir6D4WULLzmzb aPw0qCdrK70ar5A0FjgwE2hvWMJcVJUrE4DqFV1dBL DjGyh2UTR0LAB4YERnOIJdF9ReXK9hCLKpaWPjHYe6j3bgaJyhBFBpZON5u1uyJOhulnUkPN7afi7teZ y5y7gxznGrFASgBYCzbNIFKMOqS6JapMdiIi8kdEa7jUijEfeiNXZ5Pyq0ZM9gqi59swy1xIqlOOYnzw peJmA8TUpbIROpohjqRQf4AIaqZXHgxQF2WSCywYVb M8PwCNXyRW2sucx7DXE4WPbyJNMbMtH9SBMknLDeRIHpsWdaPXqxt234ZRU0LuBfJS1uK0Kwv8W3lK5c iKTcJRJehUTxPwIwBXDvfz3jwHXyPZyyu4ZpQKC6meQ1sWVhvZSsQCKqSvA9VAtnFK8wjg14AXAkVTR4 bp7zcGBtgCpqcsJoeQTzHUziY7CwFHGhf203HCBwF7 MaXJGjr5K0gqOzAvQmVGNglZA1igX8EMImIU5oypxgd5zkMNyePZwkSTWpvaL7muA8KGXhlUTrQ4BtkE 6mRQNkTG3rtxqjc7zkEPW4GYwnSCVrDVJ2AhFqSVZrw9Hmoyp1YsIzp4ShzGWrYPkoK26cx768SOCamy MyA7lxmNHckgfhlDKcjfdsDBtgybY0FFRxFXfuxeey EZUiFCkgY8dqHxLvPLWuwUcqIPqux5IdKPMxKKWvSxVdrNYvAIGeFxw1PJZznFQgKDYvMlWgG4nthlyd BpVSCYYgh5fgE3deuSGEpKJhI7GkXBpgyrKsEMgnNHlaYXCuNFM3BQ01RMoeYPUicu38 CPT Code(s) (test code = 3357) p3rzlTCuXCSbbUTmVmGjCTDnSLYnb2geWLOqbQTrPgVsWdEfGjEgVbbckVDsNVXjQmDjw7qpp115hQBs u2fhFBNnSmP2dHBjVLWoeAZcM886f4acf0uzikAtiAM2PKAaYHO3UCuvsvYzzkM1YPfayOTaDcY1RYor iiSdIUsbkdZixcXkRzx8BQWpZ261DFV5nBitu7ttLV Y8FJPnNRHxOlKyPk6idEXqU848CHRuQASXHODwnXl9UVAlnbZgkgQreOOWw847P250r4ffVSOmxaKbsA tOtwqhe4upP943OKCdpYGkhkQvGuXmEXVdzOJurAB1KBRzVO5vhppuEjCcQE4yiliaYeDeVG5qvod1Ne VdEK3fljpfWjEkCJjqNSXmcelzUXExh0KxzacfKL0j L4Twz2C0pH3fsTZqQFZthEHgDgIxMZPvrx3paZMmLZwgb6IaJIB4vlM8eVCfqKHdGYMzIH34Jzscq0Ad BipbRPZ5IFDlnwAzd9Rsu2vgOjMgzbJwV2ocX5ZeWSNuUFSdUHOqAqJtfeEka8Pog6RqiEBnzGt4i4qt IPZyYTMcjUsin1vsORR9DZUiN6N3cLBox8iqFMhvAA PywEB3kwpuCWtrGEBxknJ6wvpgZZjwURSmxGA5fqanINqjOCWpBkJ5wfskOZabURRbJWJ5FFebm316NV R1DHhyBndoZFghEZBsfwHjxsBluSipEKCyTYPsHSdyAZKxCEfkKZVhJAFsLrOdxFrdeLzupI0nLsAfGd EyKCodIZ9tIWLuY2kbsKJnSCPdJUPcY8zlNgWcnE3wuWpkXOzwkjScSHk2RyO0ZVF7TTAyHmpgMTI3 CLINICAL HISTORY (test code = 3356) r1djlAYjRGXzaERjGyLpJIRmXSVzz5hdSASlfZJsJiHzObBrBoJvRjhatFFmPGKkFoPdk6euu864hYPq y1lgULDwWkP0nWXuNWZqwGDuU079k8npv7bawvVvkLP2RQQjDWU8WVqrmxFbumP6WYdsgOSgQbB8ZYca xkXlRLlicxUwnlKnIas3EQFjS666JNJ6pEehe0ndDL N2VSGuMYOcZeQxEm1moSYiH353ZFAbUOIOLKQndZv5QVKxvrFvcoShnJHMi461I701k8bfFFPfupDkdF cZihmal9yrI456ZUGvnWAqurVpRfHrPKGhaHTquHB0PVVvFG9cuszgNoXwCJ0vjejfXrPnEC5rolz6Zo HxNO0wthtbSgOzLIjtAQHomckxBTDqq3DxxhhnZV2t P6Npf1O9uP3gzPXaESIqrYCxAzUmBHDbwa3laWGoQLczk7OhPNO2zoM3cMGghFVmHMSsAG76Igjtg6Dk RtatXHX1WCPetlWhe6Zkd1gkSeUcxmDeP0jlQ6YuHBTrAIFwSAYyBpHfxfBse6Jti0LaoSBoyZs6y7jf OCKcQLUnpYepu2jpVTR4FIVpT1M0sRWrz4lkIRinFF XrcMT2begwQZfpKGFmliR7xkvbNSivHXAxrXM6fiikHJlkOAHjRtN1yzyaWBnxAMOxOTH0XEzfa072ZP Y4NZsnAzgxVJlnDFZsoqFojkYgnWenTNYnOKDyYBcaCKMiEVlpCJInKUNdFfEjzBdknZhdnL1zZuZhBx TmCTypIN4qHGFyE8bdzWRqJRLhIGNiM5inGiCtlT1l pFazUIuzqwKyNSXwlJ6fY0UzEQchz7Gsxjj9OJ7eiPZzSVZkmDNiTAPmf3WuXXMnGNsiBDJrKCOoUB5n t9Gli7V6YTvbVVG1 SPECIMEN SOURCE (test code = 3377) b7nsqETeZLQypZXeAgYyYQBsHGYay5txZDCxjRKgUpBeTtGhCsMlPinweSHsJUOuAwWzv5ihd577dLUv j9jfDOGwOuW9qRAsDALqbGZsP726b1kiz1slvoKjgOS4WNPpYGB6RWgclfBgjqV5UHoivDMvTiA4FEin coBeFVtkjhOkkmGhIct1TECfY989ARK7fApip9clYK G1RQRnJJAnAzYaDm8wtGJgR634XXAuAZRCAAVrqLi5YGKbawIayeQmdDZBr316N744e5waGDImzaEauP kXffyuf4yrM741YZMwgESyyrVyNzWnPGOnlGWlrII5HOFmDK3xqwpgHcScAZ6ipmkgJuUvRS0vhvh2Gi LyNX6igkbzVpEbHFlbUYRjsfngJFHeo8QptjchYI3v F5Kdt7S7jE6lrGYmPTTrhZAwZnNrYJKngp5pdYStVMpqy4WdYGN4prH0hZRjgFTfKIAsYR71Vuhac0Qk UkniRNA9OHNwlaJdt3Tgq0nsQjXqwmLzA9ehF4IlKVZzRTAbQVDsEoEvrrUsv7Wtb5MqsHZdcSr3o2cx MAMdTJLxaHwch9pkAPW4OGVkA2Q5nZYnu8dxUUgnGO DmwYB2lbkuZTqoJMNuzjI8zpdbSOgrPCZllDI3czrtFKgkJGDuOkR4hwfoZQcpNIXjCOR1KGykr563KD B1JKtqRalvNWomMVNgmaEliaNhxHdtRQRjBWHuAGwvRENbKBurDRVwYXZqEnRcwKtocSusnP3sDnUzBj BjDEvgHW8bKCCmI0ycmYBwJBPfSMQiZ8pfUgGieV 9wsBiuPWewneTrANeds3RsnCXjIO50exWlNCDraz5= GROSS DESCRIPTION (test code = 3366) l9wnqFSaUKIuuMDmYtMbHSZjBLTxd5lrTSPbuZUfBgGcRyNkXoRoXnialULxNBTeUxZok0qyg464cJLz x9tyWIVkAnE5kQXbHFJotBUhB212t6cgi9lbgrMewLM5TFCeWBG4QAkievKxyfV8STqkzUDfGuY7PUak ruXyEIhgubYgytDpHue0GPSgI947ZNL2rHwti4fgBN L2LWLuADWyEkYeNv0plRImK488PINcXBBXHMYfaRm1WVTyzmUtraRjuFZLi852M610g3laLTPrfoYcwJ fQruvzm8aiA137GFFwvMUirdAaQzIaBBIgfNTknUK0ZHSnHM9crtvdYgKtWV0pfuoxAvMhLZ3duth0Te MtRQ9twzwmWzIkWKqpKNLxbyblVHRyu5WvpqboPE2f A4Bwo0K8fX3awGJmHHCrqXRfZmKuKQAldm8qbPPlPGbba9UvJCE4ggO9uMOovHGfFTNdBC33Wziby0Kg SlphAFZ5GLDjbbSvg3Bsf0onWyNvliXoC8csN7FhHYBlDEIaHMRmQoRznaZjf4Yma2ZliIGbqRt5v1er DMBzQPFykWfvt0uqPMN9BVCdN7K9gCDge2hkEGyqLD GxgMH8wwttNAmtEJYsziV7pxftMKupHRGwiDX4kbyhTWyySXLfMtP3ysgaNPkvVFRrCKZ0DOtjy806OC F9MCboUvxqADxqOIKicoPpiwDvhCquRIFyJOJbGDhiHCTkTRbmMJFsPBGoWaOckZbfzMcosB8jRhMcEe WgAAjtMN9oYAUwN5ngnTNlPYAvYTOqH8ftRtAbjG6j sVxeIUyikyVzGWHzhfEkHG1qKdFhHAs2IFOhnF0oHv3tmFAtgS3ctLAdRUwxHLH5aYDxOXCnXGLgCP1j EBZglNibeuPkvbEhlkMrqx2sdWbvlpPorgFyJjsbv4HvfWPenxRoJD6tOHXwy5WiuZDnsLFyPMIrZwaf mFOuOpSaaPEgUrBsF56gJIpeomCxKXXyCG3uOAOgu0 hsNSBsrqVeicKbH0BgJMTsm6rghIFnUDXeUXpbBC53XB6tPQJtZcOicQgxy9BeGHEbVZKhgIPii5AyrR z5jWTpGAorUBWxoN6zz31zCVCdg8ZgkLZyRIxOLUhtHX6RAV3qn1yxTGZ7 MICROSCOPIC DESCRIPTION (test code = 3371) q9ovrGEwQZAduMFpMqAbIBYtOTYws7fgBWQmuOZkAoYdXnGjWsEsUyucpVJqTSMwVhLnj5ayf177wKWq e5foZTCdKhQ3bDYkKNXsjIMlM721z9xjg0emreOhpBZ9ZSGzJQR3PBzxjgCssqP7JNoqlKKkBfW2YNoc ccJwALgrpoYfobIdKek2OIOfZ715VZX4yByrg1ddJY Y7OSLpYCPqCyWfIy2hjCCzV188EYXbHESHEHUlrKr8ONXyubCdxvLhbJDXr067Q283l3naPHZpkwKixL vWqgcrf6uaT566CTRjaBEgtjIuEaIpDEBpsNZibWW4MOLsBS2vgbmbYuOxSY4bfqbiRaIrWV9hoqk9Na ObUG2uwdvkIsYuQGbvONXodbccZLCzt4WwyjrzVP2i W1Glf5X4dR8zaEOqGDHxiNDpAcWeYDFbot0myQRoDDbtv3TcCEC8wfW1iLEusKTyLEQxYR76Wngae2Bx DwiiYKS7CPBinqZyr3Gox6yjDgVvlgUqN8yqP0WiZGMoRCNgBJKoCoKckdInz8Uck9QlzTUfgVn3c3kn KFVeTEXayFhkd4kwFAD2FNLiT6D7yBYat1ilYAizNE ZzbDE9ovlwUTngQQNcsbN9lmhwVFanRYPkkII1sszuVOgpWUPbThW1fnzySWxaCZSdFHW7ANmua969YK W4YPeoBsttPWgcXHPdlnOnrfYnsLxyWVHeKTHbTGffKPFaJYwdFSDrXITgAyLvqJcinQqlxP0pUuSkRv LtXGchDF3xDOFbQ8vldQAnGHRsWHKvE0tbXlOuhT1sxBxjIHxwmmIpESDULfJHOj9RSK4gWUEauf3= SPECIAL STUDIES (test code = 3376) d6ymiCOjWFOakIGyGqMxVLUlLIEiz8oxSPAckDHdNkSaRdCpJsVbJoxiwAUnXMChZzXsf1qga125zIFn l2fdMTIpGoI8dSRfWYZfyPPoN843HCVuJTqxk4vwr3EsKPGvsFGnf0P6IONPNQofJbQyH315VXDpIHsu n0xlz9JaCUDckVFyc6E0TAFKmsnqoPf1kLglC21zb6 X0DsibX3nkCWRrRJZrU4GvNG1jGGCkUgf4POH1NZJ2RJXrVUAnC1YkSL2ySYBzeJVmVCu8m0pikSsqIB FsRVD7s2ebLLznygY7NE2lfh4gkZo5o4rsrkWnGDRnOTCjnGPGREOjU1PfoAybRo0rwYc5l0nkJhlknw V5eKQeBsYdFvQzBBawoRFbqsljPQGzOER7rVNARJe9 W280w6coELPwdbBmkOlLvjzek6dcF498WVFlmVEmwfQqLxOaUKRlpTWtkHV5DFSkRM9usswxXsVkOL3m sdusXvUvEM9lqrt6JrAhMM2ubwldTtUkZPavATRtdhthCBKgl1WekfcfFR5iT0Pck9L3uQ3yuUErKYDt yXTnUhMyLGAzbi3jeDQgKApjJBG1JORioyDon5Wpk3 fdYmLfgsQhA5smK8OjOFXnQSFrQSAhMqMillBzy8Aof9VuhOFntRj6p8abXBRsOWTtpOovt4bwLCI6UY NkV2D9cNLxr6rfJTawHKKknKE5qkmlTCaqDQZtdjY6dxeuGQmcEQBeyUF1yelnFNixRGVyPfD6qbqyFR ugGGYuCZA3MLuhs859NAW6NBqyInykNOetVAJcpbYj evYsdDboOHFfPZKaUHshQFGlKAnuJTFtECEtFhAukUhanFzudC2tAjNzEtWiPgpiZN6qCKJtF7vdlTXi RSAuUVHxE4veIwKgmH9luZybXDznWrRaJlTnWqNDiDApdH28TORoyhK0KRDpr79ll6NqnAmxagIaFUMg FWecE9e6UHGkLKMiPOD7d9Zpl0NjjJ5uhJ8jhZbjmV 2yvHCgjWS6rgrtj4Xoo8TdD8clqRRivBBkshSrJOLgXPcgRMHuXQDhNpOuwXDxMeBjYlGxzFsavXzlVX yqSvQnLHHqSXsbK4ktTrFyG2HdGLOyHwCrzNZuH7txhOPkZIVqQNsrRTIzMEWnOxGaaIQiXyKiBwOvmV eftOtvKDgmKpAyCTYhTYcmT7nyMaOwT5DfRNQpJrZe LfyUB7trCMGjGGeNCwVIEI9eN6UADiSZQRAsZWqiKRFdLUPfZpSoaJGwUeLfRvRcxJzkkMzuMWldSmHn BBVhBKlmG1usZpOmB9IfYNGlJoVcuROvL0cohAQwJVDiIObfGJLwVBGtLgEyvGCcQcNvNdOgwFasiFuf OEcgCwWnQFOoHIiyK6leLeUhL0AkLNBiYaBcO27kpZ AgpJXQwDvfULVcCIjweIyfBJZ6UDXZew6hj2NbTFAikk75blTlp3IvgPe2ODLrh843ma8hyjW9YPFdWH R7HIz0LBPiVBQvuQ3dMzN1yRQhZTXqDJQ1CYU9UWOye0J4YH4vYXLhTOJxSZVantZdi1zld0xuBZCdIC V2ghIhxC8cG3JvXACgu7IvcZyuOOIdrSxtyxMrBFIm dBSnAHPtjZ96ILVnkLXslHRnERBmXLR9BYpxjK5kUkCMzdOyah4miZUqh2UozEq8GCAlqvPggbYkJBHq vvFgV96ryMOgoVXgc7kwemBlrbMhbEMamBEyZQIhFGL7VSp2EBWxJAbmtTZoghvjPKsjgoXrYBubgfha RISoWEaxE2bnMoWsDNMnnUrwZKgct7YdFRSzRMZxYb tzvjHkCIn2zbYcBNLcxxgiuSPupaugCPrgdwLbVXvnnzbcKBIkTPrqQ1mrCtBtPAXskYtyUIfcz2UfNX IlHVNvQlormzSyGGKcjAczrQ7kFwRaCeRoHsfeKH2gJFNlJ8ydvZMjUMFoTNXpC6tqJxAxqB0xcAuoEW yhIeAxXpHmObxmqTVfiTpgDEYtnJlopT5sXsMeOlGu CunhEH1rCGOaB6qqxTMcKYHrLOWtA6snEiKkrO8ajMlzHVcjSuPoDeKkReAKeQ50xc4uyXR9d2XcGV5v t1OonSO0FDBvableWMtzuTOkxSunIaL6PAAtrURzPo6wdMXpUBE7ONAhyUqjzvPFhP6iWLOmOXnghALf oyhoVIndplKeBPvmecgmHLGiFAjuH1fgOhWgYEDxyF xvQRiab6NlKXEwLZQlQpgdsuGpQNU6CrT0MAqzZVGtwIopvO3kUzQhHdCxIelwUS0fWAZcK7uznAIuTX QjVGHjA5lnDrGgjG5vwDvbVGkhMcNhQxEhOvVdII9lHNpeEJddF9EogOOxHLAFGSAas3ywH6cwSFErw9 KwbT9wqVT2vSYiPFLiqWB5ARKqJVS5HYcsvTFbLEFt HJKakUSboTBwYt9teVYwR5GfS6srvhNvwYEstSZ9eKBqKJbnzdFmQUZ2ELQpoA4cLC5zAHHkxSGgLL6d lSVcXQReNOSlEFDyYXTnq3UhCIQfya12TBXjKowebHreEITfCx1jYs6mCTQcarSuALC5LfVEYR1ondbp xJCxxFaeej0jHHqxMMZAYLEjRENxINL2MHNioN2zHI J0jLG0QQE7I8mzL5ufZVBdjkAjTO5bPCDolDUaxjVtDHajLZ6auFAyDLUdt6GuahhwJTGhESP3AMU3ND bbWZZwLQKgMj1sBRQjsB6cU2YkGWT7btQft5EgXpXWhHScmX74oEAolh15UYJuLNZaR7YbPAQgRGXyQB gfadCiaMjiJKNbz01ojIGabdNsa9JebdSxPOSmC6lf ANIbkJLauHEyd0YafS7uvFMzeqNfNDF9cOTeUGMhgJ6nZBOdrMekDYTuaJ8vB1ZaAOdiNq8uZJIujuda BN3trf19OM2sxoRaLL5lunZaWP71knVfCrLqFVk0MByWLLmEMTt2RVIimyEpcLWryJWoOKMueO1kyCIj Wh6ksHQqePjzOQXmiLLhKQxqaGfvO3gieanpXFbcdH Jhx8HicN2oyGF7VID9dI0cQctyoKAlpchaVprvnkRsXBvdmoqvCYUpEZucB0hhEbTwVYOntBcnMbory7 KvMUYlPAUySzShmVKbKRWkpmWhjEcgyI6jBxMaVwXwJUbftDQicwycHsuyssW4WHAoqz2= Gross assessment was performed at (test code = 2777) [facility], Department of Pathology, [address] [place] [address], Technical component was performed at (test code = 2778 ) [facility], Department of Pathology, [address] [place] [address], Professional component was performed at (test code = 2 779) [facility], Department of Pathology, [address] [place] [id number], [facility] [id number] 10:37:00Surgical Pathology Report Case: [id number] Authorizing Provider: Eric Barkley Collected: 03/05/2020 01:49 PM Ordering Location: [address] Received: 03/05/2020 04:10 PM Service Pathologist: Andres Stuart MD Specimen: Biopsy, Gastric, Random Bx PART A RANDOM GASTRIC BIOPSY:ANTRAL MUCOSA WITH FOCAL ACTIVE CHRONIC GASTRITIS AND INTESTINAL METAPLASIA WITH REACTIVE CHANGES.NEGATIVE FOR DYSPLASIA OR INVASIVE CARCINOMA.WARTHIN STARRY STAIN FOR HELICOBACTER IS NEGATIVE. Signing Pathologist Direct Phone Line: [phone] signed by Andres Stuart MD on 03/06/2020 at 10:37 [id number] michi history: Melena Procedure: Upper endoscopy Gastric antrumPart A. Received in formalin labeled with the same patient's information and "gastric random biopsy" is a 0.7 x 0.3 x 0.2 cm aggregate of brown-barnett irregular shaped fragment of soft tissue that is submitted in toto one cassette (A1). ELLIS/ewPERFORMED. The inte rpretation of this case included the use of immunohistochemistry or special stai ns.BLOCK A1- WARTHIMike STARRYControl Slides Examined: In-house known positive con trols were evaluated along with the test tissue. These control slides run along side of the patients sample show appropriate staining. Internal positive and neg ative controls when available are evaluated Immunohistochemistry technical testi ng was performed at [facility], Pathology Laboratory where it was developed and its performance characteristics were determined. It has not been cleared or approved by the U.S. Food and Drug Administration. The FDA has determined that such clearance or approval is not necessary. The test is used f or clinical purposes. It should not be regarded as investigational or for resear ch. This laboratory is certified under the Clinical Laboratory Improvement Amend ments of 1988 (CLIA-88) as qualified to perform high complexity clinical laborat ory testing.[facility], Department of Pathology, [address] [place] [address], [facility] of [facility], [address] [place] [id number], [facility], [facility] of [facility], [address] [place] [address], Rzmyrrioc4434-07-16 08:41:00* Test Item Value Reference Range Interpretation Comments Potassium (test code = 2823-3) 5.3 meq/L 3.5-5.1 H Specimen slightly hemolyzed VADIM (test code = VADIM) [employer] ID - LM Lab Interpretation (test code = 91702-1) [facility] 08:41:00* Test Item Value Reference Range Interpretation Comments POTASSIUM (BEAKER) (test code = 379) 5.3 meq/L 3.5-5.1 H Specimen slightly hemolyzed [employer] ID - LMBASIC METABOLIC [id number] 05:33:00* Test Item Value Reference Range Interpretation Comments SODIUM (BEAKER) (test code = 381) 139 meq/L 136-145 POTASSIUM (BEAKER) (test code = 379) 5.4 meq/L 3.5-5.1 H CHLORIDE (BEAKER) (test code = 382) 112 meq/L 98-107 H CO2 (BEAKER) (test code = 355) 24 meq/L 22-29 BLOOD UREA NITROGEN (BEAKER) (test code = 354) 19 mg/dL 7-21 CREATININE (BEAKER) (test code = 358) 1.09 mg/dL 0.57-1.25 GLUCOSE RANDOM (BEAKER) (test code = 652) 95 mg/dL 70-105 CALCIUM (BEAKER) (test code = 697) 9.0 mg/dL 8.4-10.2 EGFR (BEAKER) (test code = 1092) 49 mL/min/1.73 sq m ESTIMATED GFR IS NOT ACCURATE CREATININE CLEARANCE IN PREDICTING GLOMERULAR FILTRATION RATE. ESTIMATED GFR IS NOT APPLICABLE FOR DIALYSIS PATIENTS. [employer] ID - PIAYA LCBC W/PLT COUNT & AUTO [id number] 05:06:00* Test Item Value Reference Range Interpretation Comments WHITE BLOOD CELL COUNT (BEAKER) (test code = 775) 8.4 K/ L 3.5- 10.5 RED BLOOD CELL COUNT (BEAKER) (test code = 761) 3.66 M/ L 3.93-5 .22 L HEMOGLOBIN (BEAKER) (test code = 410) 8.4 GM/DL 11.2-15.7 L HEMATOCRIT (BEAKER) (test code = 411) 28.2 % 34.1-44.9 L MEAN CORPUSCULAR VOLUME (BEAKER) (test code = 753) 77.0 fL 79. 4-94.8 L MEAN CORPUSCULAR HEMOGLOBIN (BEAKER) (test code = 751) 23.0 pg 25.6-32.2 L MEAN CORPUSCULAR HEMOGLOBIN CONC (BEAKER) (test code = 752) 29.8 GM/DL 32.2-35.5 L RED CELL DISTRIBUTION WIDTH (BEAKER) (test code = 412) 18.8 % 11.7-14.4 H PLATELET COUNT (BEAKER) (test code = 756) 230 K/CU MM 150-450 MEAN PLATELET VOLUME (BEAKER) (test code = 754) 11.1 fL 9.4-12 .3 NUCLEATED RED BLOOD CELLS (BEAKER) (test code = 413) 0 /100 WBC 0 -0 NEUTROPHILS RELATIVE PERCENT (BEAKER) (test code = 429) 48 % LYMPHOCYTES RELATIVE PERCENT (BEAKER) (test code = 430) 38 % MONOCYTES RELATIVE PERCENT (BEAKER) (test code = 431) 11 % EOSINOPHILS RELATIVE PERCENT (BEAKER) (test code = 432) 3 % BASOPHILS RELATIVE PERCENT (BEAKER) (test code = 437) 1 % NEUTROPHILS ABSOLUTE COUNT (BEAKER) (test code = 670) 4.01 K/ L 1.56-6.13 LYMPHOCYTES ABSOLUTE COUNT (BEAKER) (test code = 414) 3.17 K/ L 1.18-3.74 MONOCYTES ABSOLUTE COUNT (BEAKER) (test code = 415) 0.90 K/ L 0. 24-0.36 H EOSINOPHILS ABSOLUTE COUNT (BEAKER) (test code = 416) 0.21 K/ L 0.04-0.36 BASOPHILS ABSOLUTE COUNT (BEAKER) (test code = 417) 0.05 K/ L 0. 01-0.08 IMMATURE GRANULOCYTES-RELATIVE PERCENT (BEAKER) (test code = 2801) 0 % 0-1 BASIC METABOLIC [id number] 17:21:00* Test Item Value Reference Range Interpretation Comments SODIUM (BEAKER) (test code = 381) 138 meq/L 136-145 POTASSIUM (BEAKER) (test code = 379) 4.8 meq/L 3.5-5.1 CHLORIDE (BEAKER) (test code = 382) 112 meq/L 98-107 H CO2 (BEAKER) (test code = 355) 22 meq/L 22-29 BLOOD UREA NITROGEN (BEAKER) (test code = 354) 19 mg/dL 7-21 CREATININE (BEAKER) (test code = 358) 1.07 mg/dL 0.57-1.25 GLUCOSE RANDOM (BEAKER) (test code = 652) 100 mg/dL 70-105 CALCIUM (BEAKER) (test code = 697) 8.8 mg/dL 8.4-10.2 EGFR (BEAKER) (test code = 1092) 50 mL/min/1.73 sq m ESTIMATED GFR IS NOT ACCURATE CREATININE CLEARANCE IN PREDICTING GLOMERULAR FILTRATION RATE. ESTIMATED GFR IS NOT APPLICABLE FOR DIALYSIS PATIENTS. [employer] ID - EDASICBC W/PLT COUNT & AUTO [id number] 17:07:00* Test Item Value Reference Range Interpretation Comments WHITE BLOOD CELL COUNT (BEAKER) (test code = 775) 7.6 K/ L 3.5- 10.5 RED BLOOD CELL COUNT (BEAKER) (test code = 761) 3.77 M/ L 3.93-5 .22 L HEMOGLOBIN (BEAKER) (test code = 410) 8.6 GM/DL 11.2-15.7 L HEMATOCRIT (BEAKER) (test code = 411) 28.8 % 34.1-44.9 L MEAN CORPUSCULAR VOLUME (BEAKER) (test code = 753) 76.4 fL 79. 4-94.8 L MEAN CORPUSCULAR HEMOGLOBIN (BEAKER) (test code = 751) 22.8 pg 25.6-32.2 L MEAN CORPUSCULAR HEMOGLOBIN CONC (BEAKER) (test code = 752) 29.9 GM/DL 32.2-35.5 L RED CELL DISTRIBUTION WIDTH (BEAKER) (test code = 412) 18.6 % 11.7-14.4 H PLATELET COUNT (BEAKER) (test code = 756) 243 K/CU MM 150-450 MEAN PLATELET VOLUME (BEAKER) (test code = 754) 11.2 fL 9.4-12 .3 NUCLEATED RED BLOOD CELLS (BEAKER) (test code = 413) 0 /100 WBC 0 -0 NEUTROPHILS RELATIVE PERCENT (BEAKER) (test code = 429) 42 % LYMPHOCYTES RELATIVE PERCENT (BEAKER) (test code = 430) 44 % MONOCYTES RELATIVE PERCENT (BEAKER) (test code = 431) 11 % EOSINOPHILS RELATIVE PERCENT (BEAKER) (test code = 432) 2 % BASOPHILS RELATIVE PERCENT (BEAKER) (test code = 437) 1 % NEUTROPHILS ABSOLUTE COUNT (BEAKER) (test code = 670) 3.20 K/ L 1.56-6.13 LYMPHOCYTES ABSOLUTE COUNT (BEAKER) (test code = 414) 3.32 K/ L 1.18-3.74 MONOCYTES ABSOLUTE COUNT (BEAKER) (test code = 415) 0.81 K/ L 0. 24-0.36 H EOSINOPHILS ABSOLUTE COUNT (BEAKER) (test code = 416) 0.18 K/ L 0.04-0.36 BASOPHILS ABSOLUTE COUNT (BEAKER) (test code = 417) 0.06 K/ L 0. 01-0.08 IMMATURE GRANULOCYTES-RELATIVE PERCENT (BEAKER) (test code = 2801) 0 % 0-1 SARS-CoV2/RT-PCR (Asymptomatic ONLY)2020-03-05 11:31:00* Test Item Value Reference Range Interpretation Comments SARS-COV2/RT-PCR (test code = 15387-7) Negative Not Detected, N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 (BEAKER) (test code = 753) 88.5 fL 82. 0-99.0 MEAN CORPUSCULAR HEMOGLOBIN (BEAKER) (test code = 751) 27.8 pg 27.0-33.0 MEAN CORPUSCULAR HEMOGLOBIN CONC (BEAKER) (test code = 752) 31.5 GM/DL 32.0-36.0 L RED CELL DISTRIBUTION WIDTH (BEAKER) (test code = 412) 12.9 % 10.3-14.2 PLATELET COUNT (BEAKER) (test code = 756) 144 K/CU MM 150-430 L MEAN PLATELET VOLUME (BEAKER) (test code = 754) 9.3 fL 6.5-10 .5 NUCLEATED RED BLOOD CELLS (BEAKER) (test code = 413) 0 /100 WBC 0 -0 NEUTROPHILS RELATIVE PERCENT (BEAKER) (test code = 429) 81 % LYMPHOCYTES RELATIVE PERCENT (BEAKER) (test code = 430) 8 % MONOCYTES RELATIVE PERCENT (BEAKER) (test code = 431) 10 % EOSINOPHILS RELATIVE PERCENT (BEAKER) (test code = 432) 0 % BASOPHILS RELATIVE PERCENT (BEAKER) (test code = 437) 1 % NEUTROPHILS ABSOLUTE COUNT (BEAKER) (test code = 670) 10.70 K/ L 1.80-8.00 H LYMPHOCYTES ABSOLUTE COUNT (BEAKER) (test code = 414) 1.07 K/ L 1.48-4.50 L MONOCYTES ABSOLUTE COUNT (BEAKER) (test code = 415) 1.34 K/ L 0. 00-1.30 H EOSINOPHILS ABSOLUTE COUNT (BEAKER) (test code = 416) 0.03 K/ L 0.00-0.50 BASOPHILS ABSOLUTE COUNT (BEAKER) (test code = 417) 0.13 K/ L 0. 00-0.20 [id number] 05:06:00* Test Item Value Reference Range Interpretation Comments MAGNESIUM (BEAKER) (test code = 627) 1.9 mg/dL 1.6-2.6 BASIC METABOLIC [id number] 05:06:00* Test Item Value Reference Range Interpretation Comments SODIUM (BEAKER) (test code = 381) 140 meq/L 136-145 POTASSIUM (BEAKER) (test code = 379) 4.1 meq/L 3.5-5.1 CHLORIDE (BEAKER) (test code = 382) 112 meq/L 98-107 H CO2 (BEAKER) (test code = 355) 20 meq/L 22-29 L BLOOD UREA NITROGEN (BEAKER) (test code = 354) 18 mg/dL 7-21 CREATININE (BEAKER) (test code = 358) 1.12 mg/dL 0.57-1.25 GLUCOSE RANDOM (BEAKER) (test code = 652) 109 mg/dL 70-105 H CALCIUM (BEAKER) (test code = 697) 8.7 mg/dL 8.4-10.2 EGFR (BEAKER) (test code = 1092) 48 mL/min/1.73 sq m ESTIMATED GFR IS NOT ACCURATE CREATININE CLEARANCE IN PREDICTING GLOMERULAR FILTRATION RATE. ESTIMATED GFR IS NOT APPLICABLE FOR DIALYSIS PATIENTS. CALCIUM, [id number] 04:56:00* Test Item Value Reference Range Interpretation Comments CALCIUM IONIZED (BEAKER) (test code = 698) 1.18 mmol/L 1.12-1.27 PH, BLOOD (BEAKER) (test code = 1810) 7.43 BLOOD GAS, [id number] 02:40:00* Test Item Value Reference Range Interpretation Comments PH ARTERIAL (BEAKER) (test code = 383) 7.37 7.35-7.45 PCO2 ARTERIAL (BEAKER) (test code = 384) 33 mmHg 35-45 L PO2 ARTERIAL (BEAKER) (test code = 385) 92 mmHg 80-90 H O2 SATURATION ARTERIAL (BEAKER) (test code = 386) 96.5 % 96.0 -97.0 HCO3 ARTERIAL (BEAKER) (test code = 388) 18 mmol/L 21-29 L BASE EXCESS ARTERIAL (BEAKER) (test code = 387) -6.3 mmol/L -2.0-3 .0 L PATIENT TEMPERATURE (BEAKER) (test code = 1818) 38.2 C FIO2 (BEAKER) (test code = 1819) 40.0 % GLUCOSE-STAT [id number] 02:40:00* Test Item Value Reference Range Interpretation Comments GLUCOSE RANDOM (BEAKER) (test code = 652) 126 mg/dL 70-110 H HGB/HCT (H&H) - STAT [id number] 02:40:00* Test Item Value Reference Range Interpretation Comments HEMOGLOBIN (BEAKER) (test code = 410) 9.2 g/dL 12.0-15.0 L HEMATOCRIT (BEAKER) (test code = 411) 27.0 % 36.0-45.0 L SODIUM NA-STAT [id number] 02:39:00* Test Item Value Reference Range Interpretation Comments SODIUM (BEAKER) (test code = 381) 136 meq/L 135-148 POTASSIUM-STAT [id number] 02:39:00* Test Item Value Reference Range Interpretation Comments POTASSIUM (BEAKER) (test code = 379) 4.1 meq/L 3.6-5.5 BLOOD GAS, [id number] 00:21:00* Test Item Value Reference Range Interpretation Comments PH ARTERIAL (BEAKER) (test code = 383) 7.38 7.35-7.45 PCO2 ARTERIAL (BEAKER) (test code = 384) 36 mmHg 35-45 PO2 ARTERIAL (BEAKER) (test code = 385) 95 mmHg 80-90 H O2 SATURATION ARTERIAL (BEAKER) (test code = 386) 96.9 % 96.0 -97.0 HCO3 ARTERIAL (BEAKER) (test code = 388) 20 mmol/L 21-29 L BASE EXCESS ARTERIAL (BEAKER) (test code = 387) -4.0 mmol/L -2.0-3 .0 L PATIENT TEMPERATURE (BEAKER) (test code = 1818) 37.9 C FIO2 (BEAKER) (test code = 1819) 40.0 % GLUCOSE-STAT [id number] 00:21:00* Test Item Value Reference Range Interpretation Comments GLUCOSE RANDOM (BEAKER) (test code = 652) 125 mg/dL 70-110 H HGB/HCT (H&H) - STAT [id number] 00:21:00* Test Item Value Reference Range Interpretation Comments HEMOGLOBIN (BEAKER) (test code = 410) 9.0 g/dL 12.0-15.0 L HEMATOCRIT (BEAKER) (test code = 411) 26.0 % 36.0-45.0 L SODIUM NA-STAT [id number] 00:20:00* Test Item Value Reference Range Interpretation Comments SODIUM (BEAKER) (test code = 381) 137 meq/L 135-148 POTASSIUM-STAT [id number] 00:20:00* Test Item Value Reference Range Interpretation Comments POTASSIUM (BEAKER) (test code = 379) 3.9 meq/L 3.6-5.5 POCT-GLUCOSE [id number] 23:36:00* Test Item Value Reference Range Interpretation Comments POC-GLUCOSE METER (BEAKER) (test code = 1538) 145 mg/dL 70-110 H TESTED AT [facility] [address] [facility] [address] POCT-GLUCOSE [id number] 21:28:00* Test Item Value Reference Range Interpretation Comments POC-GLUCOSE METER (BEAKER) (test code = 1538) 124 mg/dL 70-110 H TESTED AT [facility] [address] [facility] [address] HEPATIC FUNCTION [id number] 20:30:00* Test Item Value Reference Range Interpretation Comments TOTAL PROTEIN (BEAKER) (test code = 770) 4.3 gm/dL 6.0-8.3 L ALBUMIN (BEAKER) (test code = 1145) 2.8 g/dL 3.5-5.0 L BILIRUBIN TOTAL (BEAKER) (test code = 377) 1.9 mg/dL 0.2-1.2 H BILIRUBIN DIRECT (BEAKER) (test code = 706) 1.3 mg/dL 0.1-0.5 H ALKALINE PHOSPHATASE (BEAKER) (test code = 346) 33 U/L 40-150 L AST (SGOT) (BEAKER) (test code = 353) 39 U/L 5-34 H ALT (SGPT) (BEAKER) (test code = 347) 15 U/L 6-55 BASIC METABOLIC [id number] 20:30:00* Test Item Value Reference Range Interpretation Comments SODIUM (BEAKER) (test code = 381) 141 meq/L 136-145 POTASSIUM (BEAKER) (test code = 379) 3.5 meq/L 3.5-5.1 CHLORIDE (BEAKER) (test code = 382) 112 meq/L 98-107 H CO2 (BEAKER) (test code = 355) 20 meq/L 22-29 L BLOOD UREA NITROGEN (BEAKER) (test code = 354) 18 mg/dL 7-21 CREATININE (BEAKER) (test code = 358) 1.16 mg/dL 0.57-1.25 GLUCOSE RANDOM (BEAKER) (test code = 652) 116 mg/dL 70-105 H CALCIUM (BEAKER) (test code = 697) 8.1 mg/dL 8.4-10.2 L EGFR (BEAKER) (test code = 1092) 46 mL/min/1.73 sq m ESTIMATED GFR IS NOT ACCURATE CREATININE CLEARANCE IN PREDICTING GLOMERULAR FILTRATION RATE. ESTIMATED GFR IS NOT APPLICABLE FOR DIALYSIS PATIENTS. CREATINE KINASE (CK)2016-11-09 20:30:00* Test Item Value Reference Range Interpretation Comments CREATINE KINASE TOTAL (BEAKER) (test code = 380) 280 U/L 29-20 0 H LACTIC ACID, ARTERIAL, WHOLE [id number] 20:23:00* Test Item Value Reference Range Interpretation Comments LACTATE BLOOD ARTERIAL (2) (BEAKER) (test code = 2874) 2.4 mmol/L 0.5-2.2 H Effective 12/24/2015: Units/Reference Range ChangeNew: 0.5-2.2 mmol/L Previous: 5 -20 mg/dLCALCIUM, [id number] 20:05:00* Test Item Value Reference Range Interpretation Comments CALCIUM IONIZED (BEAKER) (test code = 698) 1.17 mmol/L 1.12-1.27 PH, BLOOD (BEAKER) (test code = 1810) 7.43 BLOOD GAS, [id number] 20:05:00* Test Item Value Reference Range Interpretation Comments PH ARTERIAL (BEAKER) (test code = 383) 7.43 7.35-7.45 PCO2 ARTERIAL (BEAKER) (test code = 384) 31 mmHg 35-45 L PO2 ARTERIAL (BEAKER) (test code = 385) 125 mmHg 80-90 H O2 SATURATION ARTERIAL (BEAKER) (test code = 386) 98.6 % 96.0 -97.0 H HCO3 ARTERIAL (BEAKER) (test code = 388) 20 mmol/L 21-29 L BASE EXCESS ARTERIAL (BEAKER) (test code = 387) -3.3 mmol/L -2.0-3 .0 L PATIENT TEMPERATURE (BEAKER) (test code = 1818) 36.7 C FIO2 (BEAKER) (test code = 1819) 40.0 % OXYGEN SATURATION, [id number] 20:05:00* Test Item Value Reference Range Interpretation Comments O2 SATURATION (MEASURED) (BEAKER) (test code = 1455) 71.3 % BLOOD GAS, [id number] 17:53:00* Test Item Value Reference Range Interpretation Comments PH ARTERIAL (BEAKER) (test code = 383) 7.53 7.35-7.45 H PCO2 ARTERIAL (BEAKER) (test code = 384) 18 mmHg 35-45 LL PO2 ARTERIAL (BEAKER) (test code = 385) 113 mmHg 80-90 H O2 SATURATION ARTERIAL (BEAKER) (test code = 386) 98.8 % 96.0 -97.0 H HCO3 ARTERIAL (BEAKER) (test code = 388) 14 mmol/L 21-29 L BASE EXCESS ARTERIAL (BEAKER) (test code = 387) -6.8 mmol/L -2.0-3 .0 L PATIENT TEMPERATURE (BEAKER) (test code = 1818) 35.3 C FIO2 (BEAKER) (test code = 1819) 40.0 % POCT-GLUCOSE [id number] 17:48:00* Test Item Value Reference Range Interpretation Comments POC-GLUCOSE METER (BEAKER) (test code = 1538) 135 mg/dL 70-110 H TESTED AT [facility] [address] [facility] [address] PROTHROMBIN [id number] 15:28:00* Test Item Value Reference Range Interpretation Comments PROTIME (BEAKER) (test code = 759) 19.3 seconds 11.7-14.7 H INR (BEAKER) (test code = 370) 1.6 <=5.9 RECOMMENDED COUMADIN/WARFARIN INR THERAPY RANGESSTANDARD DOSE: 2.0 - 3.0 Inclu john: PROPHYLAXIS for venous thrombosis, systemic embolization; TREATMENT for afia ous thrombosis and/or pulmonary embolus.HIGH RISK: Target INR is 2.5-3.5 for pat ients with mechanical heart valves.[id number] 15:28:00* Test Item Value Reference Range Interpretation Comments FIBRINOGEN LEVEL (BEAKER) (test code = 658) 237 mg/dl 225-434 [id number] 15:28:00* Test Item Value Reference Range Interpretation Comments POTASSIUM (BEAKER) (test code = 379) 4.2 meq/L 3.5-5.1 [id number] 15:28:00* Test Item Value Reference Range Interpretation Comments MAGNESIUM (BEAKER) (test code = 627) 1.6 mg/dL 1.6-2.6 [id number] 15:28:00* Test Item Value Reference Range Interpretation Comments GLUCOSE RANDOM (BEAKER) (test code = 652) 153 mg/dL 70-105 H Effective 07/09/2014: Reference Range Change-Adult onlyNew: 70-105 Previous: 70-110BASIC METABOLIC [id number] 15:28:00* Test Item Value Reference Range Interpretation Comments SODIUM (BEAKER) (test code = 381) 138 meq/L 136-145 POTASSIUM (BEAKER) (test code = 379) 4.2 meq/L 3.5-5.1 CHLORIDE (BEAKER) (test code = 382) 113 meq/L 98-107 H CO2 (BEAKER) (test code = 355) 15 meq/L 22-29 L BLOOD UREA NITROGEN (BEAKER) (test code = 354) 18 mg/dL 7-21 CREATININE (BEAKER) (test code = 358) 1.20 mg/dL 0.57-1.25 GLUCOSE RANDOM (BEAKER) (test code = 652) 153 mg/dL 70-105 H CALCIUM (BEAKER) (test code = 697) 8.9 mg/dL 8.4-10.2 EGFR (BEAKER) (test code = 1092) 44 mL/min/1.73 sq m ESTIMATED GFR IS NOT ACCURATE CREATININE CLEARANCE IN PREDICTING GLOMERULAR FILTRATION RATE. ESTIMATED GFR IS NOT APPLICABLE FOR DIALYSIS PATIENTS. LACTIC ACID, ARTERIAL, WHOLE [id number] 15:25:00* Test Item Value Reference Range Interpretation Comments LACTATE BLOOD ARTERIAL (2) (BEAKER) (test code = 2874) 2.3 mmol/L 0.5-2.2 H Specimen slightly hemolyzed Effective 12/24/2015: Units/Reference Range ChangeNew: 0.5-2.2 mmol/L Previous: 5 -20 mg/dLCBC W/PLT COUNT & AUTO [id number] 15:20:00* Test Item Value Reference Range Interpretation Comments WHITE BLOOD CELL COUNT (BEAKER) (test code = 775) 13.8 K/ L 4.0- 10.0 H RED BLOOD CELL COUNT (BEAKER) (test code = 761) 3.65 M/ L 4.00-5 .00 L HEMOGLOBIN (BEAKER) (test code = 410) 11.1 GM/DL 12.0-15.0 L HEMATOCRIT (BEAKER) (test code = 411) 32.8 % 36.0-45.0 L MEAN CORPUSCULAR VOLUME (BEAKER) (test code = 753) 89.7 fL 82. 0-99.0 MEAN CORPUSCULAR HEMOGLOBIN (BEAKER) (test code = 751) 30.4 pg 27.0-33.0 MEAN CORPUSCULAR HEMOGLOBIN CONC (BEAKER) (test code = 752) 33.9 GM/DL 32.0-36.0 RED CELL DISTRIBUTION WIDTH (BEAKER) (test code = 412) 12.1 % 10.3-14.2 PLATELET COUNT (BEAKER) (test code = 756) 131 K/CU MM 150-430 L MEAN PLATELET VOLUME (BEAKER) (test code = 754) 8.3 fL 6.5-10 .5 NUCLEATED RED BLOOD CELLS (BEAKER) (test code = 413) 0 /100 WBC 0 -0 NEUTROPHILS RELATIVE PERCENT (BEAKER) (test code = 429) 74 % LYMPHOCYTES RELATIVE PERCENT (BEAKER) (test code = 430) 20 % MONOCYTES RELATIVE PERCENT (BEAKER) (test code = 431) 4 % EOSINOPHILS RELATIVE PERCENT (BEAKER) (test code = 432) 1 % BASOPHILS RELATIVE PERCENT (BEAKER) (test code = 437) 0 % NEUTROPHILS ABSOLUTE COUNT (BEAKER) (test code = 670) 10.20 K/ L 1.80-8.00 H LYMPHOCYTES ABSOLUTE COUNT (BEAKER) (test code = 414) 2.77 K/ L 1.48-4.50 MONOCYTES ABSOLUTE COUNT (BEAKER) (test code = 415) 0.61 K/ L 0. 00-1.30 EOSINOPHILS ABSOLUTE COUNT (BEAKER) (test code = 416) 0.14 K/ L 0.00-0.50 BASOPHILS ABSOLUTE COUNT (BEAKER) (test code = 417) 0.05 K/ L 0. 00-0.20 0.00OXYGEN SATURATION, [id number] 15:17:00* Test Item Value Reference Range Interpretation Comments O2 SATURATION (MEASURED) (BEAKER) (test code = 1455) 55.7 % POTASSIUM-STAT [id number] 15:14:00* Test Item Value Reference Range Interpretation Comments POTASSIUM (BEAKER) (test code = 379) 3.8 meq/L 3.6-5.5 GLUCOSE-STAT [id number] 15:14:00* Test Item Value Reference Range Interpretation Comments GLUCOSE RANDOM (BEAKER) (test code = 652) 147 mg/dL 70-110 H HGB/HCT (H&H) - STAT [id number] 15:14:00* Test Item Value Reference Range Interpretation Comments HEMOGLOBIN (BEAKER) (test code = 410) 11.0 g/dL 12.0-15.0 L HEMATOCRIT (BEAKER) (test code = 411) 32.0 % 36.0-45.0 L SODIUM NA-STAT [id number] 15:14:00* Test Item Value Reference Range Interpretation Comments SODIUM (BEAKER) (test code = 381) 134 meq/L 135-148 L THROMBOELASTOGRAPH (TEG)2016-11-09 14:53:00* Test Item Value Reference Range Interpretation Comments TEG ACTIVATED CLOTTING TIME (BEAKER) (test code = 1407) 8.0 minutes 4.0-7.0 H TEG FIBRINOGEN ACTIVITY (BEAKER) (test code = 1408) 68.9 degrees 61 .0-73.0 TEG PLT. AGGREGATION (BEAKER) (test code = 1409) 50.9 MM 55.0- 65.0 L TGH ACTIVATED CLOTTING TIME (BEAKER) (test code = 1411) 8.9 minutes 4.0-7.0 H TGH FIBRINOGEN ACTIVITY (BEAKER) (test code = 1412) 67.0 degrees 61 .0-73.0 TGH PLT. AGGREGATION (BEAKER) (test code = 1413) 61.1 MM 55.0- 65.0 [id number] 14:02:00* Test Item Value Reference Range Interpretation Comments ACTIVATED CLOTTING TIME (BEAKER) (test code = 441) 152 sec TESTED AT [place] [address] [id number] 14:02:00* Test Item Value Reference Range Interpretation Comments ACTIVATED CLOTTING TIME (BEAKER) (test code = 441) 451 sec TESTED AT [place] [address] [id number] 14:02:00* Test Item Value Reference Range Interpretation Comments ACTIVATED CLOTTING TIME (BEAKER) (test code = 441) 384 sec TESTED AT [place] [address] [id number] 14:02:00* Test Item Value Reference Range Interpretation Comments ACTIVATED CLOTTING TIME (BEAKER) (test code = 441) 538 sec TESTED AT [place] [address] [id number] 14:02:00* Test Item Value Reference Range Interpretation Comments ACTIVATED CLOTTING TIME (BEAKER) (test code = 441) 451 sec TESTED AT [place] [address] [id number] 14:02:00* Test Item Value Reference Range Interpretation Comments ACTIVATED CLOTTING TIME (BEAKER) (test code = 441) 435 sec TESTED AT [place] [address] [id number] 13:52:00* Test Item Value Reference Range Interpretation Comments FIBRINOGEN LEVEL (BEAKER) (test code = 658) 192 mg/dl 225-434 L [id number] 13:51:00* Test Item Value Reference Range Interpretation Comments PARTIAL THROMBOPLASTIN TIME (BEAKER) (test code = 760) 45.6 seconds 22.5-36.0 H PROTHROMBIN [id number] 13:50:00* Test Item Value Reference Range Interpretation Comments PROTIME (BEAKER) (test code = 759) 25.7 seconds 11.7-14.7 H INR (BEAKER) (test code = 370) 2.3 <=5.9 RECOMMENDED COUMADIN/WARFARIN INR THERAPY RANGESSTANDARD DOSE: 2.0 - 3.0 Inclu john: PROPHYLAXIS for venous thrombosis, systemic embolization; TREATMENT for afia ous thrombosis and/or pulmonary embolus.HIGH RISK: Target INR is 2.5-3.5 for pat ients with mechanical heart valves.PLATELET [id number] 13:45:00* Test Item Value Reference Range Interpretation Comments PLATELET COUNT (BEAKER) (test code = 756) 123 K/CU MM 150-430 L BLOOD GAS, [id number] 13:26:00* Test Item Value Reference Range Interpretation Comments PH ARTERIAL (BEAKER) (test code = 383) 7.34 7.35-7.45 L PCO2 ARTERIAL (BEAKER) (test code = 384) 35 mmHg 35-45 PO2 ARTERIAL (BEAKER) (test code = 385) 483 mmHg 80-90 H O2 SATURATION ARTERIAL (BEAKER) (test code = 386) 99.9 % 96.0 -97.0 H HCO3 ARTERIAL (BEAKER) (test code = 388) 19 mmol/L 21-29 L BASE EXCESS ARTERIAL (BEAKER) (test code = 387) -6.8 mmol/L -2.0-3 .0 L PATIENT TEMPERATURE (BEAKER) (test code = 1818) 33.8 C FIO2 (BEAKER) (test code = 1819) 100.0 % SODIUM NA-STAT [id number] 13:26:00* Test Item Value Reference Range Interpretation Comments SODIUM (BEAKER) (test code = 381) 134 meq/L 135-148 L GLUCOSE-STAT [id number] 13:26:00* Test Item Value Reference Range Interpretation Comments GLUCOSE RANDOM (BEAKER) (test code = 652) 226 mg/dL 70-110 H HGB/HCT (H&H) - STAT [id number] 13:26:00* Test Item Value Reference Range Interpretation Comments HEMOGLOBIN (BEAKER) (test code = 410) 7.2 g/dL 12.0-15.0 L HEMATOCRIT (BEAKER) (test code = 411) 21.0 % 36.0-45.0 L CALCIUM, [id number] 13:26:00* Test Item Value Reference Range Interpretation Comments CALCIUM IONIZED (BEAKER) (test code = 698) 1.40 mmol/L 1.12-1.27 H PH, BLOOD (BEAKER) (test code = 1810) 7.30 POTASSIUM-STAT [id number] 13:23:00* Test Item Value Reference Range Interpretation Comments POTASSIUM (BEAKER) (test code = 379) 4.1 meq/L 3.6-5.5 SODIUM NA-STAT [id number] 12:05:00* Test Item Value Reference Range Interpretation Comments SODIUM (BEAKER) (test code = 381) 136 meq/L 135-148 POTASSIUM-STAT [id number] 12:05:00* Test Item Value Reference Range Interpretation Comments POTASSIUM (BEAKER) (test code = 379) 4.3 meq/L 3.6-5.5 BLOOD GAS, [id number] 12:05:00* Test Item Value Reference Range Interpretation Comments PH ARTERIAL (BEAKER) (test code = 383) 7.39 7.35-7.45 PCO2 ARTERIAL (BEAKER) (test code = 384) 34 mmHg 35-45 L PO2 ARTERIAL (BEAKER) (test code = 385) 441 mmHg 80-90 H O2 SATURATION ARTERIAL (BEAKER) (test code = 386) 99.8 % 96.0 -97.0 H HCO3 ARTERIAL (BEAKER) (test code = 388) 20 mmol/L 21-29 L BASE EXCESS ARTERIAL (BEAKER) (test code = 387) -4.9 mmol/L -2.0-3 .0 L PATIENT TEMPERATURE (BEAKER) (test code = 1818) 34.3 C FIO2 (BEAKER) (test code = 1819) 100.0 % GLUCOSE-STAT [id number] 12:05:00* Test Item Value Reference Range Interpretation Comments GLUCOSE RANDOM (BEAKER) (test code = 652) 216 mg/dL 70-110 H HGB/HCT (H&H) - STAT [id number] 12:05:00* Test Item Value Reference Range Interpretation Comments HEMOGLOBIN (BEAKER) (test code = 410) 7.3 g/dL 12.0-15.0 L HEMATOCRIT (BEAKER) (test code = 411) 21.0 % 36.0-45.0 L CALCIUM, [id number] 11:11:00* Test Item Value Reference Range Interpretation Comments CALCIUM IONIZED (BEAKER) (test code = 698) 1.04 mmol/L 1.12-1.27 L PH, BLOOD (BEAKER) (test code = 1810) 7.37 SODIUM NA-STAT [id number] 11:10:00* Test Item Value Reference Range Interpretation Comments SODIUM (BEAKER) (test code = 381) 136 meq/L 135-148 POTASSIUM-STAT [id number] 11:10:00* Test Item Value Reference Range Interpretation Comments POTASSIUM (BEAKER) (test code = 379) 3.8 meq/L 3.6-5.5 BLOOD GAS, [id number] 11:10:00* Test Item Value Reference Range Interpretation Comments PH ARTERIAL (BEAKER) (test code = 383) 7.41 7.35-7.45 PCO2 ARTERIAL (BEAKER) (test code = 384) 32 mmHg 35-45 L PO2 ARTERIAL (BEAKER) (test code = 385) 496 mmHg 80-90 H O2 SATURATION ARTERIAL (BEAKER) (test code = 386) 99.9 % 96.0 -97.0 H HCO3 ARTERIAL (BEAKER) (test code = 388) 20 mmol/L 21-29 L BASE EXCESS ARTERIAL (BEAKER) (test code = 387) -4.5 mmol/L -2.0-3 .0 L PATIENT TEMPERATURE (BEAKER) (test code = 1818) 34.6 C FIO2 (BEAKER) (test code = 1819) 100.0 % GLUCOSE-STAT [id number] 11:10:00* Test Item Value Reference Range Interpretation Comments GLUCOSE RANDOM (BEAKER) (test code = 652) 184 mg/dL 70-110 H HGB/HCT (H&H) - STAT [id number] 11:10:00* Test Item Value Reference Range Interpretation Comments HEMOGLOBIN (BEAKER) (test code = 410) 9.1 g/dL 12.0-15.0 L HEMATOCRIT (BEAKER) (test code = 411) 27.0 % 36.0-45.0 L BLOOD GAS, [id number] 08:48:00* Test Item Value Reference Range Interpretation Comments PH ARTERIAL (BEAKER) (test code = 383) 7.53 7.35-7.45 H PCO2 ARTERIAL (BEAKER) (test code = 384) 28 mmHg 35-45 L PO2 ARTERIAL (BEAKER) (test code = 385) 500 mmHg 80-90 H O2 SATURATION ARTERIAL (BEAKER) (test code = 386) 99.9 % 96.0 -97.0 H HCO3 ARTERIAL (BEAKER) (test code = 388) 23 mmol/L 21-29 BASE EXCESS ARTERIAL (BEAKER) (test code = 387) 0.7 mmol/L -2.0-3 .0 PATIENT TEMPERATURE (BEAKER) (test code = 1818) 35.7 C FIO2 (BEAKER) (test code = 1819) 100.0 % HGB/HCT (H&H) - STAT [id number] 08:48:00* Test Item Value Reference Range Interpretation Comments HEMOGLOBIN (BEAKER) (test code = 410) 11.6 g/dL 12.0-15.0 L HEMATOCRIT (BEAKER) (test code = 411) 34.0 % 36.0-45.0 L CALCIUM, [id number] 08:48:00* Test Item Value Reference Range Interpretation Comments CALCIUM IONIZED (BEAKER) (test code = 698) 1.14 mmol/L 1.12-1.27 PH, BLOOD (BEAKER) (test code = 1810) 7.51 GLUCOSE-STAT [id number] 08:47:00* Test Item Value Reference Range Interpretation Comments GLUCOSE RANDOM (BEAKER) (test code = 652) 108 mg/dL 70-110 SODIUM NA-STAT [id number] 08:47:00* Test Item Value Reference Range Interpretation Comments SODIUM (BEAKER) (test code = 381) 136 meq/L 135-148 POTASSIUM-STAT [id number] 08:47:00* Test Item Value Reference Range Interpretation Comments POTASSIUM (BEAKER) (test code = 379) 3.9 meq/L 3.6-5.5 CBC W/PLT COUNT & AUTO [id number] 08:14:00* Test Item Value Reference Range Interpretation Comments WHITE BLOOD CELL COUNT (BEAKER) (test code = 775) 7.9 K/ L 4.0- 10.0 RED BLOOD CELL COUNT (BEAKER) (test code = 761) 4.01 M/ L 4.00-5 .00 HEMOGLOBIN (BEAKER) (test code = 410) 12.1 GM/DL 12.0-15.0 HEMATOCRIT (BEAKER) (test code = 411) 36.1 % 36.0-45.0 MEAN CORPUSCULAR VOLUME (BEAKER) (test code = 753) 89.9 fL 82. 0-99.0 MEAN CORPUSCULAR HEMOGLOBIN (BEAKER) (test code = 751) 30.2 pg 27.0-33.0 MEAN CORPUSCULAR HEMOGLOBIN CONC (BEAKER) (test code = 752) 33.6 GM/DL 32.0-36.0 RED CELL DISTRIBUTION WIDTH (BEAKER) (test code = 412) 12.0 % 10.3-14.2 PLATELET COUNT (BEAKER) (test code = 756) 206 K/CU MM 150-430 MEAN PLATELET VOLUME (BEAKER) (test code = 754) 8.2 fL 6.5-10 .5 NUCLEATED RED BLOOD CELLS (BEAKER) (test code = 413) 0 /100 WBC 0 -0 NEUTROPHILS RELATIVE PERCENT (BEAKER) (test code = 429) 41 % LYMPHOCYTES RELATIVE PERCENT (BEAKER) (test code = 430) 46 % MONOCYTES RELATIVE PERCENT (BEAKER) (test code = 431) 10 % EOSINOPHILS RELATIVE PERCENT (BEAKER) (test code = 432) 3 % BASOPHILS RELATIVE PERCENT (BEAKER) (test code = 437) 1 % NEUTROPHILS ABSOLUTE COUNT (BEAKER) (test code = 670) 3.21 K/ L 1.80-8.00 LYMPHOCYTES ABSOLUTE COUNT (BEAKER) (test code = 414) 3.63 K/ L 1.48-4.50 MONOCYTES ABSOLUTE COUNT (BEAKER) (test code = 415) 0.75 K/ L 0. 00-1.30 EOSINOPHILS ABSOLUTE COUNT (BEAKER) (test code = 416) 0.24 K/ L 0.00-0.50 BASOPHILS ABSOLUTE COUNT (BEAKER) (test code = 417) 0.08 K/ L 0. 00-0.20 0.00(MANUAL DIFFERENTIAL)2016-11-09 08:14:00* Test Item Value Reference Range Interpretation Comments TOTAL COUNTED (BEAKER) (test code = 1351) BASIC METABOLIC [id number] 05:15:00* Test Item Value Reference Range Interpretation Comments SODIUM (BEAKER) (test code = 381) 139 meq/L 136-145 POTASSIUM (BEAKER) (test code = 379) 4.0 meq/L 3.5-5.1 CHLORIDE (BEAKER) (test code = 382) 105 meq/L 98-107 CO2 (BEAKER) (test code = 355) 25 meq/L 22-29 BLOOD UREA NITROGEN (BEAKER) (test code = 354) 15 mg/dL 7-21 CREATININE (BEAKER) (test code = 358) 1.03 mg/dL 0.57-1.25 GLUCOSE RANDOM (BEAKER) (test code = 652) 109 mg/dL 70-105 H CALCIUM (BEAKER) (test code = 697) 9.5 mg/dL 8.4-10.2 EGFR (BEAKER) (test code = 1092) 52 mL/min/1.73 sq m ESTIMATED GFR IS NOT ACCURATE CREATININE CLEARANCE IN PREDICTING GLOMERULAR FILTRATION RATE. ESTIMATED GFR IS NOT APPLICABLE FOR DIALYSIS PATIENTS. PT/[id number] 05:09:00* Test Item Value Reference Range Interpretation Comments PROTIME (BEAKER) (test code = 759) 13.7 seconds 11.7-14.7 INR (BEAKER) (test code = 370) 1.1 <=5.9 PARTIAL THROMBOPLASTIN TIME (BEAKER) (test code = 760) 34.5 seconds 22.5-36.0 RECOMMENDED COUMADIN/WARFARIN INR THERAPY RANGESSTANDARD DOSE: 2.0 - 3.0 Inclu john: PROPHYLAXIS for venous thrombosis, systemic embolization; TREATMENT for afia ous thrombosis and/or pulmonary embolus.HIGH RISK: Target INR is 2.5-3.5 for pat ients with mechanical heart valves.CBC W/PLT COUNT & AUTO [id number] 11:29:00* Test Item Value Reference Range Interpretation Comments WHITE BLOOD CELL COUNT (BEAKER) (test code = 775) 8.1 K/ L 4.0- 10.0 RED BLOOD CELL COUNT (BEAKER) (test code = 761) 4.31 M/ L 4.00-5 .00 HEMOGLOBIN (BEAKER) (test code = 410) 13.0 GM/DL 12.0-15.0 HEMATOCRIT (BEAKER) (test code = 411) 38.8 % 36.0-45.0 MEAN CORPUSCULAR VOLUME (BEAKER) (test code = 753) 90.1 fL 82. 0-99.0 MEAN CORPUSCULAR HEMOGLOBIN (BEAKER) (test code = 751) 30.1 pg 27.0-33.0 MEAN CORPUSCULAR HEMOGLOBIN CONC (BEAKER) (test code = 752) 33.4 GM/DL 32.0-36.0 RED CELL DISTRIBUTION WIDTH (BEAKER) (test code = 412) 13.0 % 10.3-14.2 PLATELET COUNT (BEAKER) (test code = 756) 227 K/CU MM 150-430 MEAN PLATELET VOLUME (BEAKER) (test code = 754) 8.0 fL 6.5-10 .5 NUCLEATED RED BLOOD CELLS (BEAKER) (test code = 413) 0 /100 WBC 0 -0 NEUTROPHILS RELATIVE PERCENT (BEAKER) (test code = 429) 37 % LYMPHOCYTES RELATIVE PERCENT (BEAKER) (test code = 430) 48 % MONOCYTES RELATIVE PERCENT (BEAKER) (test code = 431) 11 % EOSINOPHILS RELATIVE PERCENT (BEAKER) (test code = 432) 4 % BASOPHILS RELATIVE PERCENT (BEAKER) (test code = 437) 1 % NEUTROPHILS ABSOLUTE COUNT (BEAKER) (test code = 670) 2.97 K/ L 1.80-8.00 LYMPHOCYTES ABSOLUTE COUNT (BEAKER) (test code = 414) 3.89 K/ L 1.48-4.50 MONOCYTES ABSOLUTE COUNT (BEAKER) (test code = 415) 0.86 K/ L 0. 00-1.30 EOSINOPHILS ABSOLUTE COUNT (BEAKER) (test code = 416) 0.35 K/ L 0.00-0.50 BASOPHILS ABSOLUTE COUNT (BEAKER) (test code = 417) 0.06 K/ L 0. 00-0.20 0.00(MANUAL DIFFERENTIAL)2016-11-08 11:29:00* Test Item Value Reference Range Interpretation Comments TOTAL COUNTED (BEAKER) (test code = 1351) WBC MORPHOLOGY (BEAKER) (test code = 487) Normal PLT MORPHOLOGY (BEAKER) (test code = 486) Normal RBC MORPHOLOGY (BEAKER) (test code = 762) Normal [id number] 09:03:00* Test Item Value Reference Range Interpretation Comments PROTIME (BEAKER) (test code = 759) 13.9 seconds 11.7-14.7 INR (BEAKER) (test code = 370) 1.1 <=5.9 PARTIAL THROMBOPLASTIN TIME (BEAKER) (test code = 760) 51.8 seconds 22.5-36.0 H RECOMMENDED COUMADIN/WARFARIN INR THERAPY RANGESSTANDARD DOSE: 2.0 - 3.0 Inclu john: PROPHYLAXIS for venous thrombosis, systemic embolization; TREATMENT for afia ous thrombosis and/or pulmonary embolus.HIGH RISK: Target INR is 2.5-3.5 for pat ients with mechanical heart valves.[id number] 07:06:00* Test Item Value Reference Range Interpretation Comments MAGNESIUM (BEAKER) (test code = 627) 2.2 mg/dL 1.6-2.6 Specimen moderately hemolyzed BASIC METABOLIC [id number] 07:06:00* Test Item Value Reference Range Interpretation Comments SODIUM (BEAKER) (test code = 381) 137 meq/L 136-145 POTASSIUM (BEAKER) (test code = 379) 4.7 meq/L 3.5-5.1 Specimen moderately hemolyzed CHLORIDE (BEAKER) (test code = 382) 103 meq/L 98-107 CO2 (BEAKER) (test code = 355) 24 meq/L 22-29 BLOOD UREA NITROGEN (BEAKER) (test code = 354) 17 mg/dL 7-21 CREATININE (BEAKER) (test code = 358) 1.02 mg/dL 0.57-1.25 Specimen moderately hemolyzed GLUCOSE RANDOM (BEAKER) (test code = 652) 105 mg/dL 70-105 CALCIUM (BEAKER) (test code = 697) 9.6 mg/dL 8.4-10.2 EGFR (BEAKER) (test code = 1092) 53 mL/min/1.73 sq m ESTIMATED GFR IS NOT ACCURATE CREATININE CLEARANCE IN PREDICTING GLOMERULAR FILTRATION RATE. ESTIMATED GFR IS NOT APPLICABLE FOR DIALYSIS PATIENTS. [id number] 09:50:00* Test Item Value Reference Range Interpretation Comments MAGNESIUM (BEAKER) (test code = 627) 1.8 mg/dL 1.6-2.6 [id number] 07:19:00* Test Item Value Reference Range Interpretation Comments MAGNESIUM (BEAKER) (test code = 627) 1.4 mg/dL 1.6-2.6 L BASIC METABOLIC [id number] 07:19:00* Test Item Value Reference Range Interpretation Comments SODIUM (BEAKER) (test code = 381) 138 meq/L 136-145 POTASSIUM (BEAKER) (test code = 379) 3.8 meq/L 3.5-5.1 CHLORIDE (BEAKER) (test code = 382) 103 meq/L 98-107 CO2 (BEAKER) (test code = 355) 25 meq/L 22-29 BLOOD UREA NITROGEN (BEAKER) (test code = 354) 20 mg/dL 7-21 CREATININE (BEAKER) (test code = 358) 1.05 mg/dL 0.57-1.25 GLUCOSE RANDOM (BEAKER) (test code = 652) 95 mg/dL 70-105 CALCIUM (BEAKER) (test code = 697) 9.9 mg/dL 8.4-10.2 EGFR (BEAKER) (test code = 1092) 51 mL/min/1.73 sq m ESTIMATED GFR IS NOT ACCURATE CREATININE CLEARANCE IN PREDICTING GLOMERULAR FILTRATION RATE. ESTIMATED GFR IS NOT APPLICABLE FOR DIALYSIS PATIENTS. [id number] 09:48:00* Test Item Value Reference Range Interpretation Comments MAGNESIUM (BEAKER) (test code = 627) 1.7 mg/dL 1.6-2.6 BASIC METABOLIC [id number] 09:48:00* Test Item Value Reference Range Interpretation Comments SODIUM (BEAKER) (test code = 381) 138 meq/L 136-145 POTASSIUM (BEAKER) (test code = 379) 3.9 meq/L 3.5-5.1 CHLORIDE (BEAKER) (test code = 382) 105 meq/L 98-107 CO2 (BEAKER) (test code = 355) 20 meq/L 22-29 L BLOOD UREA NITROGEN (BEAKER) (test code = 354) 24 mg/dL 7-21 H CREATININE (BEAKER) (test code = 358) 1.12 mg/dL 0.57-1.25 GLUCOSE RANDOM (BEAKER) (test code = 652) 103 mg/dL 70-105 CALCIUM (BEAKER) (test code = 697) 9.7 mg/dL 8.4-10.2 EGFR (BEAKER) (test code = 1092) 48 mL/min/1.73 sq m ESTIMATED GFR IS NOT ACCURATE CREATININE CLEARANCE IN PREDICTING GLOMERULAR FILTRATION RATE. ESTIMATED GFR IS NOT APPLICABLE FOR DIALYSIS PATIENTS. CBC W/PLT COUNT & AUTO [id number] 09:48:00* Test Item Value Reference Range Interpretation Comments WHITE BLOOD CELL COUNT (BEAKER) (test code = 775) 7.3 K/ L 4.0- 10.0 RED BLOOD CELL COUNT (BEAKER) (test code = 761) 4.25 M/ L 4.00-5 .00 HEMOGLOBIN (BEAKER) (test code = 410) 12.9 GM/DL 12.0-15.0 HEMATOCRIT (BEAKER) (test code = 411) 38.5 % 36.0-45.0 MEAN CORPUSCULAR VOLUME (BEAKER) (test code = 753) 90.4 fL 82. 0-99.0 MEAN CORPUSCULAR HEMOGLOBIN (BEAKER) (test code = 751) 30.3 pg 27.0-33.0 MEAN CORPUSCULAR HEMOGLOBIN CONC (BEAKER) (test code = 752) 33.5 GM/DL 32.0-36.0 RED CELL DISTRIBUTION WIDTH (BEAKER) (test code = 412) 13.3 % 10.3-14.2 PLATELET COUNT (BEAKER) (test code = 756) 217 K/CU MM 150-430 MEAN PLATELET VOLUME (BEAKER) (test code = 754) 8.4 fL 6.5-10 .5 NUCLEATED RED BLOOD CELLS (BEAKER) (test code = 413) 0 /100 WBC 0 -0 NEUTROPHILS RELATIVE PERCENT (BEAKER) (test code = 429) 35 % LYMPHOCYTES RELATIVE PERCENT (BEAKER) (test code = 430) 47 % MONOCYTES RELATIVE PERCENT (BEAKER) (test code = 431) 11 % EOSINOPHILS RELATIVE PERCENT (BEAKER) (test code = 432) 6 % BASOPHILS RELATIVE PERCENT (BEAKER) (test code = 437) 1 % NEUTROPHILS ABSOLUTE COUNT (BEAKER) (test code = 670) 2.52 K/ L 1.80-8.00 LYMPHOCYTES ABSOLUTE COUNT (BEAKER) (test code = 414) 3.44 K/ L 1.48-4.50 MONOCYTES ABSOLUTE COUNT (BEAKER) (test code = 415) 0.81 K/ L 0. 00-1.30 EOSINOPHILS ABSOLUTE COUNT (BEAKER) (test code = 416) 0.42 K/ L 0.00-0.50 BASOPHILS ABSOLUTE COUNT (BEAKER) (test code = 417) 0.06 K/ L 0. 00-0.20 0.00(MANUAL DIFFERENTIAL)2016-11-05 09:48:00* Test Item Value Reference Range Interpretation Comments TOTAL COUNTED (BEAKER) (test code = 1351) WBC MORPHOLOGY (BEAKER) (test code = 487) Normal PLT MORPHOLOGY (BEAKER) (test code = 486) Normal RBC MORPHOLOGY (BEAKER) (test code = 762) Normal CBC W/PLT COUNT & AUTO [id number] 10:04:00* Test Item Value Reference Range Interpretation Comments WHITE BLOOD CELL COUNT (BEAKER) (test code = 775) 9.5 K/ L 4.0- 10.0 RED BLOOD CELL COUNT (BEAKER) (test code = 761) 4.06 M/ L 4.00-5 .00 HEMOGLOBIN (BEAKER) (test code = 410) 12.5 GM/DL 12.0-15.0 HEMATOCRIT (BEAKER) (test code = 411) 36.8 % 36.0-45.0 MEAN CORPUSCULAR VOLUME (BEAKER) (test code = 753) 90.5 fL 82. 0-99.0 MEAN CORPUSCULAR HEMOGLOBIN (BEAKER) (test code = 751) 30.7 pg 27.0-33.0 MEAN CORPUSCULAR HEMOGLOBIN CONC (BEAKER) (test code = 752) 33.9 GM/DL 32.0-36.0 RED CELL DISTRIBUTION WIDTH (BEAKER) (test code = 412) 13.3 % 10.3-14.2 PLATELET COUNT (BEAKER) (test code = 756) 200 K/CU MM 150-430 MEAN PLATELET VOLUME (BEAKER) (test code = 754) 8.3 fL 6.5-10 .5 NUCLEATED RED BLOOD CELLS (BEAKER) (test code = 413) 0 /100 WBC 0 -0 NEUTROPHILS RELATIVE PERCENT (BEAKER) (test code = 429) 42 % LYMPHOCYTES RELATIVE PERCENT (BEAKER) (test code = 430) 43 % MONOCYTES RELATIVE PERCENT (BEAKER) (test code = 431) 10 % EOSINOPHILS RELATIVE PERCENT (BEAKER) (test code = 432) 4 % BASOPHILS RELATIVE PERCENT (BEAKER) (test code = 437) 1 % NEUTROPHILS ABSOLUTE COUNT (BEAKER) (test code = 670) 3.94 K/ L 1.80-8.00 LYMPHOCYTES ABSOLUTE COUNT (BEAKER) (test code = 414) 4.07 K/ L 1.48-4.50 MONOCYTES ABSOLUTE COUNT (BEAKER) (test code = 415) 0.97 K/ L 0. 00-1.30 EOSINOPHILS ABSOLUTE COUNT (BEAKER) (test code = 416) 0.40 K/ L 0.00-0.50 BASOPHILS ABSOLUTE COUNT (BEAKER) (test code = 417) 0.08 K/ L 0. 00-0.20 0.00(MANUAL DIFFERENTIAL)2016-11-04 10:04:00* Test Item Value Reference Range Interpretation Comments TOTAL COUNTED (BEAKER) (test code = 1351) WBC MORPHOLOGY (BEAKER) (test code = 487) Normal PLT MORPHOLOGY (BEAKER) (test code = 486) Normal RBC MORPHOLOGY (BEAKER) (test code = 762) Normal [id number] 08:19:00* Test Item Value Reference Range Interpretation Comments MAGNESIUM (BEAKER) (test code = 627) 1.2 mg/dL 1.6-2.6 L BASIC METABOLIC [id number] 08:19:00* Test Item Value Reference Range Interpretation Comments SODIUM (BEAKER) (test code = 381) 136 meq/L 136-145 POTASSIUM (BEAKER) (test code = 379) 4.7 meq/L 3.5-5.1 CHLORIDE (BEAKER) (test code = 382) 105 meq/L 98-107 CO2 (BEAKER) (test code = 355) 18 meq/L 22-29 L BLOOD UREA NITROGEN (BEAKER) (test code = 354) 21 mg/dL 7-21 CREATININE (BEAKER) (test code = 358) 1.10 mg/dL 0.57-1.25 GLUCOSE RANDOM (BEAKER) (test code = 652) 90 mg/dL 70-105 CALCIUM (BEAKER) (test code = 697) 9.7 mg/dL 8.4-10.2 EGFR (AlloCureAKER) (test code = 1092) 49 mL/min/1.73 sq m ESTIMATED GFR IS NOT ACCURATE CREATININE CLEARANCE IN PREDICTING GLOMERULAR FILTRATION RATE. ESTIMATED GFR IS NOT APPLICABLE FOR DIALYSIS PATIENTS.
[2020-06-30 21:55] LABS: BASOPHILS # (AUTO) 0.1 (0.0-0.1); BASOPHILS % 0.6 % (0.0-1.0); EOSINOPHILS # (AUTO) 0.2 (0.0-0.4); EOSINOPHILS % 1.4 % (0.0-6.0); HEMATOCRIT 23.5 % (34.2-44.1); HEMOGLOBIN 7.2 g/dL (12.0-16.0); LYMPHOCYTES # (AUTO) 5.1 (1.0-3.2); LYMPHOCYTES % 35.4 % (18.0-39.1); MEAN CORPUSCULAR HEMOGLOBIN 26.9 pg (28-32); MEAN CORPUSCULAR HGB CONC 30.6 g/dL (31-35); MEAN CORPUSCULAR VOLUME 87.7 fL (81-99); MONOCYTES # (AUTO) 1.8 (0.2-0.8); NEUTROPHILS # (AUTO) 7.3 (2.1-6.9); PLATELET COUNT 352 x10e3/uL (140-360); RED BLOOD COUNT 2.68 x10e6/uL (3.6-5.1)
[2020-06-30 22:05] LABS: INR 1.06; PARTIAL THROMBOPLASTIN TIME 25.5 seconds (23.8-35.5); PROTHROMBIN TIME 14.3 seconds (11.9-14.5)
[2020-06-30 22:14] LABS: ALBUMIN/GLOBULIN RATIO 0.8 (0.8-2.0); ANION GAP 14.1 mmol/L (8-16); CALCIUM 8.8 mg/dL (8.4-10.2); CREATININE, SERUM 1.74 mg/dL (0.57-1.11); POTASSIUM 4.1 mmol/L (3.5-5.1)
[2020-06-30 22:23] LABS: AMYLASE 248 U/L (25-125); LIPASE 131 U/L (8-78)
--- NOTE | 2020-06-30 23:59 | Diagnostic Imaging Report ---
EXAM: CT Abdomen and Pelvis WITHOUT contrast INDICATION: ^abd pain, low hemoglobin, dark stools ^[id number] ^2251 ^Y COMPARISON: None. TECHNIQUE: Abdomen and pelvis were scanned utilizing a multidetector helical scanner from the lung base to the pubic symphysis without administration of IV contrast. Absence of intravenous contrast decreases sensitivity for detection of focal lesions and vascular pathology. Coronal and sagittal reformations were obtained. Routine protocol was performed. IV CONTRAST: None ORAL CONTRAST: None COMPLICATIONS: None RADIATION DOSE: Total DLP: ... 413 mGy*cm Estimated effective dose: (DLP x 0.015 x size factor) mSv CTDIvol has been reviewed. It is below the limits set by the Radiation Protocol Committee (RPC). Dose modulation, iterative reconstruction, and/or weight based adjustment of the mA/kV was utilized to reduce the radiation dose to as low as reasonably achievable. FINDINGS: LINES and TUBES: None. LOWER THORAX: Scarring in the lung bases. Surgical changes in the coronaries. Mitral and aortic valve hyperdensities. Unremarkable HEPATOBILIARY: Nodular hepatic surface contour. No focal hepatic lesions. No biliary ductal dilation. GALLBLADDER: Tiny layering hyperdensity in the gallbladder neck, likely sludge. SPLEEN: No splenomegaly. PANCREAS: No focal masses or ductal dilatation. ADRENALS: No adrenal nodules KIDNEYS/URETERS: No hydronephrosis. No cystic or solid mass lesions. Punctate left renal superior pole nonobstructive calculus. GI TRACT: No abnormal distention, wall thickening, or evidence of bowel obstruction. Colonic diverticulosis. Appendix is normal. PELVIC ORGANS/BLADDER: Hysterectomy. No adnexal masses. Urinary bladder unremarkable. Unremarkable. LYMPH NODES: No lymphadenopathy. VESSELS: Arterial calcifications. PERITONEUM / RETROPERITONEUM: No free air or fluid. BONES: Degenerative changes. Sternotomy wires. SOFT TISSUES: Right proximal medial thigh fat stranding, likely due to prior vascular access or surgery.. IMPRESSION: Moderate volume of stool in the colon is seen for constipation. The stool is radiopaque, a blood component is possible. Tiny layering hyperdensity in the gallbladder neck, likely calcific sludge. Nodular hepatic surface contour can be seen with cirrhosis. No evidence of portal hypertension. Colonic diverticulosis without diverticulitis. Punctate left renal superior pole nonobstructive calculus. Signed by: Gonsalo Shah DO on 06/30/2020 11:55 PM
[2020-07-01] MEDS ORDERED: ONDANSETRON HCL INJ 2MG/ML 2ML 2 MG/ML VIAL IV STA (00:10)
[2020-07-01] MEDS ORDERED: MORPHINE SULFATE INJ 4 MG/ML INJ 1ML IV STA (00:10)
[2020-07-01] MEDS ORDERED: SODIUM CHLORIDE 0.9% 1000ML 1,000 ML IV ONE (00:15)
[2020-07-01] MEDS ORDERED: PIPER-TAZ 3.375 GM 50 ML IV ONE (00:15)
[2020-07-01 00:17] LABS: BILIRUBIN,URINE NEGATIVE (NEGATIVE); CLARITY,URINE SL CLOUDY (CLEAR); COLOR,URINE YELLOW (YELLOW); KETONES,URINE NEGATIVE (NEGATIVE); LEUKOCYTE ESTERASE ,URINE SMALL (NEGATIVE); NITRITE,URINE NEGATIVE (NEGATIVE); PROTEIN,URINE DIPSTICK NEGATIVE (NEGATIVE); URINE UROBILINOGEN 0.2 mg/dL (0.2 - 1)
--- NOTE | 2020-07-01 00:17 | NUR ---
TRANSFER INITIATED, SPOKE TO Terence ESCALONA AT TRANSFER
[2020-07-01 00:25] LABS: BACTERIA,URINE FEW /HPF; EPITHELIAL CELLS,URINE MANY /LPF; RBC,URINE 0-5 /HPF (0-5)
[2020-07-01 02:28] VITALS: BP 162/49
--- NOTE | 2020-07-01 02:33 | NUR ---
son called per patient request to inform of transfer to [facility]. dr palm spoke to son.
== END 2020-07-01 02:56 | disposition other institution (70) ==
LOC: ER 19:01
DX: K85.90 Acute pancreatitis without necrosis or infection, unspecified (principal); R10.84 Generalized abdominal pain; N20.0 Calculus of kidney; K82.9 Disease of gallbladder, unspecified; D64.9 Anemia, unspecified; K57.90 Diverticulosis of intestine, part unspecified, without perforation or abscess without bleeding; E11.65 Type 2 diabetes mellitus with hyperglycemia; I10 Essential (primary) hypertension; E78.5 Hyperlipidemia, unspecified; I25.10 Atherosclerotic heart disease of native coronary artery without angina pectoris; Z95.1 Presence of aortocoronary bypass graft; Z11.59 Encounter for screening for other viral diseases
CPT/HCPCS: 36415; 74176; 80053; 81001; 82150; 83690; 85025; 85610; 85730; 86850; 86900; 99284; J2543; J7030; U0002